=== PATIENT | male | born 1945 | race Caucasian/White ===

== ENCOUNTER 2023-06-05 06:37 | Day surgery (SDC) | payer MEDICARE, OTHER, SELFPAY ==
--- NOTE | 2023-05-31 14:16 | PTCARENOTE ---
Diagnosed with pneumonia in April 2023. Repeat chest x-ray on 05/30/23 continues to show pneumonia. Jazmín at Dr. Corcoran's office aware. Patient needs to be cleared by Primary Care Physician stating that he can proceed with schedule surgery.
[2023-06-05] VITALS (7 sets, daily range): BP systolic 122–178; BP diastolic 68–98; BMI 28.7
[2023-06-05] MEDS: LOVENOX 40 MG SC (13:19)
[2023-06-05] MEDS: TYLENOL 1000 MG PO (13:19)
[2023-06-05 13:27] LABS: Glucose - Point of Care 182 mg/dl (70-99)
[2023-06-05] MEDS: IC GREEN 2.5 MG IV (13:28)
[2023-06-05] MEDS: NORMOSOL-R 1000 IV (13:28)
[2023-06-05 13:46] LABS: INR 1.13; PT 14.7 Sec (11.4-14.6)
--- NOTE | 2023-06-05 15:16 | OR.RPT ---
Operative Report
Operative Report
Primary Surgeon: Jewell
Assisting: Nano GARNER
Pre-op Diagnosis: Acute calculous cholecystitis
Post-op Diagnosis: Same
Procedure Performed: Robot assisted laparoscopic cholecystectomy
Anesthesia Type: GETA
Specimen / Cultures: Gallbladder
Estimated Blood Loss: 10cc
Complications: None immediate
Operative Findings: Infundibulum encased in dense scar, ultimately taken with PDS endoloop.
Date of Surgery:� 06/05/23
Indications: This 77M developed acute calculous cholecystitis that was initially managed with percutaneous drain. Interval laparoscopic cholecystectomy was elected. Cholangiogram was performed outpatient in the interim demonstrating patent cystic
and common ducts.
Description of procedure: The patient was placed on the operating table in the supine position. General anesthesia was induced. A time-out was completed verifying correct patient, procedure, site, positioning, and special equipment prior to
beginning this procedure. An orogastric tube was placed. The abdomen was prepped and draped in the usual sterile fashion. The drain was prepped into the field. A stab incision was made in left upper quadrant and the Veress needle was inserted.
Proper position was confirmed by aspiration and saline meniscus test. The abdomen was insufflated with carbon dioxide to a pressure of 12mmHg. The patient tolerated insufflation well. Intra-abdominal mesh was not visible on inspection. All trocars
were placed superior to the level of the ileal conduit.
A 8mm trocar was then inserted above the umbilicus. The laparoscope was inserted and the abdomen inspected. No injuries from initial trocar placement or Veress needle insertion were noted. Additional 8mm trocars were then inserted in the following
locations: two in the right lower quadrant and to the left of the umbilicus and just above. The abdomen was inspected and no abnormalities were found. The table was placed in the reverse Trendelenburg position with the right side up. Filmy omental
and colonic adhesions were taken down. The dome of the gallbladder was grasped with an atraumatic grasper and retracted over the dome of the liver. The infundibulum was then grasped with an atraumatic grasper and retracted toward the right lower
quadrant. The infundibulum was encased in dense scar tissue. Dissection proceeded in an effort to fully expose Calot�s triangle. There was dense scar tissue encasing this area of the anatomy. A top down approach was used to take down the posterior
wall of the gallbladder from the liver bed until the gallbladder could be retracted away from the liver to reveal a single tubular structure connecting it to the liver. The common duct was identified with ICG and protected.
The cystic duct was then controlled with a PDS endoloop. The cystic artery was identified medially, controlled with bipolar and divided. The gallbladder was then dissected from its peritoneal attachments by electrocautery. Hemostasis was assured and
the gallbladder was removed using an endoscopic retrieval bag placed through the umbilical port. The gallbladder was passed off the table as a specimen. The gallbladder fossa was closely inspected and hemostasis was again assured. There was no
evidence of bleeding from the gallbladder fossa or cystic artery or leakage of the bile from the cystic duct stump. The umbilical trocar site was closed at the fascial level with 2-0 PDS. Secondary trocars were removed under direct vision and noted
to be hemostatic. The abdomen was allowed to collapse. The skin was closed with subcuticular sutures of 4-0 monocryl and topical skin adhesive. The orogastric tube was removed.
The patient tolerated the procedure well and was taken to the postanesthesia care unit in stable condition.
[2023-06-05 15:40] LABS: Glucose - Point of Care 214 mg/dl (70-99)
[2023-06-05] MEDS: NOVOLOG vial 2 UNITS SC (15:44)
== END 2023-06-05 17:08 | disposition home or self-care (01) ==
LOC: SDS 06:37
PROVIDERS: ATTENDING PHYSICIAN Surgery
DX: K80.00 Calculus of gallbladder with acute cholecystitis without obstruction (principal); K66.0 Peritoneal adhesions (postprocedural) (postinfection)
CPT/HCPCS: 47562; 88304; 82962; 85610; 87070

== ENCOUNTER 2023-07-17 09:06 | Emergency (ER) | payer MEDICARE, OTHER, SELFPAY ==
[2023-07-17 09:16] VITALS: BP 141/87
--- NOTE | 2023-07-17 09:49 | ED.GENMED ---
Addendum entered and electronically signed by Vahe Davey PA-C 07/20/23 07:56:
Culture results show pseudomonas. Changed omnicef to cipro. Spoke with patient. Sent script in.
Addendum entered and electronically signed by Vahe Davey PA-C 07/19/23 07:18:
Urine culture demonstrates greater than 100,000 colony-forming units of gram-negative bacilli. Spoke with patient. Called in prescription for Omnicef. Sensitivities pending
Original Note:
History of Present Illness
General
Chief Complaint: Breathing Problem
Source: patient
Time Seen by Provider: 07/17/23 09:28
Travel History
Have you had any contact with someone who has COVID-19?: No
Do you have any symptoms of coronavirus? Fever > 100 degrees, chills, cough, shortness of breath, sore throat, loss of taste or smell, muscle aches, or headache?: No
History of Present Illness
History of Present Illness:
77-year-old gentleman presents to the emergency room for evaluation of a sensation that he cannot take a deep breath. He does not feel out of breath or dyspneic but rather has a sensation that his ability to take a deep breath is restricted. He
also has occasional discomfort in the epigastrium. Patient denies any fever or chills. He has a urostomy and has had frequent urinary tract infections. Symptoms began after he began taking amoxicillin which she takes on his own when he feels like
he might have a urinary tract infection. He has since stopped taking amoxicillin.
Past History
Past History
ED Past Medical History: Arrthythmia (Atrial fib), Cancer (Bladder CA), GERD, HTN, Hypercholesterolemia, IDDM and Other (Ulcers, Diverticulitis; cholecystitis, neuropathy, chronic dizziness)
ED Past Surgical History: Appendectomy, Urological (Bladder CA with removal and Ileol conduit) and Other (Ventral hernia)
Social History
Tobacco: Former smoker
Alcohol: Occasional
Drug: None
Personal:
Living: with family
Employment: Retired
Family History
Family History: Other (Noncontributory)
Phy Exam
Physical Exam
Physical Exam:
General: Awake, Alert, Oriented X3. No acute distress. Appears stated age.
Vitals: unremarkable
Head: Atraumatic
Eyes: Pupils equal, EOMI
Throat: Airway intact, no exudates
Neck: Trachea midline
Lungs: Clear and equal b/l
Heart: Regular rate, no murmurs
Abd: Soft, Nontender, No pulsatile mass. Urostomy noted
Neuro: Nonfocal
Skin: Warm, dry, no rash
Extremities: pulses equal b/l, no edema
Scores
Heart Failure Risk
Heart Failure Risk Score: Not Applicable
Course
Orders/Labs/Results
Orders:
Orders
07/17/23 09:23
Electrocardiogram (*1) Urgent
Reason for Study: Shortness of Breath
EKG- Treatment ONCE
07/17/23 09:48
CR Chest - 2 Views Urgent
Comment:
Reason For Exam: shortness of breath
07/17/23 09:49
Cardiac Monitoring- Treatment ONCE
07/17/23 11:10
Complete Blood Count/With Diff Urgent
Comprehensive Metabolic Panel Urgent
Prothrombin Time Urgent
Troponin I Urgent
07/17/23 11:52
Urinalysis Reflex To Culture Urgent
Date Specimen was Collected: 07/17/23
Time Specimen was Collected: 11:50
Urine Microscopic Reflex Cult Urgent
Urine Culture Urgent
GREGG Source: U
Specimen Description:
Date Specimen was Collected: 07/17/23
Time Specimen was Collected: 11:50
Abnormal Lab Results
07/17/23 07/17/23
11:10 11:52
WBC 4.2 L 10^3/uL
(4.8-10.8)
RBC 3.93 L 10^6/uL
(4.70-6.10)
Hgb 12.1 L g/dL
(13.0-18.0)
Hct 36.2 L %
(39.0-52.0)
RDW 15.4 H %
(11.5-14.5)
Plt Count 103 L 10^3/uL
(130-400)
MPV 12.3 H fL
(7.4-10.4)
Absolute Lymphs (auto) 1.0 L 10^3/uL
(1.2-3.4)
Immature Gran % 1.0 H %
(0-0.5)
PT 25.8 H Sec
(11.4-14.6)
Sodium 134 L mmol/L
(135-145)
Carbon Dioxide 21 L mmol/L
(22-30)
BUN 24 H mg/dl
(9-20)
Creatinine 1.4 H mg/dL
(0.7-1.3)
Glucose 234 H mg/dl
(70-99)
Urine Ketones Trace A
(Negative)
Ur Occult Blood Reflex 1+ A
(Negative)
Leukocyte Esterase Rfl 2+ A
(Negative)
Urine WBC (Reflex) 11-15 A /HPF
(0-5)
Urine Bacteria (Reflex) Few A
(Negative)
07/17/23 11:10
07/17/23 11:10
Vital Signs
Initial and Last Documented VS:
Initial Vital Signs
Temp Pulse Resp BP Pulse Ox
98.0 F 106 16 141/87 98
07/17/23 09:16 07/17/23 09:16 07/17/23 09:16 07/17/23 09:16 07/17/23 09:16
Last Documented Vital Signs
Temp Pulse Resp BP Pulse Ox
97.7 F 73 16 145/72 96
07/17/23 13:58 07/17/23 13:58 07/17/23 13:58 07/17/23 13:58 07/17/23 13:58
MDM/Problems Addressed
Differential Diagnosis Includes:
Heart failure, dehydration bronchitis
MDM/Problems Addressed:
Patient has labs here which are reassuring. There is no significant anemia. Chemistries show mild elevation of BUN and creatinine which is baseline for the patient. Troponin is normal. Urinalysis shows 11-50 WBCs per high-power field but given
he has a urostomy I am not convinced this reflects infection. Culture will be sent and treatment can be initiated if he does not fact grow something from his urine culture. No evidence for an unstable process requiring hospitalization. Patient
will be discharged home. Return for feeling worse.
Chronic conditions affecting care: Arrhythmia (Atrial fibrillation)
*Radiology
Radiology exam reviewed: radiology read reviewed
*Pulse Oximetry
Patient hypoxic: no
*EKG
Interpreted by ED Provider?: Yes
Interpretation: abnormal
Comparison EKG: no changes
Heart Rate: 94
Rate: normal
Rhythm: a-fib
[place]: normal axis
Interval: normal interval
QRS Pattern: normal QRS
Ischemia: non-specific ST changes
*Loan Closer Interpretation
Rate: normal
Rhythm: a-fib
*Critical Care Note
Total Time (30-74mins, 75-104mins- exclusive of procedures): Not Applicable
ED Attending Note
-
Portions of this chart may have been created with voice recognition software.� Occasional wrong word or��sound alike� substitutions may have occurred due to the inherent limitations of voice recognition software.
Discharge Plan
Departure
Patient Disposition: Home (Routine Discharge)
Date of Disposition: 07/17/23
Time of Disposition: 13:26
Patient with high blood pressure during this ER visit?: Yes
Condition: Good
Discharge Problem:
Acute dyspnea
Instructions: Shortness of Breath (Dyspnea) (DC), BLOOD PRESSURE
Prescriptions:
No Action
acetaminophen 650 mg Tablet Extended Release
650 mg PO Q8HPRN PRN (Reason: mild pain)
warfarin 5 mg tablet
10 mg PO FR
Hold Instructions: Resume on 03/24/23. Hold warfarin for now pending INR improvement to 3 or less or otherwise instructed by your primary care provider
insulin aspart U-100 [Novolog FlexPen U-100 Insulin] 100 unit/mL (3 mL) Insulin Pen
4 unit SC QPM
Levemir FlexPen 100 unit/mL (3 mL) Insulin Pen
22 unit SC HS
warfarin [Jantoven] 5 MG tablet
5 mg PO SUMOTUWETHSA
Hold Instructions: Resume on 03/24/23. Hold warfarin for now pending INR improvement to 3 or less or otherwise instructed by your primary care provider
insulin aspart U-100 [Novolog FlexPen U-100 Insulin] 300 UNITS/3 ML insulin pen
5 units SC BID@0800,1200
omeprazole 40 mg Capsule,Delayed Release(Dr/Ec)
40 mg PO DAILY
metoprolol succinate 50 mg tablet extended release 24 hr
25 mg PO DAILY
melatonin 5 mg Tablet
5 mg PO HS PRN (Reason: sleep)
oxycodone 5 mg tablet
5 mg PO Q4HPRN PRN (Reason: moderate to severe pain) Qty: 20 0RF
Referrals:
Raphael Lam MD [Family Provider] -
Activity Restrictions/Additional Instructions:
Please follow up with your primary care provider. Return if you feel you are getting worse.
Interventions
Interventions:
*Risk Screen - Suicide Last Done: 07/17/23 10:07
*General Assessment Last Done: 07/17/23 10:07
*Neglect/Abuse Screening Last Done: 07/17/23 13:00
*ED COVID-19 Vaccine History Last Done: 07/17/23 09:16
*Nursing Disposition Last Done: 07/17/23 13:58
ED- Cardiac Assessment Last Done: 07/17/23 12:45
ED- Pulmonary Assessment Last Done: 07/17/23 12:45
Discharge Date and Time
Discharge Date/Time: 07/17/23 14:06
[2023-07-17 10:05] VITALS: BMI 29.1
[2023-07-17 11:33] LABS: INR 2.37; PT 25.8 Sec (11.4-14.6)
[2023-07-17 11:34] LABS: % Eosinophils 2.4 % (0-6); % Lymphocytes 24.4 % (20.5-51.1); % Monocytes 4.3 % (1.7-9.3); % Neutrophils 66.9 % (42.2-75.2); Absolute Eosinophils 0.1 10^3/uL (0-0.7); Absolute Monocytes 0.2 10^3/uL (0.1-0.6); Absolute Neutrophils 2.8 10^3/uL (1.4-6.5); Hematocrit 36.2 % (39.0-52.0); Hemoglobin 12.1 g/dL (13.0-18.0); Mean Corp Hgb Conc. 33.4 g/dL (33.0-37.0); Mean Corpuscular Hgb 30.8 pg (27.0-31.0); Mean Corpuscular Volume 92.1 fL (80.0-94.0); Mean Platelet Volume 12.3 fL (7.4-10.4); Nucleated Red Blood Cells % 0 % (-); Platelet Count 103 10^3/uL (130-400); Red Blood Cell Count 3.93 10^6/uL (4.70-6.10); Red Cell Dist. Width 15.4 % (11.5-14.5); White Blood Cell Count 4.2 10^3/uL (4.8-10.8)
[2023-07-17 11:36] LABS: ALT (SGPT) 14 U/L (0-50); AST (SGOT) 23 U/L (17-59); Alkaline Phosphatase 95 U/L (38-126); Blood Urea Nitrogen 24 mg/dl (9-20); Calcium 8.9 mg/dl (8.4-10.2); Carbon Dioxide 21 mmol/L (22-30); Chloride 106 mmol/L (98-107); Estimated Creatinine Clearance 50 ml/min; Glucose 234 mg/dl (70-99); Potassium 4.5 mmol/L (3.5-5.1); Sodium 134 mmol/L (135-145); Total Bilirubin 1.1 mg/dl (0.2-1.3); Total Protein 6.8 g/dl (6.3-8.2); eGFR 51.77
[2023-07-17 11:47] LABS: Troponin I < 0.012 ng/ml
[2023-07-17 11:55] VITALS: BP 143/89
[2023-07-17 12:00] VITALS: BP 164/77
[2023-07-17 12:03] LABS: Urine Albumin Trace (Neg - Trace); Urine Bilirubin Negative (Negative); Urine Character Clear (Clear); Urine Color Yellow; Urine Glucose Negative (Negative); Urine Ketone Trace (Negative); Urine Leukocyte 2+ (Negative); Urine Nitrite Negative (Negative); Urine Occult Blood 1+ (Negative); Urine Specific Gravity 1.005 (<1.030); Urine Urobilinogen Negative (Neg - 1+)
[2023-07-17 12:10] LABS: Urine Red Blood Cell 0-2 /HPF (0-2); Urine Squamous Cell 0-2 /LPF (Few)
[2023-07-17 12:11] LABS: Urine Bacteria Few (Negative)
[2023-07-17 13:00] VITALS: BP 145/72
[2023-07-17 13:58] VITALS: BP 145/72
== END 2023-07-17 14:06 | disposition home or self-care (01) ==
LOC: EMR 09:06
PROVIDERS: EMERGENCY PHYSICIAN Emergency Medicine; FAMILY PHYSICIAN Internal Medicine
DX: R06.09 Other forms of dyspnea (principal); I10 Essential (primary) hypertension
CPT/HCPCS: 99285; 71046; 80053; 81003; 81015; 84484; 85025; 85610; 87077; 87086; 87186; 93005; 99284

== ENCOUNTER → 2023-08-23 11:10 | Outpatient (REF) | payer MEDICARE, OTHER, SELFPAY | LOC: RAD 11:10 | PROVIDERS: ATTENDING PHYSICIAN Internal Medicine Critical Care Medicine; FAMILY PHYSICIAN Internal Medicine | DX: J84.9 Interstitial pulmonary disease, unspecified (principal) | CPT/HCPCS: 71250 ==

== ENCOUNTER → 2023-09-14 06:34 | Day surgery (SDC) | payer MEDICARE, OTHER, SELFPAY ==
[2023-09-14 10:50] LABS: Glucose - Point of Care 122 mg/dl (70-99)
== END ==
LOC: GI 06:34
PROVIDERS: ATTENDING PHYSICIAN Internal Medicine Gastroenterology
DX: K31.7 Polyp of stomach and duodenum (principal); K31.89 Other diseases of stomach and duodenum; Q39.9 Congenital malformation of esophagus, unspecified; R13.10 Dysphagia, unspecified
CPT/HCPCS: 43239; 88305; 82962; 88342

== ENCOUNTER 2023-11-14 06:30 | Day surgery (SDC) | payer MEDICARE, OTHER, SELFPAY ==
[2023-11-14 12:41] VITALS: BMI 29.7
[2023-11-14 12:51] VITALS: BMI 29.7
[2023-11-14 12:51] LABS: Glucose - Point of Care 147 mg/dl (70-99)
[2023-11-14 12:53] VITALS: BP 147/92
[2023-11-14 15:12] VITALS: BP 125/61
[2023-11-14 15:15] VITALS: BP 135/84
[2023-11-14 15:18] LABS: Glucose - Point of Care 136 mg/dl (70-99)
[2023-11-14 15:37] VITALS: BP 144/61
== END 2023-11-14 16:12 | disposition home or self-care (01) ==
LOC: SDS 06:30
PROVIDERS: ATTENDING PHYSICIAN Internal Medicine Gastroenterology
DX: D49.0 Neoplasm of unspecified behavior of digestive system (principal); D12.2 Benign neoplasm of ascending colon; K64.0 First degree hemorrhoids
CPT/HCPCS: 45390; 88305; 82962

== ENCOUNTER → 2023-11-22 11:11 | Outpatient (REF) | payer MEDICARE, OTHER, SELFPAY | LOC: RCS 11:11 | PROVIDERS: ATTENDING PHYSICIAN Internal Medicine Cardiovascular Disease; FAMILY PHYSICIAN Internal Medicine | DX: I48.21 Permanent atrial fibrillation (principal); I10 Essential (primary) hypertension; N17.9 Acute kidney failure, unspecified; E11.9 Type 2 diabetes mellitus without complications; R06.02 Shortness of breath; Z79.01 Long term (current) use of anticoagulants | CPT/HCPCS: 93306 ==

== ENCOUNTER 2023-11-24 17:11 | Inpatient (IN) | payer MEDICARE, OTHER, SELFPAY ==
[2023-11-24] VITALS (13 sets, daily range): BP systolic 93–141; BP diastolic 46–70; BMI 28.6
[2023-11-24 13:08] LABS: ALT (SGPT) 23 U/L (0-50); AST (SGOT) 28 U/L (17-59); Albumin 3.6 g/dl (3.5-5.0); Alkaline Phosphatase 91 U/L (38-126); Blood Urea Nitrogen 37 mg/dl (9-20); Calcium 8.7 mg/dl (8.4-10.2); Carbon Dioxide 18 mmol/L (22-30); Chloride 109 mmol/L (98-107); Estimated Creatinine Clearance 42 ml/min; Glucose 245 mg/dl (70-99); Potassium 5.1 mmol/L (3.5-5.1); Sodium 137 mmol/L (135-145); Total Protein 5.9 g/dl (6.3-8.2)
--- NOTE | 2023-11-24 13:31 | ED.GENMED ---
History of Present Illness
<Vahe Davey PA-C - Last Filed: 11/24/23 15:29>
General
Chief Complaint: Rectal Bleeding
Source: patient
Time Seen by Provider: 11/24/23 13:04
History of Present Illness
History of Present Illness:
77 year old male on Coumadin for a-fib presents with fatigue, JORGE, and large black and red tinged BM this AM. He feels lightheaded upon standing. He had colonoscopy 2 weeks ago and had polyps removed. He had been doing well after the procedure,
but had some constipation. Was recommended to take miralax which he last took 2 days ago. He admits to 2-3 drinks a week. No NSAIDS. last INR was yesterday which was 2.0. He was also told he had a low platelet count recently and was referred to
hematology. No abdominal or chest pain.
Past History
<Vahe Davey PA-C - Last Filed: 11/24/23 15:29>
Past History
ED Past Medical History: Arrthythmia (Atrial fib), Cancer (Bladder CA), GERD, HTN, Hypercholesterolemia, IDDM and Other (Ulcers, Diverticulitis; cholecystitis, neuropathy, chronic dizziness)
ED Past Surgical History: Appendectomy, Urological (Bladder CA with removal and Ileol conduit) and Other (Ventral hernia)
Social History
Tobacco: Former smoker
Alcohol: Occasional
Drug: None
Personal:
Living: with family
Employment: Retired
Family History
Family History: Other (Noncontributory)
Phy Exam
<Vahe Davey PA-C - Last Filed: 11/24/23 15:29>
Physical Exam
Physical Exam:
General: Pale appearing male, nad
HEENT: nc/at
Heart, tachycardic and irregular
Lungs: CTA
ABd: Soft, nontender, urostomy noted in RLQ
Ext No cyanosis or edema
Skin: warm norash
Rectal: Dark colored stool, heme positive.
Course
<Vahe Davey PA-C - Last Filed: 11/24/23 15:29>
Orders/Labs/Results
Orders:
Orders
11/24/23 12:18
EKG [Electrocardiogram (*1)] Urgent
Reason for Study: Vertigo / Dizzy
EKG- Treatment ONCE
11/24/23 12:33
Type+Screen Urgent
Complete Blood Count/With Diff Urgent
Comprehensive Metabolic Panel Urgent
Prothrombin Time Urgent
11/24/23 13:22
Pantoprazole [Protonix IV] 80 mg IV NOW STA
11/24/23 13:30
Pantoprazole 80 mg/100 ml Nss [Protonix] 80 mg in 100 ml IV Q10H
11/24/23 14:35
Blood Bank Products [* Blood Bank Products] Urgent
Blood Bank Products: *Packed RBC Leuko(PRBC's)
Quantity: 1
Transfuse Today: Yes
Reason: Anemia
11/24/23 14:51
Phytonadione [Mephyton] 10 mg PO NOW STA
Abnormal Lab Results
11/24/23
12:33
WBC 1.8 L* 10^3/uL
(4.8-10.8)
RBC 2.47 L 10^6/uL
(4.70-6.10)
Hgb 7.8 L g/dL
(13.0-18.0)
Hct 23.5 L %
(39.0-52.0)
MCV 95.1 H fL
(80.0-94.0)
MCH 31.6 H pg
(27.0-31.0)
RDW 17.0 H %
(11.5-14.5)
Plt Count 61 L 10^3/uL
(130-400)
MPV 13.7 H fL
(7.4-10.4)
Absolute Neuts (auto) 0.9 L* 10^3/uL
(1.4-6.5)
Absolute Lymphs (auto) 0.7 L 10^3/uL
(1.2-3.4)
Immature Gran % 1.1 H %
(0-0.5)
PT 24.4 H Sec
(11.4-14.6)
Chloride 109 H mmol/L
(98-107)
Carbon Dioxide 18 L mmol/L
(22-30)
BUN 37 H mg/dl
(9-20)
Creatinine 1.6 H mg/dL
(0.7-1.3)
Glucose 245 H mg/dl
(70-99)
Total Protein 5.9 L g/dl
(6.3-8.2)
11/24/23 12:33
11/24/23 12:33
Vital Signs
Initial and Last Documented VS:
Initial Vital Signs
BP
133/62
11/24/23 12:07
Last Documented Vital Signs
Temp Pulse Resp BP Pulse Ox
97.8 F 101 34 93/46 100
11/24/23 12:08 11/24/23 13:15 11/24/23 13:15 11/24/23 13:01 11/24/23 13:15
Annielt;Francois Frederick DO - Last Filed: 11/24/23 15:33>
Orders/Labs/Results
Orders:
Orders
11/24/23 12:18
EKG [Electrocardiogram (*1)] Urgent
Reason for Study: Vertigo / Dizzy
EKG- Treatment ONCE
11/24/23 12:33
Type+Screen Urgent
Complete Blood Count/With Diff Urgent
Comprehensive Metabolic Panel Urgent
Prothrombin Time Urgent
11/24/23 13:22
Pantoprazole [Protonix IV] 80 mg IV NOW STA
11/24/23 13:30
Pantoprazole 80 mg/100 ml Nss [Protonix] 80 mg in 100 ml IV Q10H
11/24/23 14:35
Blood Bank Products [* Blood Bank Products] Urgent
Blood Bank Products: *Packed RBC Leuko(PRBC's)
Quantity: 1
Transfuse Today: Yes
Reason: Anemia
11/24/23 14:51
Phytonadione [Mephyton] 10 mg PO NOW STA
Abnormal Lab Results
11/24/23
12:33
WBC 1.8 L* 10^3/uL
(4.8-10.8)
RBC 2.47 L 10^6/uL
(4.70-6.10)
Hgb 7.8 L g/dL
(13.0-18.0)
Hct 23.5 L %
(39.0-52.0)
MCV 95.1 H fL
(80.0-94.0)
MCH 31.6 H pg
(27.0-31.0)
RDW 17.0 H %
(11.5-14.5)
Plt Count 61 L 10^3/uL
(130-400)
MPV 13.7 H fL
(7.4-10.4)
Absolute Neuts (auto) 0.9 L* 10^3/uL
(1.4-6.5)
Absolute Lymphs (auto) 0.7 L 10^3/uL
(1.2-3.4)
Immature Gran % 1.1 H %
(0-0.5)
PT 24.4 H Sec
(11.4-14.6)
Chloride 109 H mmol/L
(98-107)
Carbon Dioxide 18 L mmol/L
(22-30)
BUN 37 H mg/dl
(9-20)
Creatinine 1.6 H mg/dL
(0.7-1.3)
Glucose 245 H mg/dl
(70-99)
Total Protein 5.9 L g/dl
(6.3-8.2)
11/24/23 12:33
11/24/23 12:33
Vital Signs
Initial and Last Documented VS:
Initial Vital Signs
BP
133/62
11/24/23 12:07
Last Documented Vital Signs
Temp Pulse Resp BP Pulse Ox
97.8 F 101 34 93/46 100
11/24/23 12:08 11/24/23 13:15 11/24/23 13:15 11/24/23 13:01 11/24/23 13:15
<Vahe Davey PA-C - Last Filed: 11/24/23 15:29>
MDM/Problems Addressed
Differential Diagnosis Includes:
Dyspnea, lightheadedness. Consider anemia given rectal bleeding. Labs pending. INR pending. Protonix ordered.
<Vahe Davey PA-C - Last Filed: 11/24/23 15:29>
*Critical Care Note
Total Time (30-74mins, 75-104mins- exclusive of procedures): Not Applicable
<Vahe Davey PA-C - Last Filed: 11/24/23 15:29>
Update Note
Update Note:
Patient has pancytopenia with a white blood cell count of 1.8, hemoglobin 7.8 platelet count of 61,000. Absolute neutrophils are 0.9. Blood consent obtained for transfusion of red blood cells. Will order vitamin K and Protonix. Reached out to
hematology for recommendations for platelet transfusion.
ED Attending Note
<Vahe Davey PA-C - Last Filed: 11/24/23 15:29>
-
Portions of this chart may have been created with voice recognition software.� Occasional wrong word or��sound alike� substitutions may have occurred due to the inherent limitations of voice recognition software.
<Francois Frederick DO - Last Filed: 11/24/23 15:33>
ED Attending Note
Patient seen and examined by attending physician: Yes
I performed the substantive portion of visit, reviewed & personally made and approve the management plan that is documented in note by myself or LAURI.: Yes
ED Attending Note:
Patient presents with symptoms of GI bleeding. He does take Coumadin. Patient had a colonoscopy about 2 weeks ago. At that time he had a large polyp removed as well as some smaller polyps.
He is hemodynamically stable.
General: Awake, Alert, Oriented X3. No acute distress.
Vitals: unremarkable
Head: Atraumatic
Eyes: Pupils equal, EOMI
Throat: Airway intact, no exudates
Abd: Soft, Nontender, No pulsatile mass
Neuro: Nonfocal
Skin: Warm, dry, no rash
Extremities: pulses equal b/l, no edema
Labs show pancytopenia, platelet count in particular is low at 61. Hemoglobin is 7.8. Chemistries show elevation in BUN and creatinine.
Given patient is hemodynamically stable we will treat the Coumadin coagulopathy with vitamin K. Patient will receive a transfusion of blood. As platelet count is above 50 will hold off on platelets at this time. Hero will reach out to oncology
to see if they have a different recommendation. Patient will be admitted to the hospital service for close monitoring. Protonix started.
Discharge Plan
Departure
Patient Disposition: Admit
Date of Disposition: 11/24/23
Time of Disposition: 15:28
Admit to: Telemetry
Presentation/result/management discussed w/ accepting MD/DO: Hospitalist
Discharge Problem:
Acute GI bleeding, Anemia, Pancytopenia
Prescriptions:
No Action
acetaminophen 650 mg Tablet Extended Release
650 mg PO Q8HPRN PRN (Reason: mild pain)
warfarin 5 mg tablet
5 mg PO SUMOTUWE@1900
insulin aspart U-100 [Novolog FlexPen U-100 Insulin] 100 unit/mL (3 mL) Insulin Pen
7 unit SC QPM
warfarin [Jantoven] 5 MG tablet
7.5 mg PO THFRSA@1900
insulin aspart U-100 [Novolog FlexPen U-100 Insulin] 300 UNITS/3 ML insulin pen
5 units SC BID@0800,1200
omeprazole 40 mg Capsule,Delayed Release(Dr/Ec)
40 mg PO DAILY
melatonin 5 mg Tablet
5 mg PO HS
polyethylene glycol 3350 [Miralax] 17 gram Powder In Packet
17 g PO DAILYPRN PRN (Reason: constipation)
metoprolol succinate [Toprol XL] 25 mg Tablet Extended Release 24 Hr
25 mg PO DAILY
insulin degludec 100 unit/mL (3 mL) Insulin Pen
23 unit SC HS
Referrals:
Raphael Lam MD [Family Provider] -
Interventions
Interventions:
*Risk Screen - Suicide Last Done: 11/24/23 12:14
*General Assessment Last Done: 11/24/23 12:14
*Neglect/Abuse Screening Last Done: 11/24/23 12:14
ED- Fall Risk Assessment Last Done: 11/24/23 12:20
*ED COVID-19 Vaccine History Last Done: 11/24/23 12:14
TQ-Uodsku-Rzhipmypqf Assessment Last Done: 11/24/23 12:19
ED- Cardiac Assessment Last Done: 11/24/23 12:19
ED- Pulmonary Assessment Last Done: 11/24/23 12:19
Discharge Date and Time
Print Language: CROATIAN
[2023-11-24] MEDS: PROTONIX IV 80 MG IV (13:34)
[2023-11-24] MEDS: PROTONIX 100 IV (13:35)
[2023-11-24 13:36] LABS: Hematocrit 23.5 % (39.0-52.0); Hemoglobin 7.8 g/dL (13.0-18.0); Mean Corp Hgb Conc. 33.2 g/dL (33.0-37.0); Mean Corpuscular Hgb 31.6 pg (27.0-31.0); Mean Corpuscular Volume 95.1 fL (80.0-94.0); Red Blood Cell Count 2.47 10^6/uL (4.70-6.10); White Blood Cell Count 1.8 10^3/uL (4.8-10.8)
[2023-11-24 14:19] LABS: % Basophils 1.7 % (0-2); % Eosinophils 0.6 % (0-6); % Immature Granulocytes 1.1 % (0-0.5); % Monocytes 6.7 % (1.7-9.3); % Neutrophils 51.9 % (42.2-75.2); Absolute Lymphocytes 0.7 10^3/uL (1.2-3.4); Absolute Monocytes 0.1 10^3/uL (0.1-0.6); Absolute Neutrophils 0.9 10^3/uL (1.4-6.5); Mean Platelet Volume 13.7 fL (7.4-10.4); Nucleated Red Blood Cells % 3.4 % (-); Platelet Count 61 10^3/uL (130-400)
[2023-11-24 14:50] LABS: INR 2.21; PT 24.4 Sec (11.4-14.6)
[2023-11-24] MEDS: MEPHYTON 10 MG PO (15:12)
--- NOTE | 2023-11-24 15:53 | HPS.HSE ---
Family Physician
-
Family Physician: Raphael Lam
Chief Complaint
-
black stool
History of Present Illness
77 year old male who states yesterday he had 1 episode of black stool. he did take his coumadin at 8pm on 11/22/23 for permanent Afib,.TOday he states he has large black tarry bowel mvmt at home and felt short of breath. he denies fever , chills, abd
pain, nausea, vomiting, cp,palpitations, cough, sob,indigestion. He did take his am omeprazole today only. He is status post colonoscopy with polypectomy and argon plasma coag, clips placed in 11/14/23 and had internal hemorrhoids on exam. Last colo
2019 with benign polypectomy. He has PMH Bladder cancer 2010 s/p chemo radiation and bladder resection with permanent Ileal Conduit, prostatectomy , Permanent afib on coumadin, HTN, DM, copd/ild, dilated aortic root 4.2 cm.
Medical History
Past Medical History
Past Medical History: Reports Other
Additional Past Medical History:
Permanent Atrial Fibrillation
Hypertension
DM-II
Bladder Cancer s/p TURBT and Systemic Chemo 2010 and permaent Ileal Conduit
GERD
DJD / DDD
COPD
Past Surgical History: Reports Other
Additional Past Surgical History:
Cystectomy / Prostatectomy / Ileal Conduit
Appendectomy
Hernia Repair
Social History
Tobacco: Former Smoker (Quit smoking in 1996 prior day 27 years )
Alcohol: Occasional
Personal:
Living: With Family ( iqra)
Employment: Retired
Family History
Family History: Other (no family hx colon ca, dad FTT, cva, mother sepsis uti no siblings )
Allergies / Home Medications
Allergies reflects when Allergies were last updated in [employer].
Home Medications with original date entered in [employer]
Allergy/Medication List:
Allergies
Allergy/AdvReac Type Severity Reaction Status Date / Time
pollen extracts Allergy SEASONAL-NASAL Verified 11/24/23 12:06
SYMPTOMS
sulfamethoxazole Allergy lip Verified 11/24/23 12:06
[From Bactrim] swelling
tetracycline Allergy Swelling/'penis Verified 11/24/23 12:06
swells up'.
trimethoprim [From Bactrim] Allergy lip Verified 11/24/23 12:06
swelling
Home Medications
acetaminophen 650 mg tablet,extended release 650 mg PO Q8HPRN PRN mild pain 03/15/23
insulin aspart U-100 100 unit/mL (3 mL) subcutaneous pen (Novolog FlexPen U-100 Insulin aspart) 5 units SC BID@0800,1200 Diabetes 03/15/23
insulin aspart U-100 100 unit/mL (3 mL) subcutaneous pen (Novolog FlexPen U-100 Insulin aspart) 7 unit SC QPM Diabetes 03/15/23
warfarin 5 mg tablet 5 mg PO SUMOTUWE@1900 Blood Clot Prevention/Tx 03/15/23
warfarin 5 mg tablet (Jantoven) 7.5 mg PO THFRSA@1900 Blood clot prevention/tx 03/15/23
omeprazole 40 mg capsule,delayed release 40 mg PO DAILY 05/31/23
melatonin 5 mg tablet 5 mg PO HS sleep 06/05/23
insulin degludec 100 unit/mL (3 mL) subcutaneous pen 23 unit SC HS 11/24/23
metoprolol succinate 25 mg tablet,extended release 24 hr (Toprol XL) 25 mg PO DAILY 11/24/23
polyethylene glycol 3350 17 gram oral powder packet (Miralax) 17 g PO DAILYPRN PRN constipation 11/24/23
Review of Systems
-
History Source: Patient
A 12 point ROS was completed and negative except as noted: Yes
Constitutional: Denies Fever, Fatigue or Chills
EENT: Denies Sore Throat or Runny Nose
Respiratory: Denies Cough or Trouble Breathing
Cardiac: Denies Chest Pain, Diaphoresis, Palpitations or Syncope
Abdomen/GI: Reports Black Stools (x 2); Denies Abdominal Pain, Nausea, Vomiting, Diarrhea or Constipated
: Reports Other (permament ileal conduit right side abd)
Musculoskeletal: Denies Joint Pain or Edema
Skin: Denies Itching or Rash
Neurological: Denies Dizzy, Headache or Weakness
Endocrine: Reports No Symptoms
Hematologic/Lymphatic: Reports No Symptoms
Psych: Reports Calm
Physical Exam
Vital Signs
Vital Signs
Temp Pulse Resp BP Pulse Ox
97.8 F 101 34 93/46 100
11/24/23 12:08 11/24/23 13:15 11/24/23 13:15 11/24/23 13:01 11/24/23 13:15
Physical Exam
General: Comfortable and Conversant; No Pain, Fever or Chills
HEENT: NormoCephalic, Anicteric, PERRLA, [place] Conjunctivae and No Ptosis
Respiratory: Clear; No Wheezes, Rales or Rhonchi
Cardiac: S1/S2 and Irregular Rhythm (afib 101); No Murmur, Rub, Gallop or Peripheral Edema
Breast: Deferred by me
GI: Soft, Non Tender, Non Distended, Normal Bowel Sounds and Other (permament ileal conduit right side abd)
Rectal: Hem Positive (black stools)
Genito-urinary: Deferred by me
Musculoskeletal: No Clubbing, No Cyanosis and No Edema
Skin: Warm and Dry; No Rash
Neuro: AO x 3, No Motor Deficits, Nonfocal/grossly intact, Cranial Nerves Intact and No Sensory Deficits; No Slurred Speech, Facial Droop or Tremors
Psych: Calm
Laboratory Results
-
11/24/23 12:33
11/24/23 12:33
Laboratory Results
PT 24.4 Sec (11.4-14.6) H 11/24/23 12:33
INR 2.21 11/24/23 12:33
Total Bilirubin 1.0 mg/dl (0.2-1.3) 11/24/23 12:33
AST 28 U/L (17-59) 11/24/23 12:33
ALT 23 U/L (0-50) 11/24/23 12:33
Alkaline Phosphatase 91 U/L (38-126) 11/24/23 12:33
Data Reviewed
-
Lab Data: Labs Reviewed by me
Impression/Plan
-
Impression/Plan:
Admit to TELE
#GI bleed is s/p colonoscopy 11/13 with benign polypectomy and argon plasma coag, clips placed and on Coumadin
Heme black + in Er , 2 days black stool tarry x 2 episodes
-type and screen ,transfuse 1 unit prbc
-Iv ppi bid
- clear liquid diet
- HOLD Coumadin
- follow cbc, bmp
COLO 11/14/23:One 45 mm polyp in the ascending colon, removed with
mucosal resection. Resected and retrieved. Treated
with argon plasma coagulation (APC). Clips (MR
conditional) were placed.
- Three 4 to 9 mm polyps in the ascending colon,
removed with a cold snare. Resected and retrieved.
- Internal hemorrhoids.
- Mucosal resection was performed. Resection and
retrieval were complete.
, First degree hemorrhoids
#Hypotension 2/2 blood loss anemia /Benign HTN
- bp 93/64 improving slowly
monitor BP
-type and screen , transfuse 1 unit prbc
# Acute Pancytopenia Unclear etiology
wbc 1.4 hgb 7.8, plt 61
- transfuse 1 uit prbc
- follow cbc
- consult HEME
#Permanent AFIB on coumadin
- INR 2.23 will give VIt k given GI bleed pancytopenia
-HOLD Coumadin
- HOLD BB
EKG: AFIB 90 bpm no change from 07/2023
2D echo 11/22/23: EF 55-60 , nml LVS/LVSF
Diastolic function indeterminate.
Aortic sclerosis without stenosis.
Mildly dilated aortic root
Compared to previous report from 2019 the reported aortic root measurement is
mildly greater. Previously 3.9 cm
#Hx dilated aortic root 4.2 cm from 3.9 cm
#DM 2
A1c 7.12 mar 2023
accuchecks with SSI
-may have clear liquid
- cont 12 units half dose of deglucad isulin then SSI low
#COPD/ILD hx
former smoker 27 year 2ppd stopped 1996
-was on prior nebs
# CKD III 3b
-creat 1.6 baseline appears 1.3
follow bmp
#Bladder cancer 2010 s/p chemo radiation and bladder resection with permanent Ileal Conduit
# Prostatectomy
draining clear urine
Dvt proph
- scd's bilat
full code
--- NOTE | 2023-11-24 17:01 | CON.GI ---
Consultation
-
Date/Time Consultation Requested: 11/24/23 4:18pm
Date/Time Consultation Performed: 11/24/23 5:02pm
Requesting Provider: Tiffanie Melendrez
Performing Provider: Cody Vasquez
Reason for Consultation: Rectal bleeding
Medical History
Chief Complaint / HPI
Chief Complaint: Rectal bleeding
History of Present Illness:
Patient is a 77-year-old male who had colonoscopy for mucosal resection of a 45 mm ascending colon carpet like polyp on November 13. The pathology was tubulovillous with foci of high-grade dysplasia. The polypectomy site was treated with APC and
clipped x 5. He did not have any problems post polypectomy until this morning when he passed a large tarry stool that was black with tint of red. This occurred at 6 AM and he had another mostly liquid bowel movement at 10 AM with some dark
material at the bottom of the toilet bowl. He did feel dizzy and lightheaded during both of these bowel movements but did not pass out. He denies any abdominal pain. Hemoglobin is 7.8 down from 12.1 in July. A few days ago PCP ordered CBC and
noted WBC was low. He was referred to Hematology and has an upcoming appt. Drinks 2-3 scotch per week.
Past Medical History
Past Medical History: Arrhythmias (Afib), COPD, HTN, NIDDM and Other (Bladder CA)
Past Surgical History: Other (Ileal conduit)
Social History
Tobacco: Former Smoker
Alcohol: Occasional
Family History
Family History: Reviewed & Not Pertinent
Allergies / Home Medications
Allergy/AdvReac Type Severity Reaction Status Date / Time
pollen extracts Allergy SEASONAL-NASAL Verified 11/24/23 12:06
SYMPTOMS
sulfamethoxazole Allergy lip Verified 11/24/23 12:06
[From Bactrim] swelling
tetracycline Allergy Swelling/'penis Verified 11/24/23 12:06
swells up'.
trimethoprim [From Bactrim] Allergy lip Verified 11/24/23 12:06
swelling
�Medication �Instructions �Recorded
acetaminophen 650 mg 650 mg PO Q8HPRN PRN mild pain 03/15/23
tablet,extended release
insulin aspart U-100 100 unit/mL 5 units SC BID@0800,1200 Diabetes 03/15/23
(3 mL) subcutaneous pen (Novolog
FlexPen U-100 Insulin aspart)
insulin aspart U-100 100 unit/mL 7 unit SC QPM Diabetes 03/15/23
(3 mL) subcutaneous pen (Novolog
FlexPen U-100 Insulin aspart)
warfarin 5 mg tablet 5 mg PO SUMOTUWE@1900 Blood Clot 03/15/23
Prevention/Tx
warfarin 5 mg tablet (Jantoven) 7.5 mg PO THFRSA@1900 Blood clot 03/15/23
prevention/tx
omeprazole 40 mg capsule,delayed 40 mg PO DAILY 05/31/23
release
melatonin 5 mg tablet 5 mg PO HS sleep 06/05/23
insulin degludec 100 unit/mL (3 23 unit SC HS 11/24/23
mL) subcutaneous pen
metoprolol succinate 25 mg 25 mg PO DAILY 11/24/23
tablet,extended release 24 hr
(Toprol XL)
polyethylene glycol 3350 17 gram 17 g PO DAILYPRN PRN constipation 11/24/23
oral powder packet (Miralax)
Review of Systems
-
All other systems: A 12 pt ROS was Negative except as stated above in HPI
Vital Signs
Temp Pulse Resp BP Pulse Ox
98.1 F 88 19 111/56 100
11/24/23 16:45 11/24/23 16:45 11/24/23 16:45 11/24/23 16:45 11/24/23 16:45
Physical Exam
Exam
General: No Apparent Distress
HEENT: Normocephalic and Atraumatic
Respiratory: Non Labored Respirations
GI: Soft, Non Tender, Non Distended and Other (RLQ ileal conduit with yellow urine)
Skin: Warm and Dry
Results
WBC 1.8 10^3/uL (4.8-10.8) L* 11/24/23 12:33
Hgb 7.8 g/dL (13.0-18.0) L 11/24/23 12:33
Hct 23.5 % (39.0-52.0) L 11/24/23 12:33
MCV 95.1 fL (80.0-94.0) H 11/24/23 12:33
Plt Count 61 10^3/uL (130-400) L 11/24/23 12:33
Absolute Neuts (auto) 0.9 10^3/uL (1.4-6.5) L* 11/24/23 12:33
PT 24.4 Sec (11.4-14.6) H 11/24/23 12:33
INR 2.21 11/24/23 12:33
Sodium 137 mmol/L (135-145) 11/24/23 12:33
Potassium 5.1 mmol/L (3.5-5.1) 11/24/23 12:33
Chloride 109 mmol/L (98-107) H 11/24/23 12:33
Carbon Dioxide 18 mmol/L (22-30) L 11/24/23 12:33
BUN 37 mg/dl (9-20) H 11/24/23 12:33
Creatinine 1.6 mg/dL (0.7-1.3) H 11/24/23 12:33
Calcium 8.7 mg/dl (8.4-10.2) 11/24/23 12:33
Total Bilirubin 1.0 mg/dl (0.2-1.3) 11/24/23 12:33
AST 28 U/L (17-59) 11/24/23 12:33
ALT 23 U/L (0-50) 11/24/23 12:33
Alkaline Phosphatase 91 U/L (38-126) 11/24/23 12:33
Diagnostic Image Results:
Prior GI Procedures:
EGD:
Colonoscopy:
Assessment / Plan
-
Summary: 77yo male underwent colonoscopy for mucosal resection of large carpet-like 45mm ascending colon polyp (path tubulovillous with HGD) on November 13. Site was clipped x 5. Began passing black tarry stool with red tint 11/23 and felt
dizzy/lightheaded. Several days prior PCP noted low WBC and referred for Hematology eval. On coumadin for Afib last dose 11/22. Hgb 7.8 (down from 12.1 in July), WBC 1.8, ANC 900, Plt 61.
Impression:
Post polypectomy bleed
Mucosal resection for large ascending colon polyp 11/13
Afib on coumadin
Pancytopenia
Recommendations:
Transfuse PRBC
Hold coumadin. Vit K 10mg PO given in ER
Trend CBC and INR
If bleeding does not stop spontaneously, set up for colonoscopy, further clipping
OK for clears
Hematology has also been consulted for pancytopenia
Will follow
-
-
Thank you for consultation and allowing me to participate in the patient's care. Please call the retail commission sales associate GI physician during the after hours with any questions or concerns.
--- NOTE | 2023-11-24 18:03 | W.PN.UPDATE ---
Update Note
Progress Note Update
I saw and examined the patient.
The PIER MASTER ASSISTANT's note was reviewed and I agree with the note.
Patient is a 77M with PMH of Parox afib on warfarin, DM2, CKDIII, GERD. ho blader cancer s/p resection and urostomy formation, hiatal hernia, lumbar disc herniation came to ER for noticing new melanotic stool today. Patient have underwent colonic
polyp resection on November 13, showing high grade dysplasia. Patient came in to ER for further evaluation, Noted to have low hbg 7.8 down from baseline of 12. also have new neutropenia and worsening thrombocytopenia. Patient was evaluated by PCP and
was pending to see hematology in office. Patient denies any associated fever/abd pain/n/v.
HEENT: No pallor, cyanosis, or jaundice. Throat clear.
NECK: Supple. No JVD.
RESPIRATORY: Lungs clear to auscultation.
CVS: S1, S2 normal. tachycardic. No murmur.
ABDOMEN: Soft, non-tender. No distension. BS+/normal. Ursotomy bag, clear urine.
EXTREMITIES: No peripheral cyanosis or edema.
HOBBER: AOx3. No focal deficits.
GI bleed
s/p polypectomy with APC on November 13
-at risk of bleeding from polypectomy site although complains melena, old blood possibility
-got Vit K 10mg PO by ER physician and 1 u prbc
-GI evaluated patient in ER and recommended monitor on clear liquid diet
-repeat scoping based on clinical course
Pancytopenia
-ANC 0.9 new, plt 60K - lower than baseline > 100k, hbg down as well
-denies h/o of MDS/BM issues in past
-check b12/folate level
-Monitor count and hematology eval, will likely need OP BM biopsy if not improved
IDDM
-as on CL diet, give half dose insulin deguldec of 12U HS and ISS
Urostomy
h/o bladder cancer and resection
-clear urine in bag. patient questioning if has UTI but no clinical signs
-urostomy urine culture to be avoided as likely will have some bacterial growth which does not reflect active UTI
Full code
[2023-11-24 18:55] LABS: Glucose - Point of Care 200 mg/dl (70-99)
[2023-11-24] MEDS: NOVOLOG FLEXPEN-LOW RESISTANCE 2 UNITS SC (19:26)
--- NOTE | 2023-11-24 19:45 | SUR.OPER ---
Pt received from previous shift in bed w/PRBCs transfusing. AAOx3, pleasant. Full physical assessment documented (refer to worklist). Plan of care discussed. Urostomy draining clear yellow, SPD called for adapter to connect to [place] bag. PRBCs
completed with no s/s of reaction, VSS. Tolerated clear tray. Instructed to ring for assist when OOB, verbalizes understanding. Call rafael w/in reach, plan of care ongoing.
[2023-11-24 21:30] LABS: Glucose - Point of Care 270 mg/dl (70-99)
[2023-11-24] MEDS: LANTUS 0.12 UNITS SC (22:25)
[2023-11-24] MEDS: MELATONIN 5 MG PO (22:25)
[2023-11-25] VITALS (11 sets, daily range): BP systolic 103–149; BP diastolic 53–80; PULSE 82; O2SAT 100; BMI 27.9
[2023-11-25 07:34] LABS: Glucose - Point of Care 226 mg/dl (70-99)
--- NOTE | 2023-11-25 07:47 | W.PN.HOSP.TC ---
Today's Communication/Plan
-
see bold
Assessment / Plan
Assessment / Plan
Gen: NAD, AAOx3.
Eyes: EOMI, PERRLA, no scleral icterus.
Neck: supple.
CV: irreg/irreg, +S1/S2, no m/r/g.
Resp: CTAB, no rales, wheezes, or rhonchi.
Abd: +BS, soft, NT, ND
Skin: No rashes.
Neuro: CN 2-12 intact, non-focal.
Psych: Normal mood and affect.
Acute blood loss anemia due to acute GI bleed due to recent polypectomy
-s/p polypectomy with APC on 11/14/23
-got Vit K 10mg PO by ER physician and 1U pRBC
-GI evaluated patient in ER and recommended monitor on clear liquid diet
-repeat scoping based on clinical course
-cont PPI BID
-HB stable but patient remains symptomatic. Transfuse another 1U pRBCs.
Pancytopenia:
-denies h/o of MDS/BM issues in past
-check b12/folate level
-Heme eval
-Heme c/s
-will likely need BMBx
DM2:
-cont Lantus/premeal Novolog/SSI/accuchecks
h/o bladder cancer and resection with urostomy
-clear urine in bag. patient questioning if has UTI but no clinical signs
-urostomy urine culture to be avoided as likely will have some bacterial growth which does not reflect active UTI
FULL/encourage ambulation (no SCDs with plt < 50, no pharmacological DVT prophylaxis with acute blood loss anemia)
Anticipated Discharge: Within 24 hours
Subjective/Interval History
-
Date of Service: November 25, 2023
Pt reports JORGE with ambulation.
Objective Data
-
Labs:
Laboratory Results
07/20/24
07:10
WBC Pending
Hgb Pending
Hct Pending
Plt Count Pending
PT Pending
INR Pending
Sodium Pending
Potassium Pending
Chloride Pending
Carbon Dioxide Pending
BUN Pending
Creatinine Pending
Glucose Pending
Calcium Pending
Total Bilirubin Pending
AST Pending
ALT Pending
Alkaline Phosphatase Pending
Vital Signs:
Vital Signs
Temp Pulse Resp BP Pulse Ox
97.4 F 78 18 116/71 99
11/25/23 03:36 11/25/23 03:36 11/25/23 03:36 11/25/23 03:36 11/25/23 03:36
I&O
11/24/23 11/25/23 11/26/23
06:59 06:59 06:59
Intake Total 730 / 730
Output Total 750 / 750
Balance -
[2023-11-25 07:57] LABS: ALT (SGPT) 19 U/L (0-50); AST (SGOT) 22 U/L (17-59); Albumin 3.4 g/dl (3.5-5.0); Alkaline Phosphatase 83 U/L (38-126); Blood Urea Nitrogen 40 mg/dl (9-20); Calcium 9.1 mg/dl (8.4-10.2); Carbon Dioxide 21 mmol/L (22-30); Chloride 111 mmol/L (98-107); Estimated Creatinine Clearance 38 ml/min; Glucose 209 mg/dl (70-99); Potassium 4.6 mmol/L (3.5-5.1); Sodium 140 mmol/L (135-145); Total Bilirubin 1.3 mg/dl (0.2-1.3); Total Protein 5.7 g/dl (6.3-8.2); eGFR 38.29
[2023-11-25] MEDS: PROTONIX IV 40 MG IV ×2 (08:05→19:46)
[2023-11-25] MEDS: NSS (PRESERVATIVE FREE) 10 ML IV ×2 (08:06→19:46)
[2023-11-25 08:23] LABS: Hematocrit 23.3 % (39.0-52.0); Hemoglobin 7.9 g/dL (13.0-18.0); Mean Corp Hgb Conc. 33.9 g/dL (33.0-37.0); Mean Corpuscular Hgb 31.9 pg (27.0-31.0); Platelet Count 49 10^3/uL (130-400); Red Blood Cell Count 2.48 10^6/uL (4.70-6.10); White Blood Cell Count 1.4 10^3/uL (4.8-10.8)
[2023-11-25 08:29] LABS: Ferritin 78.4 ng/ml (17.9-464.0)
[2023-11-25 08:40] LABS: INR 1.66; PT 19.7 Sec (11.4-14.6)
[2023-11-25 09:01] LABS: Folate 12.9 ng/ml (2.76-20); Vitamin B12 791 pg/ml (239-931)
[2023-11-25 09:19] LABS: % Basophils 1.4 % (0-2); % Eosinophils 2.8 % (0-6); % Immature Granulocytes 1.4 % (0-0.5); % Lymphocytes 44.4 % (20.5-51.1); % Monocytes 6.3 % (1.7-9.3); % Neutrophils 43.7 % (42.2-75.2); Absolute Lymphocytes 0.6 10^3/uL (1.2-3.4); Absolute Monocytes 0.1 10^3/uL (0.1-0.6); Absolute Neutrophils 0.6 10^3/uL (1.4-6.5); Nucleated Red Blood Cells % 2.8 % (-)
--- NOTE | 2023-11-25 10:12 | CON.ONC ---
Impression
Impression
- melena s/p polpectomy
- afib on coumadin
- pancytopenia with neutropenia, lymphopenia, moderate to severe thrombocytopenia
- anemia
- hx of bladder cancer s.p chemoradiation
Plan
Plan
# Pancytopenia
- decline in WBC, platelets first noted slightly in april 2023 with mildly lower counts in July and now more significant cytopenias with ANC < 1000, plts < 100K. Anemia also worse compared to july with drop from 12.1 to 7.9 g/dl however unclear
how much of this is related to active bleed vs. primary bone marrow process.
- pt denies new medications or illnesses to explain cytopenias. B12, folate in normal range.
- check retic count, flow cytometry.
- trend is suggestive for primary bone marrow process. I am scheduled to see him in my office 12/14. Pt chronically on coumadin with reversal at this time with bleed. Therefore, I feel this is opportune time to get BMbx so he does not need to be
bridged on then off then on again. Obtained administrative permission. I will consult IR.
# GIB
- s.p polypectomy 11/13.
- GI consulted. will consider repeat colonoscopy for additional clipping if melena does not improve on its own/with coumadin reversal.
- coumadin reversed with vitamin K. INR 1.66 today.
- hgb stable at 7.9 g/dl. receiving 1 unit pRBCs now with ongoing episodes of melena.
- although plts have dropped to 49K today I feel with stable hgb no indication for plt transfusion at this time. transfuse if drop < 20K or significant bleeding symptoms develop.
Patient History
History of Present Illness
Elijah is a 77 yo M w/ PMHx bladder cancer 2010 s/p chemo radiation and bladder resection with permanent Ileal Conduit (tx'ed at [facility], not aware of chemo received), prostatectomy , Permanent afib on coumadin, HTN, DM, copd/ild who presented
to ED after two episodes of dark tarry stools. He recently underwent colonoscopy outpt on 11/13 at which time he had complicated 45 mm ascending colon polyp removed via mucosal resection followed by APC as well as 3 additional smaller polyps removed.
Hematology is being consulted for pancytopenia. CBC on admission showed WBC 1.8 w/ ANC 900, ALC 700, hgb 7.8 g/dl, plts 61K. all values are decreased compared to July at which time WBC was 4.2, hgb 12.1 and plts 103,000. These more mild cytopenias
in July were new/worse compared to april and during admission with cholecystitis in March he had normal CBC. B12, folate normal. Denies hc of liver disease. Denies new medications over past 6 months. he has outpt appt with hematology on 12/14
regarding these lab values. He is receiving 1 unit pRBCs now. He notes additional dark bowel movement this am however more formed.
Past-Medical/Surgical History
bladder cancer s.p chemoradiation
afib on coumadin
HTN
DM
Patient Medication
�Medication �Instructions �Recorded �Confirmed �Last Taken �Type
acetaminophen 650 mg 650 mg PO Q8HPRN PRN mild pain 03/15/23 11/24/23 11/20/23 History
tablet,extended release
insulin aspart U-100 100 unit/mL 5 units SC BID@0800,1200 Diabetes 03/15/23 11/24/23 11/13/23 18:00 History
(3 mL) subcutaneous pen (Novolog
FlexPen U-100 Insulin aspart)
insulin aspart U-100 100 unit/mL 7 unit SC QPM Diabetes 03/15/23 11/24/23 11/13/23 18:00 History
(3 mL) subcutaneous pen (Novolog
FlexPen U-100 Insulin aspart)
warfarin 5 mg tablet 5 mg PO SUMOTUWE@1900 Blood Clot 03/15/23 11/24/23 11/23/23 History
Prevention/Tx
warfarin 5 mg tablet (Jantoven) 7.5 mg PO THFRSA@1900 Blood clot 03/15/23 11/24/23 11/18/23 History
prevention/tx
omeprazole 40 mg capsule,delayed 40 mg PO DAILY Gastrointestinal 05/31/23 11/24/23 11/24/23 History
release Issue
melatonin 5 mg tablet 5 mg PO HS sleep 06/05/23 11/24/23 11/23/23 History
insulin degludec 100 unit/mL (3 23 unit SC HS Diabetes 11/24/23 11/24/23 11/23/23 History
mL) subcutaneous pen
metoprolol succinate 25 mg 25 mg PO DAILY Heart 11/24/23 11/24/23 11/24/23 History
tablet,extended release 24 hr Disease/Condition
(Toprol XL)
polyethylene glycol 3350 17 gram 17 g PO DAILYPRN PRN constipation 11/24/23 11/24/23 11/22/23 History
oral powder packet (Miralax)
Active Medications
Generic Name Dose Route Start Last Admin
Trade Name Freq PRN Reason Stop Dose Admin
Acetaminophen 650 mg 11/24/23 18:56
Acetaminophen 325 Mg Tablet PO 12/22/23 18:55
Q4HPRN PRN
mild pain
Dextrose 12.5 grams 11/24/23 17:01
Dextrose 50% (0.5 Grams/Ml) 50 Ml Syringe IV 12/22/23 17:00
[id number] PRN
hypoglycemia
Protocol
Glucagon 1 mg 11/24/23 17:01
Glucagon 1 Mg Vial IM 12/22/23 17:00
PRN PRN
hypoglycemia
Protocol
Insulin Glargine 15 units/ 0.15 mls @ 0 mls/hr 11/25/23 22:00
Device SC 12/22/23 21:59
HS LYSSA
As Directed
Insulin Aspart 3 units 11/25/23 11:30
Insulin Aspart (100 Units/Ml) 3 Ml Flexpen SC 08/17/24 11:29
AC LYSSA
Insulin Aspart 0 units 11/25/23 11:30
Insulin Aspart Moderate Resistance 300 Units/3 Ml Pen.Injctr SC 12/23/23 11:29
AC LYSSA
Protocol
Melatonin 5 mg 11/24/23 22:00 11/24/23 22:25
Melatonin 5 Mg Tablet PO 12/22/23 21:59 5 mg
HS LYSSA Administration
Pantoprazole Sodium 40 mg 11/25/23 08:00 11/25/23 08:05
Pantoprazole Sodium 40 Mg/10 Ml Vial IV 12/23/23 07:59 40 mg
BID LYSSA Administration
Sodium Chloride 0 flush 11/24/23 18:00
Sodium Chloride 0.9% (Flush) Syringe IV 12/22/23 17:59
PER PROTOCOL LYSSA
Sodium Chloride 10 ml 11/25/23 08:00 11/25/23 08:06
Sodium Chloride 0.9% (Preservative Free) 10 Ml Vial IV 12/23/23 07:59 10 ml
BID LYSSA Administration
Review of Systems
-
History Source: Patient
Constitutional: Reports Weight Loss (~ 15 lbs over 4 months) and Fatigue; Denies Fever
EENT: Denies Mouth Swelling
Respiratory: Denies Cough or Trouble Breathing
Cardiac: Denies Chest Pain
GI: Reports Black Stools; Denies Abdominal Pain, Hemetemesis or Bloated
Skin: Denies Rash
Neuro: Denies Lightheadedness
Hematologic/Lymphatic: Denies Swollen Glands, Bruising or Blood Clots
Physical Exam
-
General: Well Developed, Well Nourished and No Apparent Distress
HEENT: Negative Jaundice
Pulmonary: Clear
GI: Soft; Negative Distended
Musculoskeletal: No Edema
Neurology: Non Focal
Hematologic / Lymphatic: No Lymphadenopathy and No Petechiae
Labs
Lab Results
WBC 1.4 10^3/uL (4.8-10.8) L* 07/20/24 07:10
RBC 2.48 10^6/uL (4.70-6.10) L 11/25/23 07:10
Hgb 7.9 g/dL (13.0-18.0) L 11/25/23 07:10
Hct 23.3 % (39.0-52.0) L 11/25/23 07:10
MCV 94.0 fL (80.0-94.0) 11/25/23 07:10
MCH 31.9 pg (27.0-31.0) H 11/25/23 07:10
MCHC 33.9 g/dL (33.0-37.0) 11/25/23 07:10
RDW 18.0 % (11.5-14.5) H 11/25/23 07:10
Plt Count 49 10^3/uL (130-400) L 11/25/23 07:10
MPV 12.0 fL (7.4-10.4) H 11/25/23 07:10
Abs Immat Gran (auto) 0.0 10^3/uL (0-0.05) 11/25/23 07:10
Absolute Neuts (auto) 0.6 10^3/uL (1.4-6.5) L* 11/25/23 07:10
Absolute Lymphs (auto) 0.6 10^3/uL (1.2-3.4) L 11/25/23 07:10
Absolute Monos (auto) 0.1 10^3/uL (0.1-0.6) 11/25/23 07:10
Absolute Eos (auto) 0.0 10^3/uL (0-0.7) 11/25/23 07:10
Absolute Basos (auto) 0.0 10^3/uL (0-0.2) 11/25/23 07:10
Immature Gran % 1.4 % (0-0.5) H 11/25/23 07:10
Neutrophils % 43.7 % (42.2-75.2) 11/25/23 07:10
Lymphocytes % 44.4 % (20.5-51.1) 11/25/23 07:10
Monocytes % 6.3 % (1.7-9.3) 11/25/23 07:10
Eosinophils % 2.8 % (0-6) 11/25/23 07:10
Basophils % 1.4 % (0-2) 11/25/23 07:10
Creatinine 1.8 mg/dL (0.7-1.3) H 11/25/23 07:10
Vital Signs
Vital Signs
Temp Pulse Resp BP Pulse Ox
97.5 F 89 16 124/77 100
11/25/23 10:09 11/25/23 10:09 11/25/23 10:09 11/25/23 10:09 11/25/23 07:15
[2023-11-25 10:41] LABS: Glycohemoglobin (HgbA1c) 6.3 % (4.0-5.6)
--- NOTE | 2023-11-25 10:55 | CM ---
Initial assessment completed with patient who lives with his in a trailer with 1 step to enter. [employer] was independent and drove. History with [facility] and [place] [facility]. No psychiatric hospitalizations. [facility]acy is [facility] [place] and PCP is
Raphael Lam. Anticipate no needs at discharge.
[2023-11-25 10:59] LABS: Glucose - Point of Care 300 mg/dl (70-99)
[2023-11-25 11:12] LABS: Reticulocyte Count 2.4 % (0.4-2.8)
--- NOTE | 2023-11-25 11:32 | W.PN.GI.CBS2 ---
Today's Communication / Plan
-
Getting another unit PRBC for Hgb 7.9 (after getting 1 unit PRBC yesterday for Hgb 7.8)
Bleeding seems to be subsiding. Can hold off on repeat colonoscopy
INR down to 1.66. Cont to hold coumadin
Hematology to see pt for pancytopenia. Plt 49, WBC 1.4, ANC 600.
Keep on clears for now. Advance if he continues to remain stable
Assessment / Plan
-
Summary: 77yo male underwent colonoscopy for mucosal resection of large carpet-like 45mm ascending colon polyp (path tubulovillous with HGD) on November 13. Site was clipped x 5. Began passing black tarry stool with red tint 11/23 and felt
dizzy/lightheaded. Several days prior PCP noted low WBC and referred for Hematology eval. On coumadin for Afib last dose 11/22. Hgb 7.8 (down from 12.1 in July), WBC 1.8, ANC 900, Plt 61.
11/23 PRBC 1 unit
Impression:
Post polypectomy bleed
Mucosal resection for large ascending colon polyp 11/13
Afib on coumadin
Pancytopenia
Subjective
Subjective
Date of Service: November 25, 2023
No acute complaints. BM more formed, dark with some red on wiping.
Objective
Data Reviewed
Laboratory Data:
Laboratory Results
11/25/23 07:10
11/25/23 07:10
Laboratory Results
PT 19.7 Sec (11.4-14.6) H 11/25/23 07:10
INR 1.66 11/25/23 07:10
Total Bilirubin 1.3 mg/dl (0.2-1.3) 11/25/23 07:10
AST 22 U/L (17-59) 11/25/23 07:10
ALT 19 U/L (0-50) 11/25/23 07:10
Alkaline Phosphatase 83 U/L (38-126) 11/25/23 07:10
Vital Signs and I&O:
Vital Signs
Temp Pulse Resp BP Pulse Ox
97.3 F 90 18 113/58 100
11/25/23 10:29 11/25/23 10:29 11/25/23 10:29 11/25/23 10:29 11/25/23 07:51
I&O
11/24/23 11/25/23 11/26/23
06:59 06:59 06:59
Intake Total 730 / 730 0 / 0
Output Total 750 / 750
Balance - / 20 0 / 0
Physical Exam
Physical Exam
GI: Soft, Non Distended and Non Tender
[2023-11-25] MEDS: NOVOLOG FLEXPEN-MODERATE RESISTANCE 7 UNITS SC (11:35)
[2023-11-25] MEDS: NOVOLOG FLEXPEN 3 UNITS SC ×2 (11:35→17:25)
[2023-11-25 16:50] LABS: Glucose - Point of Care 149 mg/dl (70-99)
[2023-11-25] MEDS: NOVOLOG FLEXPEN-MODERATE RESISTANCE SC (17:25)
[2023-11-25 21:24] LABS: Glucose - Point of Care 188 mg/dl (70-99)
[2023-11-25] MEDS: MELATONIN 5 MG PO (21:59)
[2023-11-25] MEDS: LANTUS 0.15 UNITS SC (21:59)
[2023-11-26] VITALS (7 sets, daily range): BP systolic 129–171; BP diastolic 61–96; PULSE 91–103; O2SAT 100; BMI 27.6
[2023-11-26 07:11] LABS: ALT (SGPT) 17 U/L (0-50); AST (SGOT) 20 U/L (17-59); Albumin 3.3 g/dl (3.5-5.0); Alkaline Phosphatase 80 U/L (38-126); Blood Urea Nitrogen 34 mg/dl (9-20); Calcium 8.8 mg/dl (8.4-10.2); Carbon Dioxide 22 mmol/L (22-30); Chloride 111 mmol/L (98-107); Estimated Creatinine Clearance 42 ml/min; Glucose 158 mg/dl (70-99); Potassium 4.4 mmol/L (3.5-5.1); Sodium 139 mmol/L (135-145); Total Bilirubin 1.3 mg/dl (0.2-1.3); Total Protein 5.6 g/dl (6.3-8.2)
[2023-11-26 07:45] LABS: Glucose - Point of Care 204 mg/dl (70-99)
--- NOTE | 2023-11-26 07:52 | W.PN.HOSP.TC ---
Today's Communication/Plan
-
see bold
Assessment / Plan
Assessment / Plan
Gen: NAD, AAOx3.
Eyes: EOMI, PERRLA, no scleral icterus.
Neck: supple.
CV: remains irreg/irreg, +S1/S2, no m/r/g.
Resp: CTAB, no rales, wheezes, or rhonchi.
Abd: remains +BS, soft, NT, ND
Skin: No rashes.
Neuro: remains CN 2-12 intact, non-focal.
Psych: Normal mood and affect.
Acute blood loss anemia due to acute GI bleed due to recent polypectomy:
-s/p polypectomy with APC on 11/14/23
-got Vit K 10mg PO by ER physician and 1U pRBC
-GI evaluated patient in ER and recommended monitor on clear liquid diet
-will d/w GI the need for repeat scoping today
-cont PPI BID
-HB stable s/p 2U pRBCs.
Pancytopenia:
-denies h/o of MDS/BM issues in past
-B12/folate level normal
-appreciate heme, for inpt BMBx as pt's AC on hold (admin approved)
DM2:
-cont Lantus/premeal Novolog/SSI/accuchecks
h/o bladder cancer and resection with urostomy
-clear urine in bag. patient questioning if has UTI but no clinical signs
-urostomy urine culture to be avoided as likely will have some bacterial growth which does not reflect active UTI
FULL/encourage ambulation (no SCDs with plt < 50, no pharmacological DVT prophylaxis with acute blood loss anemia)
Anticipated Discharge: 24 - 48 hours
Subjective/Interval History
-
Date of Service: November 26, 2023
Dark stool with a streak of blood on toilet paper this AM. [place] lightheaded when he got up.
Objective Data
-
Labs:
Laboratory Results
11/26/23
05:58
WBC Pending
Hgb Pending
Hct Pending
Plt Count Pending
Sodium 139
Potassium 4.4
Chloride 111 H
Carbon Dioxide 22
BUN 34 H
Creatinine 1.6 H
Glucose 158 H
Calcium 8.8
Total Bilirubin 1.3
AST 20
ALT 17
Alkaline Phosphatase 80
Vital Signs:
Vital Signs
Temp Pulse Resp BP Pulse Ox
97.6 F 87 18 149/72 99
11/26/23 03:34 11/26/23 03:34 11/26/23 03:34 11/26/23 03:34 11/26/23 03:34
I&O
11/25/23 11/26/23 11/27/23
06:59 06:59 06:59
Intake Total 730 / 730 1690 / 1690
Output Total 750 / 750 1600 / 1600
Balance -20 / -20 90 / 90
[2023-11-26 08:31] LABS: % Basophils 1.4 % (0-2); % Eosinophils 4.3 % (0-6); % Immature Granulocytes 0.7 % (0-0.5); % Lymphocytes 56.8 % (20.5-51.1); % Monocytes 5.8 % (1.7-9.3); Absolute Eosinophils 0.1 10^3/uL (0-0.7); Absolute Lymphocytes 0.8 10^3/uL (1.2-3.4); Absolute Monocytes 0.1 10^3/uL (0.1-0.6); Absolute Neutrophils 0.4 10^3/uL (1.4-6.5); Hematocrit 24.1 % (39.0-52.0); Hemoglobin 8.3 g/dL (13.0-18.0); Mean Corp Hgb Conc. 34.4 g/dL (33.0-37.0); Mean Corpuscular Hgb 31.9 pg (27.0-31.0); Mean Corpuscular Volume 92.7 fL (80.0-94.0); Nucleated Red Blood Cells % 0 % (-); Platelet Count 44 10^3/uL (130-400); Red Cell Dist. Width 17.8 % (11.5-14.5); White Blood Cell Count 1.4 10^3/uL (4.8-10.8)
[2023-11-26] MEDS: NOVOLOG FLEXPEN 3 UNITS SC ×3 (08:50→17:15)
[2023-11-26] MEDS: NOVOLOG FLEXPEN-MODERATE RESISTANCE 3 UNITS SC ×2 (08:50→17:15)
[2023-11-26] MEDS: NSS (PRESERVATIVE FREE) 10 ML IV ×2 (08:51→21:04)
[2023-11-26] MEDS: PROTONIX IV 40 MG IV ×2 (08:51→21:04)
--- NOTE | 2023-11-26 11:16 | W.PN.ONC2 ---
Today's Communication / Plan
-
- continue to monitor CBC
- continue to hold AC with slowing improving bleeding symptoms and plan for BMBx inpt.
- neutropenic precautions.
Impression
Impression
- melena s/p polpectomy
- afib on coumadin
- pancytopenia with neutropenia, lymphopenia, moderate to severe thrombocytopenia
- anemia
- hx of bladder cancer s.p chemoradiation
Plan
Plan
# Pancytopenia
- decline in WBC, platelets first noted slightly in april 2023 with mildly lower counts in July and now more significant cytopenias with ANC < 1000, plts < 100K. Anemia also worse compared to july with drop from 12.1 to 7.9 g/dl however unclear
how much of this is related to active bleed vs. primary bone marrow process.
- pt denies new medications or illnesses to explain cytopenias. B12, folate in normal range. retic count inappropriately normal in the setting of active bleed favoring suppressed BM response.
- flow cytometry pending.
- trend is suggestive for primary bone marrow process. I am scheduled to see him in my office 12/14. Pt chronically on coumadin with reversal at this time with bleed. Therefore, I feel this is opportune time to get BMbx so he does not need to be
bridged on then off then on again. Obtained administrative permission.Consult placed to IR, hopefully this can be completed monday.
# GIB
- s.p polypectomy 11/13.
- GI consulted. will consider repeat colonoscopy for additional clipping if melena does not improve on its own/with coumadin reversal.
- coumadin reversed with vitamin K. INR 1.66 on 11/24.
- hgb stable at 8.3 g/dl today after 1 unit prbCs yesterday. 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
- although plts have dropped to 44K today I feel with stable hgb no indication for plt transfusion at this time. transfuse if drop < 20K or significant bleeding symptoms develop.
- if cleared by GI to resume coumadin then I feel this is ok if plts remain in this range or better. No need for bridging for afib ppx indication.
Subjective/Objective
Chief Complaint
pancytopenia
Subjective
pt noted light stool this am however followed by slightly darker, looser BM. Denies fevers, chills, abdominal pain.
Vital Signs:
Vital Signs
Temp Pulse Resp BP Pulse Ox
97.8 F 83 18 139/61 100
11/26/23 07:44 11/26/23 07:44 11/26/23 07:44 11/26/23 07:44 11/26/23 07:44
Lab Results:
Laboratory Data
WBC 1.4 10^3/uL (4.8-10.8) L* 11/26/23 05:58
Hgb 8.3 g/dL (13.0-18.0) L 11/26/23 05:58
Plt Count 44 10^3/uL (130-400) L 11/26/23 05:58
PT 19.7 Sec (11.4-14.6) H 11/25/23 07:10
INR 1.66 11/25/23 07:10
eGFR 44.10 11/26/23 05:58
Physical Exam
HEENT: No Jaundice
Pulmonary: Clear
GI: Soft; No Distended
Extremities: No Edema
Neuro: Non Focal
Review of Systems
Review of Systems
Constitutional: Reports Fatigue; Denies Fever
Respiratory: Denies Dyspnea
Gastrointestinal: Reports Other (mild improvement in dark stools )
Genitourinary: Denies Hematuria
Orders
Orders
Orders From Last 24 Hours
11/25/23 10:58
Leukemia/Lymphoma Phenotyping [S] Routine
Reticulocyte Count Routine
11/25/23 12:23
Consult Interventional Radiology [IRAD CONSULT] Routine
--- NOTE | 2023-11-26 11:40 | W.PN.GI.CBS2 ---
Today's Communication / Plan
-
Bleeding has stopped. No need for repeat colonoscopy
Low residue diet
Plans for BMBx while off coumadin noted
Will sign off at this point. Please call back if needed
Assessment / Plan
-
Summary: 77yo male underwent colonoscopy for mucosal resection of large carpet-like 45mm ascending colon polyp (path tubulovillous with HGD) on November 13. Site was clipped x 5. Began passing black tarry stool with red tint 11/23 and felt
dizzy/lightheaded. Several days prior PCP noted low WBC and referred for Hematology eval. On coumadin for Afib last dose 11/22. Hgb 7.8 (down from 12.1 in July), WBC 1.8, ANC 900, Plt 61.
11/23 PRBC 1 unit
Impression:
Post polypectomy bleed
Mucosal resection for large ascending colon polyp 11/13
Afib on coumadin
Pancytopenia
Subjective
Subjective
Date of Service: November 26, 2023
BM more formed, brown. Some blood with wiping
Objective
Data Reviewed
Laboratory Data:
Laboratory Results
11/26/23 05:58
11/26/23 05:58
Laboratory Results
PT 19.7 Sec (11.4-14.6) H 11/25/23 07:10
INR 1.66 11/25/23 07:10
Total Bilirubin 1.3 mg/dl (0.2-1.3) 11/26/23 05:58
AST 20 U/L (17-59) 11/26/23 05:58
ALT 17 U/L (0-50) 11/26/23 05:58
Alkaline Phosphatase 80 U/L (38-126) 11/26/23 05:58
Vital Signs and I&O:
Vital Signs
Temp Pulse Resp BP Pulse Ox
97.8 F 87 18 146/77 99
07/21/24 11:22 11/26/23 11:22 11/26/23 11:22 11/26/23 11:22 11/26/23 11:22
I&O
11/25/23 11/26/23 11/27/23
06:59 06:59 06:59
Intake Total 730 / 730 1690 / 1690
Output Total 750 / 750 1600 / 1600
Balance -20 / -20 90 / 90
Physical Exam
Physical Exam
GI: Soft and Non Distended
[2023-11-26 12:04] LABS: Glucose - Point of Care 164 mg/dl (70-99)
[2023-11-26] MEDS: NOVOLOG FLEXPEN-MODERATE RESISTANCE 1 UNITS SC (12:59)
[2023-11-26] MEDS: TOPROL XL 25 MG PO (16:51)
[2023-11-26 16:58] LABS: Glucose - Point of Care 224 mg/dl (70-99)
--- NOTE | 2023-11-26 18:13 | PTCARENOTE ---
pt had some tachycardia with activity, while walking to the bathroom, no SOB or CP, BP charted, had a formed stool with some blood when wiping, MD and GI made aware. Neutropinic precautions.
[2023-11-26 21:29] LABS: Glucose - Point of Care 202 mg/dl (70-99)
[2023-11-26] MEDS: LANTUS 0.15 UNITS SC (21:41)
[2023-11-26] MEDS: MELATONIN 5 MG PO (21:41)
[2023-11-27 03:28] VITALS: BP 104/70
[2023-11-27 06:00] VITALS: BMI 27.7
[2023-11-27 06:20] LABS: ALT (SGPT) 15 U/L (0-50); AST (SGOT) 19 U/L (17-59); Albumin 3.4 g/dl (3.5-5.0); Alkaline Phosphatase 76 U/L (38-126); Blood Urea Nitrogen 38 mg/dl (9-20); Calcium 8.9 mg/dl (8.4-10.2); Carbon Dioxide 23 mmol/L (22-30); Chloride 110 mmol/L (98-107); Estimated Creatinine Clearance 36 ml/min; Glucose 184 mg/dl (70-99); Potassium 4.3 mmol/L (3.5-5.1); Sodium 140 mmol/L (135-145); Total Bilirubin 1.1 mg/dl (0.2-1.3); Total Protein 5.8 g/dl (6.3-8.2); eGFR 35.88
[2023-11-27 06:32] LABS: Hematocrit 25.3 % (39.0-52.0); Hemoglobin 8.6 g/dL (13.0-18.0); Mean Corpuscular Hgb 32.5 pg (27.0-31.0); Mean Corpuscular Volume 95.5 fL (80.0-94.0); Red Blood Cell Count 2.65 10^6/uL (4.70-6.10); White Blood Cell Count 1.6 10^3/uL (4.8-10.8)
[2023-11-27 06:33] LABS: Mean Platelet Volume 12.6 fL (7.4-10.4); Platelet Count 48 10^3/uL (130-400); Red Cell Dist. Width 17.8 % (11.5-14.5)
[2023-11-27 07:15] VITALS: BP 131/71
[2023-11-27 07:28] LABS: Glucose - Point of Care 208 mg/dl (70-99)
[2023-11-27 07:30] VITALS: BP 124/87
[2023-11-27] MEDS: TOPROL XL 25 MG PO (08:02)
[2023-11-27] MEDS: NSS (PRESERVATIVE FREE) 10 ML IV (08:03)
[2023-11-27] MEDS: NOVOLOG FLEXPEN 3 UNITS SC ×3 (08:03→17:04)
[2023-11-27] MEDS: PROTONIX IV 40 MG IV (08:03)
[2023-11-27] MEDS: NOVOLOG FLEXPEN-MODERATE RESISTANCE 3 UNITS SC ×3 (08:04→17:04)
[2023-11-27 08:16] LABS: % Basophils 1.8 % (0-2); % Eosinophils 4.3 % (0-6); % Immature Granulocytes 0.6 % (0-0.5); % Lymphocytes 52.8 % (20.5-51.1); % Monocytes 9.2 % (1.7-9.3); % Neutrophils 31.3 % (42.2-75.2); Absolute Eosinophils 0.1 10^3/uL (0-0.7); Absolute Lymphocytes 0.9 10^3/uL (1.2-3.4); Absolute Monocytes 0.2 10^3/uL (0.1-0.6); Absolute Neutrophils 0.5 10^3/uL (1.4-6.5); Nucleated Red Blood Cells % 1.8 % (-)
--- NOTE | 2023-11-27 09:19 | W.PN.HOSP.TC ---
Today's Communication/Plan
-
d/c home post BM biopsy
Assessment / Plan
Assessment / Plan
Acute blood loss anemia due to acute GI bleed due to recent polypectomy:
-s/p polypectomy with APC on 11/14/23
-got Vit K 10mg PO by ER physician and 1U pRBC
-GI evaluated patient in ER and recommended monitor on clear liquid diet
-diet advanced to LR diet,
-no more bleed and no indication for c-scope this admission
Pancytopenia:
-denies h/o of MDS/BM issues in past
-B12/folate level normal
-getting BM biopsy inpatient today
-f/u with dr Cruz in office post discharge.
DM2:
-cont Lantus/premeal NovoLog/SSI/AccuCheck
h/o bladder cancer and resection with urostomy
-clear urine in bag. patient questioning if has UTI but no clinical signs
-urostomy urine culture to be avoided as likely will have some bacterial growth which does not reflect active UTI
Parox afib
-no need for bridging back and patient will be started back on warfarin at discharge
CKDIIIB
-cr baseline on 1.3 in apr 29.
-worsening CKD? no clear reason VERNA
-f/u BMP in 1 week
FULL/encourage ambulation (no SCDs with plt < 50, no pharmacological DVT prophylaxis with acute blood loss anemia)
Anticipated Discharge: Today
Subjective/Interval History
-
Date of Service: November 27, 2023
Denies having any bloody stool
Small pellet sized stool in the morning, does not feel constipated
Objective Data
-
Labs:
Laboratory Results
11/27/23
04:36
WBC 1.6 L*
Hgb 8.6 L
Hct 25.3 L
Plt Count 48 L
Sodium 140
Potassium 4.3
Chloride 110 H
Carbon Dioxide 23
BUN 38 H
Creatinine 1.9 H
Glucose 184 H
Calcium 8.9
Total Bilirubin 1.1
AST 19
ALT 15
Alkaline Phosphatase 76
Vital Signs:
Vital Signs
Temp Pulse Resp BP Pulse Ox
97.0 F 128 20 124/87 93
11/27/23 07:30 11/27/23 08:02 11/27/23 07:30 11/27/23 08:02 11/27/23 07:30
I&O
11/26/23 11/27/23 11/28/23
06:59 06:59 06:59
Intake Total 1690 / 1690 900 / 900
Output Total 1600 / 1600 1300 / 1300
Balance 90 / 90 -400 / -400
Review of Systems
-
Respiratory: Reports No Symptoms
Cardiac: Reports No Symptoms
Abdomen/GI: Denies Abdominal Pain or Nausea
Physical Exam
-
General: No Apparent Distress
HEENT: Normocephalic and Atraumatic
Respiratory: Clear to Auscultation
Cardiac: Regular Rhythm and S1/S2; Negative Murmur
GI: Soft, Nontender and Nondistended
Neuro: AO x 3
Psych: Calm
[2023-11-27 10:15] VITALS: BP 118/55; BP_SYST 63
--- NOTE | 2023-11-27 10:18 | PN.CDI ---
CDI
- -
CDI:
Physician Documentation Request
Admit Date: 11/24/23 17:11
Dear Doctor Hilario,
Patient admitted with acute GI bleed.
H&P, 'GI bleed is s/p colonoscopy 11/13 with benign polypectomy and argon plasma coag, clips placed and on Coumadin.... HOLD Coumadin.
11/26 PN, 'Acute blood loss anemia....'
Patient's home medication's include Warfarin.
Please clarify the likely relationship between these conditions:
Yes, GI bleed/ ABLA is associated with/ enhanced by Coumadin
No, GI bleed/ ABLA is not associated with/ enhanced by Coumadin but it is due to ___. (Please specify)
Unable to determine
Use of terms such as suspected, likely, concern for, or probable (associated with a specific diagnosis that is being evaluated, monitored, or treated as if it exists) are acceptable and can be coded in the inpatient setting, when documented at the
time of discharge.
Thank you,
Bren MATTSON,RN,CCDS
CDI Specialist
Available via tiger text
Please use your independent medical judgment in providing your response.
[2023-11-27 11:50] VITALS: BP 134/70
[2023-11-27 13:01] LABS: Number Of Markers 29 markers; Source Blood
[2023-11-27 13:04] LABS: Glucose - Point of Care 208 mg/dl (70-99)
[2023-11-27 15:10] VITALS: BP 129/59
--- NOTE | 2023-11-27 15:31 | CM ---
GI Bleed, Low residue diet, Bone marrow BX today. Discharge Plan of Care: Therapy recommendations for HH PT/OT. Will also schedule VN with [facility] which he had in past and is preference. Referral sent.
--- NOTE | 2023-11-27 16:47 | CM ---
Patient has been medically cleared for discharge to home with [facility] VN, PT/OT services. Patient has arranged for transport home.
[2023-11-27 16:55] LABS: Glucose - Point of Care 236 mg/dl (70-99)
--- NOTE | 2023-11-29 08:01 | W.DCSUMMARY ---
Discharge Summary
Discharge Data
Date of Admission: 11/24/23
Date of Discharge: 11/27/23
-
Pending Results: No
Hospital Course
Discharging Physician : Dr Sukhjinder Rich
Disposition : Home
Primary care physician : Dr Erik Lam
Principal Discharge diagnosis :
Acute blood loss anemia from post polypectomy bleed
Pancytopenia
Chronic Discharge diagnosis :
Type 2 diabetes mellitus
History of bladder cancer s/p resection with urostomy
Paroxysmal Atrial fibrillation
Chronic kidney disease stage IIIB
Hospital Course :
Patient is a 77-year-old male with above-mentioned past medical history came to ER for having new onset of black stool. Patient had some associated shortness of breath no other abdominal complaints. Patient had colonoscopy and polyp proctotomy
approximately 10 days before this ER visit. Patient on warfarin with new concern of GI bleed post polypectomy, patient was given vitamin K in ER to reverse INR. Patient also required to be given 1 unit of blood transfusion. GI involved in care
and recommended patient to be monitored in hospital. No further bleeding episode happened in the hospital and patient was able to be restarted back on low residue diet.
Incidentally patient was also noted to be having worsening pancytopenia. Patient primary care physician in process of having patient seen by hematology in office. Hematology was involved in care who recommended admission bone marrow biopsy as
patient was already off of warfarin. Flow cytometry was collected as well. Patient was discharged after bone marrow biopsy and result of flow cytometry/bone marrow biopsy is pending at discharge. Patient is planned to follow-up with hematology in
office in 1 week.
Patient was discharged home.
Important imaging findings :
None
Procedure findings :
None
Discharge Plan
-
Patient Disposition: Home with Home Care
Discharge Diagnosis/Procedures: Gi bleed, Pancytopenia
Condition: Fair
Diet: Low Residue
Activity: As tolerated
Driving Restrictions: As prior to admission
Bathing Restrictions: OK to Shower
Referrals:
rIam Cruz DO [Active] - in one to two weeks
Raphael Lam MD [Family Provider] - in one week
Prescriptions:
Continued
acetaminophen 650 mg Tablet Extended Release
650 mg PO Q8HPRN PRN (Reason: mild pain)
warfarin 5 mg tablet
5 mg PO SUMOTUWE@1900
insulin aspart U-100 [Novolog FlexPen U-100 Insulin] 100 unit/mL (3 mL) Insulin Pen
7 unit SC QPM
warfarin [Jantoven] 5 MG tablet
7.5 mg PO THFRSA@1900
insulin aspart U-100 [Novolog FlexPen U-100 Insulin] 300 UNITS/3 ML insulin pen
5 units SC BID@0800,1200
omeprazole 40 mg Capsule,Delayed Release(Dr/Ec)
40 mg PO DAILY
melatonin 5 mg Tablet
5 mg PO HS
polyethylene glycol 3350 [Miralax] 17 gram Powder In Packet
17 g PO DAILYPRN PRN (Reason: constipation)
metoprolol succinate [Toprol XL] 25 mg Tablet Extended Release 24 Hr
25 mg PO DAILY
insulin degludec 100 unit/mL (3 mL) Insulin Pen
23 unit SC HS
Discharge Orders:
Discharge Patient (As Directed); Ordered 11/27/23
Ordered By: Sukhjinder Rich
Discharge Date and Time
Discharge Date/Time: 11/27/23 18:40
Print Language: EGYPTIAN
== END 2023-11-27 18:40 | disposition home health service (06) | DRG 920 ==
LOC: 2 NORTH 17:11
PROVIDERS: Clinical Nurse Specialist Family Health; Emergency Medicine; Physician Assistant; ADMITTING PHYSICIAN Hospitalist; CONSULT PHYSICIAN Internal Medicine Hematology & Oncology; CONSULT PHYSICIAN Specialist; EMERGENCY PHYSICIAN Emergency Medicine; FAMILY PHYSICIAN Internal Medicine
PROC: 30233N1 Transfusion of Nonautologous Red Blood Cells into Peripheral Vein, Percutaneous Approach (ICD-10-PCS; 2023-11-24)
DX: K91.840 Postprocedural hemorrhage of a digestive system organ or structure following a digestive system procedure (principal); D61.818 Other pancytopenia; D62 Acute posthemorrhagic anemia; I48.21 Permanent atrial fibrillation; Y83.8 Other surgical procedures as the cause of abnormal reaction of the patient, or of later complication, without mention of misadventure at the time of the procedure; J44.9 Chronic obstructive pulmonary disease, unspecified; N18.32 Chronic kidney disease, stage 3b; Z85.51 Personal history of malignant neoplasm of bladder
CPT/HCPCS: 88305; 88311; 88312; 36430; 38222; 77012; 80053; 82607; 82728; 82746; 82962; 83036; 85025; 85045; 85610; 86850; 86900; 86901; 86920; 87070; 88313; 88341; 88342; 93005; 93306; 96374; 97116; 97162; 97166; 99285; P9016

== ENCOUNTER → 2023-12-04 10:37 | Outpatient (REF) | payer MEDICARE, OTHER, SELFPAY | LOC: RAD 10:37 | PROVIDERS: ATTENDING PHYSICIAN Internal Medicine Gastroenterology; FAMILY PHYSICIAN Internal Medicine | DX: K59.00 Constipation, unspecified (principal) | CPT/HCPCS: 74019 ==

== ENCOUNTER → 2023-12-05 14:15 | Outpatient (REF) | payer MEDICARE, OTHER, SELFPAY ==
[2023-12-05 16:10] LABS: Hematocrit 26.9 % (39.0-52.0); Hemoglobin 8.8 g/dL (13.0-18.0); Mean Corp Hgb Conc. 32.7 g/dL (33.0-37.0); Mean Corpuscular Hgb 31.5 pg (27.0-31.0); Mean Corpuscular Volume 96.4 fL (80.0-94.0); Platelet Count 62 10^3/uL (130-400); Red Blood Cell Count 2.79 10^6/uL (4.70-6.10); Red Cell Dist. Width 18.3 % (11.5-14.5); White Blood Cell Count 1.6 10^3/uL (4.8-10.8)
[2023-12-05 17:04] LABS: % Basophils 1.3 % (0-2); % Eosinophils 4.4 % (0-6); % Immature Granulocytes 1.3 % (0-0.5); % Monocytes 7.5 % (1.7-9.3); % Neutrophils 29.5 % (42.2-75.2); Absolute Eosinophils 0.1 10^3/uL (0-0.7); Absolute Lymphocytes 0.9 10^3/uL (1.2-3.4); Absolute Monocytes 0.1 10^3/uL (0.1-0.6); Absolute Neutrophils 0.5 10^3/uL (1.4-6.5); Nucleated Red Blood Cells % 3.1 % (-)
== END ==
LOC: REG 14:15
PROVIDERS: ATTENDING PHYSICIAN Nurse Practitioner Family; FAMILY PHYSICIAN Internal Medicine
DX: R79.9 Abnormal finding of blood chemistry, unspecified (principal); R53.83 Other fatigue; D64.9 Anemia, unspecified; R53.1 Weakness; R06.00 Dyspnea, unspecified
CPT/HCPCS: 36415; 85025; 86850; 86900; 86901

== ENCOUNTER → 2023-12-18 10:27 | Outpatient (REF) | payer MEDICARE, OTHER, SELFPAY ==
[2023-12-18 13:00] LABS: ALT (SGPT) 14 U/L (0-50); AST (SGOT) 22 U/L (17-59); Albumin 4.3 g/dl (3.5-5.0); Alkaline Phosphatase 94 U/L (38-126); Blood Urea Nitrogen 34 mg/dl (9-20); Carbon Dioxide 20 mmol/L (22-30); Chloride 105 mmol/L (98-107); Glucose 141 mg/dl (70-99); Iron 106 ug/dl (49-181); LDH 219 U/L (120-246); Potassium 4.5 mmol/L (3.5-5.1); Sodium 136 mmol/L (135-145); Total Bilirubin 1.2 mg/dl (0.2-1.3); Total Protein 6.7 g/dl (6.3-8.2); eGFR 47.65
[2023-12-18 13:10] LABS: Percent Saturation 30 % (20-50); Total Iron Binding Capacity 349 ug/dl (261-462)
[2023-12-18 14:37] LABS: % Basophils 1.6 % (0-2); % Eosinophils 3.1 % (0-6); % Immature Granulocytes 0.8 % (0-0.5); % Lymphocytes 56.7 % (20.5-51.1); % Monocytes 6.3 % (1.7-9.3); % Neutrophils 31.5 % (42.2-75.2); Absolute Lymphocytes 0.7 10^3/uL (1.2-3.4); Absolute Monocytes 0.1 10^3/uL (0.1-0.6); Absolute Neutrophils 0.4 10^3/uL (1.4-6.5); Hematocrit 24.9 % (39.0-52.0); Hemoglobin 8.2 g/dL (13.0-18.0); Mean Corp Hgb Conc. 32.9 g/dL (33.0-37.0); Mean Corpuscular Hgb 32.2 pg (27.0-31.0); Mean Corpuscular Volume 97.6 fL (80.0-94.0); Nucleated Red Blood Cells % 2.4 % (-); Platelet Count 42 10^3/uL (130-400); Red Blood Cell Count 2.55 10^6/uL (4.70-6.10); Red Cell Dist. Width 19.4 % (11.5-14.5); White Blood Cell Count 1.3 10^3/uL (4.8-10.8)
[2023-12-19 16:08] LABS: Erythropoietin (EPO) 153 mU/mL (4-27)
== END ==
LOC: REG 10:27
PROVIDERS: ATTENDING PHYSICIAN Internal Medicine Hematology & Oncology; FAMILY PHYSICIAN Internal Medicine
DX: R79.9 Abnormal finding of blood chemistry, unspecified (principal); R53.83 Other fatigue; D64.9 Anemia, unspecified; R53.1 Weakness; R06.00 Dyspnea, unspecified; C94.6 Myelodysplastic disease, not elsewhere classified
CPT/HCPCS: 36415; 80053; 82668; 82728; 83540; 83550; 83615; 84550; 85025

== ENCOUNTER 2024-01-03 15:23 | Inpatient (IN) | payer MEDICARE, OTHER, SELFPAY ==
[2024-01-03] VITALS (26 sets, daily range): BP systolic 104–144; BP diastolic 47–89
--- NOTE | 2024-01-03 10:47 | ED.GENMED ---
History of Present Illness
General
Chief Complaint: Weakness
Source: patient
Exam Limitations: none
Time Seen by Provider: 01/03/24 10:30
History of Present Illness
History of Present Illness:
78-year-old male presents with increased weakness. He was here a month ago for GI bleeding and pancytopenia. During his admission he had bone marrow biopsy. In the interim he has seen and followed up with oncology. Patient states he has
myelodysplastic syndrome. He has had 2 blood transfusions since then last 1 was 5 days ago. Since then he has had worsening weakness. He denies fevers. He also has a history of urostomy. He is on Coumadin. He denies any dark or bloody stools.
He denies abdominal pain or chest pain. He does feel lightheaded upon standing. No other complaints at this time. No known sick contacts
Past History
Past History
ED Past Medical History: Arrthythmia (Atrial fib), Cancer (Bladder CA), GERD, HTN, Hypercholesterolemia, IDDM and Other (Ulcers, Diverticulitis; cholecystitis, neuropathy, chronic dizziness)
ED Past Surgical History: Appendectomy, Urological (Bladder CA with removal and Ileol conduit) and Other (Ventral hernia)
Social History
Tobacco: Former smoker
Alcohol: Occasional
Drug: None
Personal:
Living: with family
Employment: Retired
Family History
Family History: Other (Noncontributory)
Phy Exam
Physical Exam
Physical Exam:
General: Chronically ill-appearing male no acute respiratory distress
HEENT: Normocephalic mucosa dry neck is supple heart: Regular rate and rhythm lungs: Clear no wheeze
Abdomen is soft with urostomy no guarding or tenderness no rebound normal bowel
Extremities: No cyanosis skin: Pale
Course
Orders/Labs/Results
Orders:
Orders
01/03/24 10:43
Type+Screen Urgent
01/03/24 10:45
Urinalysis Reflex To Culture Urgent
01/03/24 11:00
COVID-19 Antigen Urgent
Source: Nasal Swab
01/03/24 11:28
Comprehensive Metabolic Panel Urgent
01/03/24 11:47
Complete Blood Count/With Diff Urgent
Prothrombin Time Urgent
01/03/24 13:41
Blood Bank Products [* Blood Bank Products] Urgent
Blood Bank Products: *Packed RBC Leuko(PRBC's)
Quantity: 2
Transfuse Today: Yes
Reason: Anemia
01/03/24 13:42
Blood Bank Products [* Blood Bank Products] Urgent
Blood Bank Products: *Plt Single Donor Leuko
Quantity: 1
Transfuse Today: Yes
Reason: Thrombocytopenia
Abnormal Lab Results
01/03/24 01/03/24
11:28 11:47
WBC 1.0 L* 10^3/uL
(4.8-10.8)
RBC 1.89 L 10^6/uL
(4.70-6.10)
Hgb 5.8 L* g/dL
(13.0-18.0)
Hct 17.1 L* %
(39.0-52.0)
RDW 18.6 H %
(11.5-14.5)
Plt Count 8 L* 10^3/uL
(130-400)
Abs Immat Gran (auto) 0.1 H 10^3/uL
(0-0.05)
Absolute Neuts (auto) 0.2 L* 10^3/uL
(1.4-6.5)
Absolute Lymphs (auto) 0.7 L 10^3/uL
(1.2-3.4)
Immature Gran % 5.9 H %
(0-0.5)
Neutrophils % 18.6 L %
(42.2-75.2)
Lymphocytes % 68.6 H %
(20.5-51.1)
PT 36.6 H Sec
(11.4-14.6)
Chloride 108 H mmol/L
(98-107)
Carbon Dioxide 21 L mmol/L
(22-30)
BUN 50 H mg/dl
(9-20)
Creatinine 1.5 H mg/dL
(0.7-1.3)
Glucose 125 H mg/dl
(70-99)
Total Protein 5.9 L g/dl
(6.3-8.2)
01/03/24 11:47
01/03/24 11:28
Vital Signs
Initial and Last Documented VS:
Initial Vital Signs
Temp Pulse Resp BP Pulse Ox
97.9 F 92 16 117/77 100
01/03/24 10:40 01/03/24 10:40 01/03/24 10:40 01/03/24 10:40 01/03/24 10:40
Last Documented Vital Signs
Temp Pulse Resp BP Pulse Ox
97.9 F 81 28 116/61 98
01/03/24 10:40 01/03/24 13:00 01/03/24 13:00 01/03/24 13:00 01/03/24 13:00
MDM/Problems Addressed
Differential Diagnosis Includes:
Generalized weakness. Known history of myelodysplastic syndrome. Recent blood transfusion 5 days ago. He notes declining weakness since then. Question acute on chronic exacerbation of mild dysplastic syndrome versus anemia versus COVID versus UTI
Will check labs. COVID test ordered urinalysis ordered. INR pending.
*Critical Care Note
Total Time (30-74mins, 75-104mins- exclusive of procedures): Not Applicable
Update Note
Update Note:
Hemoglobin today 5.8 platelet count 8000. White blood cells 1. Patient is symptomatic from his anemia. He had recently had a transfusion. Will order 2 more units of packed red blood cells and a unit of platelets. Consent obtained. Admit to
hospital
ED Attending Note
-
Portions of this chart may have been created with voice recognition software.� Occasional wrong word or��sound alike� substitutions may have occurred due to the inherent limitations of voice recognition software.
Discharge Plan
Departure
Patient Disposition: Admit
Date of Disposition: 01/03/24
Time of Disposition: 13:50
Admit to: Telemetry
Presentation/result/management discussed w/ accepting MD/DO: Hospitalist
Discharge Problem:
Anemia
Prescriptions:
No Action
acetaminophen 650 mg Tablet Extended Release
650 mg PO Q8HPRN PRN (Reason: mild pain)
warfarin 5 mg tablet
5 mg PO SUMOTUWE@1900
insulin aspart U-100 [Novolog FlexPen U-100 Insulin] 100 unit/mL (3 mL) Insulin Pen
7 unit SC QPM
warfarin [Jantoven] 5 MG tablet
7.5 mg PO THFRSA@1900
insulin aspart U-100 [Novolog FlexPen U-100 Insulin] 300 UNITS/3 ML insulin pen
5 units SC BID@0800,1200
omeprazole 40 mg Capsule,Delayed Release(Dr/Ec)
40 mg PO DAILY
melatonin 5 mg Tablet
5 mg PO HS
polyethylene glycol 3350 [Miralax] 17 gram Powder In Packet
17 g PO DAILYPRN PRN (Reason: constipation)
metoprolol succinate [Toprol XL] 25 mg Tablet Extended Release 24 Hr
25 mg PO DAILY
insulin degludec 100 unit/mL (3 mL) Insulin Pen
23 unit SC HS
Referrals:
Raphael Lam MD [Family Provider] -
Interventions
Interventions:
*Risk Screen - Suicide Last Done: 01/03/24 10:41
*General Assessment Last Done: 01/03/24 10:41
*Neglect/Abuse Screening Last Done: 01/03/24 10:41
*ED COVID-19 Vaccine History Last Done: 01/03/24 10:41
ED- Cardiac Assessment Last Done: 01/03/24 10:41
ED- Neurological Assessment Last Done: 01/03/24 10:41
ED- Pulmonary Assessment Last Done: 01/03/24 10:41
Discharge Date and Time
Print Language: YEMENI
[2024-01-03 11:23] LABS: COVID-19 Antigen Negative (Negative)
[2024-01-03 12:05] LABS: INR 3.62; PT 36.6 Sec (11.4-14.6)
[2024-01-03 12:05] LABS: ALT (SGPT) 14 U/L (0-50); AST (SGOT) 25 U/L (17-59); Albumin 3.5 g/dl (3.5-5.0); Alkaline Phosphatase 71 U/L (38-126); Blood Urea Nitrogen 50 mg/dl (9-20); Calcium 9.1 mg/dl (8.4-10.2); Carbon Dioxide 21 mmol/L (22-30); Chloride 108 mmol/L (98-107); Glucose 125 mg/dl (70-99); Potassium 4.8 mmol/L (3.5-5.1); Sodium 141 mmol/L (135-145); Total Bilirubin 1.2 mg/dl (0.2-1.3); Total Protein 5.9 g/dl (6.3-8.2); eGFR 47.36
[2024-01-03 12:12] LABS: Hematocrit 17.1 % (39.0-52.0); Hemoglobin 5.8 g/dL (13.0-18.0); Mean Corp Hgb Conc. 33.9 g/dL (33.0-37.0); Mean Corpuscular Hgb 30.7 pg (27.0-31.0); Mean Corpuscular Volume 90.5 fL (80.0-94.0); Red Blood Cell Count 1.89 10^6/uL (4.70-6.10); Red Cell Dist. Width 18.6 % (11.5-14.5)
[2024-01-03 13:00] LABS: Platelet Count 8 10^3/uL (130-400)
[2024-01-03 13:03] LABS: % Immature Granulocytes 5.9 % (0-0.5); % Lymphocytes 68.6 % (20.5-51.1); % Monocytes 5.9 % (1.7-9.3); % Neutrophils 18.6 % (42.2-75.2); Absolute Immature Granulocytes 0.1 10^3/uL (0-0.05); Absolute Lymphocytes 0.7 10^3/uL (1.2-3.4); Absolute Monocytes 0.1 10^3/uL (0.1-0.6); Absolute Neutrophils 0.2 10^3/uL (1.4-6.5)
--- NOTE | 2024-01-03 15:09 | HPS.HSE ---
Family Physician
-
Family Physician: Raphael Lam
Chief Complaint
-
Weakness
History of Present Illness
78-year-old male with past medical history MDS, urostomy, atrial fibrillation, bladder cancer, hypertension, hyperlipidemia, diabetes, GERD, recent GI bleed after polypectomy now presents for weakness. Patient had bone marrow biopsy for MDS upon
that admission, acknowledges having my dysplastic syndrome. Has received 2 blood transfusions since discharge, last transfusion 5 days ago. Patient continued to have worsening weakness. Denies any dark or bloody stool compared to last admission.
Denies abdominal pain or chest pain although does have symptoms of lightheadedness upon standing. Otherwise no sick contacts, fever, chills, nausea, vomiting.
Medical History
Past Medical History
Past Medical History: Reports Other
Additional Past Medical History:
Permanent Atrial Fibrillation
Hypertension
DM-II
Bladder Cancer s/p TURBT and Systemic Chemo 2010 and permaent Ileal Conduit
GERD
DJD / DDD
COPD
Past Surgical History: Reports Other
Additional Past Surgical History:
Cystectomy / Prostatectomy / Ileal Conduit
Appendectomy
Hernia Repair
Social History
Tobacco: Former Smoker (Quit smoking in 1996 prior 2pack day 27 years )
Alcohol: Occasional
Personal:
Living: With Family ( iqra)
Employment: Retired
Family History
Family History: Other (no family hx colon ca, dad FTT, cva, mother sepsis uti no siblings )
Allergies / Home Medications
Allergies reflects when Allergies were last updated in [facility].
Home Medications with original date entered in [facility]
Allergy/Medication List:
Allergies
Allergy/AdvReac Type Severity Reaction Status Date / Time
pollen extracts Allergy SEASONAL-NASAL Verified 11/24/23 12:06
SYMPTOMS
sulfamethoxazole Allergy lip Verified 11/24/23 12:06
[From Bactrim] swelling
tetracycline Allergy Swelling/'penis Verified 11/24/23 12:06
swells up'.
trimethoprim [From Bactrim] Allergy lip Verified 11/24/23 12:06
swelling
Home Medications
acetaminophen 650 mg tablet,extended release 650 mg PO Q8HPRN PRN mild pain 03/15/23
insulin aspart U-100 100 unit/mL (3 mL) subcutaneous pen (Novolog FlexPen U-100 Insulin aspart) 6 units SC BID@0800,1200 Diabetes 03/15/23
insulin aspart U-100 100 unit/mL (3 mL) subcutaneous pen (Novolog FlexPen U-100 Insulin aspart) 8 unit SC QPM Diabetes 03/15/23
warfarin 5 mg tablet 5 mg PO SUMOTUWESA@1900 Blood Clot Prevention/Tx 03/15/23
warfarin 5 mg tablet (Jantoven) 10 mg PO THFR@1900 Blood clot prevention/tx 03/15/23
omeprazole 40 mg capsule,delayed release 40 mg PO BID Gastrointestinal Issue 05/31/23
melatonin 5 mg tablet 5 mg PO HS sleep 06/05/23
insulin degludec 100 unit/mL (3 mL) subcutaneous pen 28 unit SC HS Diabetes 11/24/23
metoprolol succinate 25 mg tablet,extended release 24 hr (Toprol XL) 25 mg PO DAILY Heart Disease/Condition 11/24/23
polyethylene glycol 3350 17 gram oral powder packet (Miralax) 17 g PO DAILYPRN PRN constipation 11/24/23
ondansetron 8 mg disintegrating tablet 8 mg PO Q8HPRN PRN nausea 01/03/24
Review of Systems
-
History Source: Patient
A 12 point ROS was completed and negative except as noted: Yes
Physical Exam
Vital Signs
Vital Signs
Temp Pulse Resp BP Pulse Ox
97.9 F 81 16 116/61 98
01/03/24 10:40 01/03/24 13:00 01/03/24 14:00 01/03/24 13:00 01/03/24 13:00
Physical Exam
General: Well Developed and Well Nourished
HEENT: NormoCephalic
Respiratory: Clear
Cardiac: S1/S2
GI: Soft
Musculoskeletal: No Clubbing
Skin: Warm and Dry
Neuro: Awake, Alert, Oriented and AO x 3
Hematologic/Lymphatic: No Lymphadenopathy
Psych: Calm
Laboratory Results
-
01/03/24 11:47
01/03/24 11:28
Laboratory Results
PT 36.6 Sec (11.4-14.6) H 01/03/24 11:47
INR 3.62 01/03/24 11:47
Total Bilirubin 1.2 mg/dl (0.2-1.3) 01/03/24 11:28
AST 25 U/L (17-59) 01/03/24 11:28
ALT 14 U/L (0-50) 01/03/24 11:28
Alkaline Phosphatase 71 U/L (38-126) 01/03/24 11:28
Data Reviewed
-
Lab Data: Labs Reviewed by me
Impression/Plan
-
IMPRESSION:
78-year-old male with recent history of GI bleed, MDS recently diagnosed now presents for weakness. Found to be pancytopenic.
PLAN:
# Symptomatic anemia
#Pancytopenia
#Myelodysplastic syndrome
-Transfused 2 unit PRBC, 1 unit platelet
� No evidence of active GI bleed at this time
� Hold on Coumadin as supratherapeutic INR
- cont PPI
� If any evidence of GI bleeding including drop in hemoglobin, black, tarry, bloody stool�can consider reversal with vitamin K and FFP
� Monitor coags
� Hematology consulted
� Trend CBC, maintain hgb goal >7 and Platelets >20k or 50k if bleeding
#CKD3b
� Stable
# Continue to monitor
#DM2
� Continue insulin dosing
-Sliding scale
#h/o bladder cancer and resection with urostomy
-clear urine in bag
#Parox afib
-hold on Coumadin as supratherapeutic INR - will need to change dosing
#DVT ppx
-supratherapeutic INR; no scds with platelets <50k
[2024-01-03 19:34] LABS: Urine Albumin Trace (Neg - Trace); Urine Bilirubin Negative (Negative); Urine Character Clear (Clear); Urine Color Yellow; Urine Glucose Negative (Negative); Urine Ketone Negative (Negative); Urine Leukocyte 2+ (Negative); Urine Nitrite Positive (Negative); Urine Occult Blood 2+ (Negative); Urine Urobilinogen Negative (Neg - 1+); Urine pH 6.5 (5.0-9.0)
[2024-01-03 19:48] LABS: Urine Bacteria Moderate (Negative)
[2024-01-03 19:49] LABS: Urine Red Blood Cell 16-20 /HPF (0-2)
[2024-01-03 20:30] LABS: Glucose - Point of Care 115 mg/dl (70-99)
[2024-01-03] MEDS: NOVOLOG FLEXPEN SC (20:38)
[2024-01-03] MEDS: MELATONIN 5 MG PO (22:34)
[2024-01-03 22:46] LABS: Glucose - Point of Care 110 mg/dl (70-99)
[2024-01-03] MEDS: LANTUS SC (22:46)
[2024-01-04] VITALS (12 sets, daily range): BP systolic 107–174; BP diastolic 51–78; PULSE 92–120; BMI 27.7
[2024-01-04 03:00] LABS: Hematocrit 17.2 % (39.0-52.0); Mean Corp Hgb Conc. 34.9 g/dL (33.0-37.0); Mean Corpuscular Hgb 31.4 pg (27.0-31.0); Mean Corpuscular Volume 90.1 fL (80.0-94.0); Mean Platelet Volume 11.5 fL (7.4-10.4); Platelet Count 25 10^3/uL (130-400); Red Blood Cell Count 1.91 10^6/uL (4.70-6.10); Red Cell Dist. Width 16.9 % (11.5-14.5); White Blood Cell Count 1.2 10^3/uL (4.8-10.8)
[2024-01-04 06:37] LABS: INR 3.05
[2024-01-04 06:38] LABS: Hematocrit 18.8 % (39.0-52.0); Hemoglobin 6.6 g/dL (13.0-18.0); Mean Corp Hgb Conc. 35.1 g/dL (33.0-37.0); Mean Corpuscular Hgb 31.6 pg (27.0-31.0); Mean Platelet Volume 13.4 fL (7.4-10.4); Platelet Count 24 10^3/uL (130-400); Red Blood Cell Count 2.09 10^6/uL (4.70-6.10); Red Cell Dist. Width 17.1 % (11.5-14.5)
[2024-01-04 07:38] LABS: ALT (SGPT) 12 U/L (0-50); AST (SGOT) 20 U/L (17-59); Alkaline Phosphatase 70 U/L (38-126); Blood Urea Nitrogen 52 mg/dl (9-20); Calcium 8.3 mg/dl (8.4-10.2); Carbon Dioxide 22 mmol/L (22-30); Chloride 110 mmol/L (98-107); Estimated Creatinine Clearance 43 ml/min; Glucose 135 mg/dl (70-99); Potassium 4.5 mmol/L (3.5-5.1); Sodium 142 mmol/L (135-145); Total Bilirubin 1.9 mg/dl (0.2-1.3); Total Protein 5.3 g/dl (6.3-8.2); eGFR 47.36
[2024-01-04 08:15] LABS: Glucose - Point of Care 167 mg/dl (70-99)
[2024-01-04] MEDS: TOPROL XL 25 MG PO (08:26)
[2024-01-04] MEDS: PROTONIX 40 MG PO (08:27)
[2024-01-04 08:30] LABS: % Eosinophils 3.1 % (0-6); % Lymphocytes 70.4 % (20.5-51.1); % Monocytes 6.1 % (1.7-9.3); % Neutrophils 18.4 % (42.2-75.2); Absolute Lymphocytes 0.7 10^3/uL (1.2-3.4); Absolute Monocytes 0.1 10^3/uL (0.1-0.6); Absolute Neutrophils 0.2 10^3/uL (1.4-6.5)
[2024-01-04] MEDS: NOVOLOG FLEXPEN 6 UNITS SC ×2 (10:22→13:15)
--- NOTE | 2024-01-04 11:22 | CON.ONC ---
Documented by User: ZAC Payan 01/04/24 12:52
Impression
Impression
Pancytopenia due to high risk MDS
recent GIB, monitor for bleeding
Plan
Plan
Neutropenic precautions. If febrile or develops sxs infection then would panculture and start empiric antibiotics
Transfuse packed RBC for hemoglobin less than 7 or as needed for symptomatic anemia
Transfuse SDP for platelets less than 10 if remains afebrile, if febrile and transfuse platelets less than 20.
Hold warfarin in the setting of severe thrombocytopenia. If any evidence of bleeding would reverse warfarin with FFP and vitamin K, otherwise can let drift down
check heme stool
Outpatient CBC QMon/Thurs for PRN transfusion suport
follow-up with Dr. Cruz for continued EPO and hypomethylating agent support upon discharge
Patient History
History of Present Illness
78-year-old male with high-grade MDS with increased blasts-2 presents to [place] emergency room with weakness. He has moderate to severe neutropenia, anemia, and thrombocytopenia from his underlying MDS. WBC 1, hemoglobin 5.8 g/dL, hematocrit
17.1, MCV 90.5, platelet count 8000, ANC 200. He is on warfarin for his atrial fibrillation. CKD remains at baseline with creatinine 1.5. Total bilirubin 1.2, AST 25, ALT 14, alkaline phosphatase 71. Urinalysis with pyuria, urine culture
pending. COVID-negative. He is being admitted, transfused with 2 unit packed RBCs and 1 unit of SDP.
He was evaluated by Dr. Cruz for pancytopenia. Bone marrow biopsy November 2023 showed mild dysplastic syndrome with multilineage dysplasia and increased blasts. Blast cells made up approximately 15% of cellularity, patchy mild increase in reticulin
present, decreased iron stores noted. Additional testing showed abnormal male karyotype as complex, TP53, SRS F2 variants. He is status post cycle 1 Vidaza 12/20-12/28.
Clinically, denies fever, chills, cough, chest pain, palpitations, nausea, vomiting, diarrhea, or abdominal pain. He had been constipated until today and reports a loose black stool.
Afebrile, no hypoxia or hypotension
Past-Medical/Surgical History
PMH bladder�cancer 2010 s/p chemo/XRT and bladder resection with ileal conduit, prostate�cancer, colonic�polyps, DJD, AF, HTN, DM2, GERD, COPD, CKD, GIB after polypectomy November 2023
PSH radical�cystectomy/prostatectomy appendectomy hernia�repair Cholecystectomy.
Social Former�Smoker.�Year�Quit�1990. Social�use�of�alcohol. , retired
Family: uncle colon cancer
Patient Medication
�Medication �Instructions �Recorded �Confirmed �Last Taken �Type
acetaminophen 650 mg 650 mg PO Q8HPRN PRN mild pain 03/15/23 01/03/24 11/20/23 History
tablet,extended release
insulin aspart U-100 100 unit/mL 6 units SC BID@0800,1200 Diabetes 03/15/23 01/03/24 01/03/24 History
(3 mL) subcutaneous pen (Novolog
FlexPen U-100 Insulin aspart)
insulin aspart U-100 100 unit/mL 8 unit SC QPM Diabetes 03/15/23 01/03/24 01/02/24 History
(3 mL) subcutaneous pen (Novolog
FlexPen U-100 Insulin aspart)
warfarin 5 mg tablet 5 mg PO SUMOTUWESA@1900 Blood Clot 03/15/23 01/03/24 01/02/24 History
Prevention/Tx
warfarin 5 mg tablet (Jantoven) 10 mg PO THFR@1900 Blood clot 03/15/23 01/03/24 11/18/23 History
prevention/tx
omeprazole 40 mg capsule,delayed 40 mg PO BID Gastrointestinal Issue 05/31/23 01/03/24 01/03/24 History
release
melatonin 5 mg tablet 5 mg PO HS sleep 06/05/23 01/03/24 01/02/24 History
insulin degludec 100 unit/mL (3 28 unit SC HS Diabetes 0701/03/24 01/02/24 History
mL) subcutaneous pen
metoprolol succinate 25 mg 25 mg PO DAILY Heart 11/24/23 01/03/24 01/03/24 History
tablet,extended release 24 hr Disease/Condition
(Toprol XL)
polyethylene glycol 3350 17 gram 17 g PO DAILYPRN PRN constipation 11/24/23 01/03/24 11/22/23 History
oral powder packet (Miralax)
ondansetron 8 mg disintegrating 8 mg PO Q8HPRN PRN nausea 01/03/24 01/03/24 Unknown History
tablet
Active Medications
Generic Name Dose Route Start Last Admin
Trade Name Freq PRN Reason Stop Dose Admin
Acetaminophen 650 mg 01/03/24 19:55
Acetaminophen 325 Mg Tablet PO 01/31/24 19:54
Q4HPRN PRN
mild pain
Insulin Glargine 28 units/ 0.28 mls @ 0 mls/hr 01/03/24 22:00 01/03/24 22:46
Device SC 01/31/24 21:59 Not Given
HS LYSSA
As Directed
Insulin Aspart 6 units 01/04/24 08:00 01/04/24 10:22
Insulin Aspart (100 Units/Ml) 3 Ml Flexpen SC 02/01/24 07:59 6 units
BID@0800,1200 LYSSA Administration
Insulin Aspart 8 units 01/03/24 19:18 01/03/24 20:38
Insulin Aspart (100 Units/Ml) 3 Ml Flexpen SC 01/31/24 19:17 Not Given
QPM LYSSA
Melatonin 5 mg 01/03/24 22:00 01/03/24 22:34
Melatonin 5 Mg Tablet PO 01/31/24 21:59 5 mg
HS LYSSA Administration
Metoprolol Succinate 25 mg 01/04/24 08:00 01/04/24 08:26
Metoprolol 25 Mg Extended Release Tablet PO 02/01/24 07:59 25 mg
DAILY LYSSA Administration
Ondansetron HCl 4 mg 01/03/24 19:18
Ondansetron 4 Mg Tablet PO 01/31/24 19:17
Q8HPRN PRN
nausea/vomiting
Pantoprazole Sodium 40 mg 01/04/24 08:00 01/04/24 08:27
Pantoprazole 40 Mg Delayed Release Tablet PO 02/01/24 07:59 40 mg
DAILY LYSSA Administration
Polyethylene Glycol 17 grams 01/03/24 19:18
Polyethylene Glycol Powder 17 Grams Packet PO 01/31/24 19:17
DAILYPRN PRN
constipation
Sodium Chloride 0 flush 01/03/24 20:00
Sodium Chloride 0.9% (Flush) Syringe IV 01/31/24 19:59
PER PROTOCOL LYSSA
Review of Systems
-
Review of systems notable for subjective, otherwise negative
Physical Exam
-
General: Cooperative, no acute distress
Eyes: sclerae anicteric
ENT: buccal mucosa moist
Neck: trachea midline
Lymph: No cervical, supraclavicular, axillary adenopathy
CV: normal S1, S2
Lungs: Good aeration bilaterally, no wheezing or rhonchi
Abdomen: Soft, nontender
Extrem: No edema,
Neuro: Alert, oriented, speech clear
Skin: Normal turgor, no rash on exposed areas
Labs
Lab Results
WBC 1.0 10^3/uL (4.8-10.8) L* 01/04/24 05:04
RBC 2.09 10^6/uL (4.70-6.10) L 01/04/24 05:04
Hgb 6.6 g/dL (13.0-18.0) L* 01/04/24 05:04
Hct 18.8 % (39.0-52.0) L* 01/04/24 05:04
MCV 90.0 fL (80.0-94.0) 01/04/24 05:04
MCH 31.6 pg (27.0-31.0) H 01/04/24 05:04
MCHC 35.1 g/dL (33.0-37.0) 01/04/24 05:04
RDW 17.1 % (11.5-14.5) H 01/04/24 05:04
Plt Count 24 10^3/uL (130-400) L* 01/04/24 05:04
MPV 13.4 fL (7.4-10.4) H 01/04/24 05:04
Abs Immat Gran (auto) 0.0 10^3/uL (0-0.05) 01/04/24 05:04
Absolute Neuts (auto) 0.2 10^3/uL (1.4-6.5) L* 01/04/24 05:04
Absolute Lymphs (auto) 0.7 10^3/uL (1.2-3.4) L 01/04/24 05:04
Absolute Monos (auto) 0.1 10^3/uL (0.1-0.6) 01/04/24 05:04
Absolute Eos (auto) 0.0 10^3/uL (0-0.7) 01/04/24 05:04
Absolute Basos (auto) 0.0 10^3/uL (0-0.2) 01/04/24 05:04
Immature Gran % 1.0 % (0-0.5) H 01/04/24 05:04
Neutrophils % 18.4 % (42.2-75.2) L 01/04/24 05:04
Lymphocytes % 70.4 % (20.5-51.1) H 01/04/24 05:04
Monocytes % 6.1 % (1.7-9.3) 01/04/24 05:04
Eosinophils % 3.1 % (0-6) 01/04/24 05:04
Basophils % 1.0 % (0-2) 01/04/24 05:04
Creatinine 1.5 mg/dL (0.7-1.3) H 01/04/24 05:04
Vital Signs
Vital Signs
Temp Pulse Resp BP Pulse Ox
98.4 F 85 20 114/78 100
01/04/24 07:00 01/04/24 08:26 01/04/24 07:00 01/04/24 08:26 01/04/24 08:50

Documented by User: Beka Jensen, 01/04/24 12:13
Impression
Impression
Pancytopenia due to high risk MDS poor prognosis 14% blasts
Recent GIB, monitor for bleeding
--- NOTE | 2024-01-04 13:05 | PTCARENOTE ---
pt aaox3. takes colace and miralax as needed. large bm this morning in the ED. pt received 2 units of blood and is due for another this afternoon. pt on neutropenic precautions. Urostomy bag on RLQ with drainage bag. pt is accucheck. first bowel
movement large and black in ED this morning. stool heme test checks ordered.
[2024-01-04 13:15] LABS: Glucose - Point of Care 188 mg/dl (70-99)
--- NOTE | 2024-01-04 14:07 | W.PN.HOSP.TC ---
Today's Communication/Plan
-
monitor cbc, any evidence of bleeding
transfuse for hgb goal >7
Assessment / Plan
Assessment / Plan
Physical Exam
General: Well Developed and Well Nourished
HEENT: NormoCephalic
Respiratory: Clear
Cardiac: S1/S2
GI: Soft
Musculoskeletal: No Clubbing
Skin: Warm and Dry
Neuro: Awake, Alert, Oriented and AO x 3
Hematologic/Lymphatic: No Lymphadenopathy
Psych: Calm
78-year-old male with recent history of GI bleed, MDS recently diagnosed now presents for weakness. Found to be pancytopenic.
PLAN:
# Symptomatic anemia
#Pancytopenia
#Myelodysplastic syndrome
-Transfused 2 unit PRBC, 1 unit platelet; transfuse 1u today
� No evidence of active GI bleed at this time, cont tomonitor
� Hold on Coumadin as supratherapeutic INR, and thrombocytopenic
- cont PPI
� If any evidence of GI bleeding including drop in hemoglobin, black, tarry, bloody stool�can consider reversal with vitamin K and FFP and GI consult
� Monitor coags
� Hematology consulted
� Trend CBC, maintain hgb goal >7 and Platelets >20k or 50k if bleeding
- Neutropenic precautions. If febrile or develops sxs infection then would panculture and start empiric antibiotics
-Transfuse SDP for platelets less than 10 if remains afebrile, if febrile and transfuse platelets less than 20.
-Outpatient CBC QMon/Thurs for PRN transfusion support
-follow-up with Dr. Cruz for continued EPO and hypomethylating agent support upon discharge
#CKD3b
� Stable
# Continue to monitor
#DM2
� Continue insulin dosing
-Sliding scale
#h/o bladder cancer and resection with urostomy
-clear urine in bag
#Parox afib
-hold on Coumadin as supratherapeutic INR - will need to change dosing
#DVT ppx
-supratherapeutic INR; no scds with platelets <50k
Anticipated Discharge: 24 - 48 hours
Subjective/Interval History
-
Date of Service: January 04, 2024
transfusion today
Objective Data
-
Labs:
Laboratory Results
01/04/24 01/04/24
02:42 05:04
WBC 1.2 L* 1.0 L*
Hgb 6.0 L* 6.6 L*
Hct 17.2 L* 18.8 L*
Plt Count 25 L* D 24 L*
PT 32.0 H
INR 3.05
APTT 64.0 H
Sodium 142
Potassium 4.5
Chloride 110 H
Carbon Dioxide 22
BUN 52 H
Creatinine 1.5 H
Glucose 135 H
Calcium 8.3 L
Total Bilirubin 1.9 H
AST 20
ALT 12
Alkaline Phosphatase 70
Vital Signs:
Vital Signs
Temp Pulse Resp BP Pulse Ox
97.9 F 109 16 127/62 91
01/04/24 14:02 01/04/24 14:02 01/04/24 14:02 01/04/24 14:02 01/04/24 12:50
I&O
01/03/24 01/04/24 01/05/24
06:59 06:59 06:59
Intake Total 830 / 830 0 / 0
Output Total 800 / 800
Balance 0 / 0
Review of Systems
-
History Source: Patient
All other systems: Not reviewed unless documented
Physical Exam
-
General: No Apparent Distress
HEENT: Normocephalic and Atraumatic
Respiratory: Clear to Auscultation
Cardiac: Regular Rhythm and S1/S2; Negative Murmur
GI: Soft, Nontender and Nondistended
Neuro: AO x 3
Psych: Calm
Data Reviewed
-
Total Time Spent with Patient (in minutes): 45
Labs: Labs Reviewed by me
--- NOTE | 2024-01-04 14:41 | PN.CDI ---
CDI
- -
CDI:
Physician Documentation Request
Admit Date: 01/03/24 15:23
Dear Doctor Angel,
Please review the following and provide your response in the progress notes.
Clinical Indicators:
Pt admitted with symptomatic anemia, pancytopenia, and myelodysplastic syndrome.
01/03 Oncology: 'Neutropenic precautions.'
Laboratory Tests
01/03/24 01/04/24 01/04/24
11:47 02:42 05:04
WBC 1.0 L* 1.2 L* 1.0 L*
Based on the above, could you clarify in the progress notes, the appropriate diagnosis, if significant, that supports the above abnormalities and additional evaluation, monitoring and/or treatment rendered:
Pt is Immunocompromised
Pt is not Immunocompromised
Other
Use of terms such as suspected, likely, concern for, or probable (associated with a specific diagnosis that is being evaluated, monitored, or treated as if it exists) are acceptable and can be coded in the inpatient setting, when documented at the
time of discharge.
Thank you,
Carmen Yip RN, BSN
CDI Specialist
Available via [employer]
Please use your independent medical judgment in providing your response.
--- NOTE | 2024-01-04 15:54 | PTCARENOTE ---
third unit of blood hung in patient room this afternoon. See TAR for proper documentation. pt takes pills whole with water and states that he uses catheter bag to keep track of urinary output HS. bag intact at this time.
[2024-01-04] MEDS: NOVOLOG FLEXPEN 8 UNITS SC (17:12)
[2024-01-04 17:14] LABS: Glucose - Point of Care 155 mg/dl (70-99)
--- NOTE | 2024-01-04 17:23 | CM ---
CM reviewed patient's chart. Spoke with patient and at bedside. CM introduced self and role. He is [place].
PCP: Dr. Erik Lam
Pharmacy: [facility] in [place], [place]
Living situation: Patient lives with his , Mirza. He live in a single-level home. No steps to enter the home.
Finances: Patient denies any social insecurities. He is able to afford her housing, clothing, medications, food, utilities and transportation. He is a retired bus and line haul truck driver.
DME/Ambulation: Patient usually ambulates independently, but currently, is needing assistance, due to balance issues (per patient). He owns a walker and utilizes a cane.
Transportation: Patient's will provide transportation once he is discharged. Patient does not drive.
Agreeable to home health care?: Yes, current with [facility].
ANTICIPATED DISCHARGE DISPOSITION:
Return to home with and [facility] services when medically cleared and pending PT/OT's evaluations and recommendations.
CM will continue to follow case and available for further assistance.
[2024-01-04] MEDS: ZOFRAN 4 MG PO (20:15)
[2024-01-04 21:17] LABS: Hematocrit 20.7 % (39.0-52.0); Hemoglobin 7.3 g/dL (13.0-18.0); Mean Corp Hgb Conc. 35.3 g/dL (33.0-37.0); Mean Corpuscular Hgb 31.2 pg (27.0-31.0); Mean Corpuscular Volume 88.5 fL (80.0-94.0); Mean Platelet Volume 13.5 fL (7.4-10.4); Platelet Count 21 10^3/uL (130-400); Red Blood Cell Count 2.34 10^6/uL (4.70-6.10); Red Cell Dist. Width 16.5 % (11.5-14.5); White Blood Cell Count 1.2 10^3/uL (4.8-10.8)
[2024-01-04 21:27] LABS: Glucose - Point of Care 118 mg/dl (70-99)
[2024-01-04] MEDS: LANTUS 0.28 UNITS SC (22:11)
[2024-01-04] MEDS: MELATONIN 5 MG PO (22:11)
[2024-01-05 07:15] VITALS: BP 118/66
[2024-01-05 08:02] LABS: Glucose - Point of Care 147 mg/dl (70-99)
--- NOTE | 2024-01-05 08:10 | W.PN.ONC2 ---
Today's Communication / Plan
-
cbc with diff daily
transfuse prn
Ucx with GNB -management per primary service
Impression
Impression
Pancytopenia due to high risk MDS poor prognosis 14% blasts
Recent GIB, monitor for bleeding
urine culture with GNB
Plan
Plan
Neutropenic precautions. If febrile or develops sxs infection then would panculture and start empiric antibiotics
Transfuse packed RBC for hemoglobin less than 7 or as needed for symptomatic anemia
Transfuse SDP for platelets less than 10 if remains afebrile, if febrile and transfuse platelets less than 20.
Hold warfarin in the setting of severe thrombocytopenia. If any evidence of bleeding would reverse warfarin with FFP and vitamin K, otherwise can let drift down
f/u heme stool
urine culture with GNB -abx per primary service
Outpatient CBC QMon/Thurs for PRN transfusion suport
follow-up with Dr. Cruz for continued EPO and hypomethylating agent support upon discharge
Subjective/Objective
Chief Complaint
afebrile, no hypoxia or hypotension
Subjective
no new complaints
Vital Signs:
Vital Signs
Temp Pulse Resp BP Pulse Ox
97.9 F 82 14 117/66 97
01/04/24 23:38 01/04/24 23:38 01/04/24 23:38 01/04/24 23:38 01/05/24 00:39
Lab Results:
Laboratory Data
WBC 1.2 10^3/uL (4.8-10.8) L* 01/04/24 20:04
Hgb 7.3 g/dL (13.0-18.0) L 01/04/24 20:04
Plt Count 21 10^3/uL (130-400) L* 01/04/24 20:04
PT 32.0 Sec (11.4-14.6) H 01/04/24 05:04
INR 3.05 01/04/24 05:04
APTT 64.0 Sec (23.4-35.0) H 01/04/24 05:04
eGFR 47.36 01/04/24 05:04
Physical Exam
General: Cooperative, no acute distress
Eyes: sclerae anicteric
ENT: buccal mucosa moist
Neck: trachea midline
Lymph: No cervical, supraclavicular, axillary adenopathy
CV: normal S1, S2
Lungs: Good aeration bilaterally, no wheezing or rhonchi
Abdomen: Soft, nontender
Extrem: No edema,
Neuro: Alert, oriented, speech clear
Skin: Normal turgor, no rash on exposed areas
Review of Systems
Review of Systems
ROS notable for subjective, otherwise negative
Orders
Orders
Orders From Last 24 Hours
01/04/24 11:38
Precautions As Directed
01/04/24 12:51
Precautions As Directed
01/04/24 12:52
Stool for occult blood [Hemetest Stools] As Directed
[2024-01-05 08:18] LABS: ALT (SGPT) 14 U/L (0-50); AST (SGOT) 21 U/L (17-59); Albumin 3.4 g/dl (3.5-5.0); Alkaline Phosphatase 77 U/L (38-126); Blood Urea Nitrogen 51 mg/dl (9-20); Calcium 8.8 mg/dl (8.4-10.2); Carbon Dioxide 20 mmol/L (22-30); Chloride 110 mmol/L (98-107); Estimated Creatinine Clearance 42 ml/min; Glucose 133 mg/dl (70-99); Potassium 4.8 mmol/L (3.5-5.1); Sodium 142 mmol/L (135-145); Total Bilirubin 1.4 mg/dl (0.2-1.3); Total Protein 5.8 g/dl (6.3-8.2); eGFR 43.83
[2024-01-05 08:38] LABS: % Lymphocytes 71.7 % (20.5-51.1); % Monocytes 6.1 % (1.7-9.3); % Neutrophils 19.2 % (42.2-75.2); Absolute Lymphocytes 0.7 10^3/uL (1.2-3.4); Absolute Monocytes 0.1 10^3/uL (0.1-0.6); Absolute Neutrophils 0.2 10^3/uL (1.4-6.5); Hematocrit 23.7 % (39.0-52.0); Hemoglobin 8.2 g/dL (13.0-18.0); Mean Corp Hgb Conc. 34.6 g/dL (33.0-37.0); Mean Corpuscular Hgb 31.2 pg (27.0-31.0); Mean Corpuscular Volume 90.1 fL (80.0-94.0); Mean Platelet Volume 11.5 fL (7.4-10.4); Platelet Count 19 10^3/uL (130-400); Red Blood Cell Count 2.63 10^6/uL (4.70-6.10); Red Cell Dist. Width 16.6 % (11.5-14.5)
[2024-01-05] MEDS: NOVOLOG FLEXPEN 6 UNITS SC ×2 (08:42→13:34)
[2024-01-05] MEDS: TOPROL XL 25 MG PO (08:43)
[2024-01-05] MEDS: PROTONIX 40 MG PO (08:43)
--- NOTE | 2024-01-05 10:19 | VNURNOTE ---
Chart reviewed. Patient is current with [facility] nursing, PT, OT. [facility] aware. Resumption referral in [facility]. Will continue to monitor hospital course.
--- NOTE | 2024-01-05 10:40 | PTCARENOTE ---
WBC 1.0 (1.2). PLT 19 (21)to Dr. Naren V via TT
10:39
--- NOTE | 2024-01-05 11:17 | CON.GI ---
Addendum entered and electronically signed by Jae Julian MD 01/05/24 14:37:
I saw and examined the patient.
The PA's note was reviewed and I agree with the note.
Comment:
78 year old male with a newly-diagnosed MDS and other medical hx as noted below p/w symptomatic anemia, Hgb 5.8 on admission with severe thrombocytopenia (8k). He is followed by Hematology outpatient and has completed 1 cycle of chemotherapy
(Vidaza) 12/29/23 per Hem/Onc. GI consulted for evaluation of melenic stool. He states he had not had a BM in about 6 days until yesterday when he had a large, 'black' bowel movement.
Impression / Rec:
1. Melena - likely isolated GI bleed from severe thrombocytopenia and recent AC use (coumadin stopped 2 days ago). He had endo eval recently (EGD 09/2023 and colonoscopy with EMR on 11/2023). No clinical suspicion for active bleeding currently.
Would defer endo eval given severe thrombocytopenia, low likelihood of identifying bleeding lesion, and also pt's preference (does not want endo eval). Recommend following heme rec's, supportive mx. GI will s/o, pls call with questions or if signs
of active GI hemorrhage occurs.
Original Note:
Consultation
-
Date/Time Consultation Requested: 01/05/24 1013
Date/Time Consultation Performed: 01/05/24 1100
Requesting Provider: Tino Ortiz
Performing Provider: Dr Julian / Shonda Peter PA-C
Reason for Consultation: Melena
Medical History
Chief Complaint / HPI
Chief Complaint: Black stool
History of Present Illness:
This is a 78 year old male with a past medical history of newly-diagnosed MDS with resulting severe neutropenia, anemia and thrombocytopenia; bladder CA (2010, s/p resection with ileal conduit, chemo and radiation), atrial fibrillation (on
Warfarin), HTN, COPD, CKD, GERD, colon polyps and history of recent GI bleed post-polypectomy 11/2023. He presented to the hospital with complaints of weakness on 01/03/24. Hgb in the ER was 5.8, patient received 2 units PRBCs. Platelet count was 8
and patient also received 1 unit of platelets. He is followed closely by Hematology outpatient and has completed 1 cycle of chemotherapy (Vidaza) 12/29/23 per Hem/Onc. In November, patient was admitted after he developed rectal bleeding 10 days after
colonoscopy with Dr. Julian on 11/14/23 to remove a 45mm ascending colon polyp via mucosal resection with APC and placement of 5 hemostatic clips. The bleeding subsided during that admission and stopped on its own and he did not require repeat
colonoscopy. He states that he had no further bleeding after discharge - no melena or BRBPR. He has been more constipated recently and has been taking OTC Miralax, Colace and Dulcolax to relieve the constipation. He states he had not had a BM in
about 6 days until yesterday when he had a large, 'black' bowel movement. GI is asked to consult. He denies any abdominal pain, nausea, vomiting, diarrhea, fever or chills. Labs reviewed with notable pancytopenia. Hematology is following closely.
Warfarin is currently held, last dose was 2 days ago.
Past Medical History
Past Medical History: Arrhythmias (Afib), COPD, HTN, NIDDM and Other (Bladder CA)
Past Surgical History: Other (Ileal conduit)
Social History
Tobacco: Former Smoker
Alcohol: Occasional
Family History
Family History: Reviewed & Not Pertinent
Allergies / Home Medications
Allergy/AdvReac Type Severity Reaction Status Date / Time
pollen extracts Allergy SEASONAL-NASAL Verified 11/24/23 12:06
SYMPTOMS
sulfamethoxazole Allergy lip Verified 11/24/23 12:06
[From Bactrim] swelling
tetracycline Allergy Swelling/'penis Verified 11/24/23 12:06
swells up'.
trimethoprim [From Bactrim] Allergy lip Verified 11/24/23 12:06
swelling
�Medication �Instructions �Recorded
acetaminophen 650 mg 650 mg PO Q8HPRN PRN mild pain 03/15/23
tablet,extended release
insulin aspart U-100 100 unit/mL 6 units SC BID@0800,1200 Diabetes 03/15/23
(3 mL) subcutaneous pen (Novolog
FlexPen U-100 Insulin aspart)
insulin aspart U-100 100 unit/mL 8 unit SC QPM Diabetes 03/15/23
(3 mL) subcutaneous pen (Novolog
FlexPen U-100 Insulin aspart)
warfarin 5 mg tablet 5 mg PO SUMOTUWESA@1900 Blood Clot 03/15/23
Prevention/Tx
warfarin 5 mg tablet (Jantoven) 10 mg PO THFR@1900 Blood clot 03/15/23
prevention/tx
omeprazole 40 mg capsule,delayed 40 mg PO BID Gastrointestinal Issue 05/31/23
release
melatonin 5 mg tablet 5 mg PO HS sleep 06/05/23
insulin degludec 100 unit/mL (3 28 unit SC HS Diabetes 11/24/23
mL) subcutaneous pen
metoprolol succinate 25 mg 25 mg PO DAILY Heart 11/24/23
tablet,extended release 24 hr Disease/Condition
(Toprol XL)
polyethylene glycol 3350 17 gram 17 g PO DAILYPRN PRN constipation 11/24/23
oral powder packet (Miralax)
ondansetron 8 mg disintegrating 8 mg PO Q8HPRN PRN nausea 01/03/24
tablet
Review of Systems
-
History Source: Patient
All other systems: A 12 pt ROS was Negative except as stated above in HPI
Vital Signs
Temp Pulse Resp BP Pulse Ox
97.9 F 96 16 118/66 99
01/05/24 07:15 01/05/24 07:15 01/05/24 07:15 01/05/24 08:43 01/05/24 07:15
Physical Exam
Exam
General: Well Developed, Well Nourished and No Apparent Distress
Respiratory: Clear
Cardiac: Regular Rhythm
GI: Soft, Non Tender, Non Distended, Normal Bowel Sounds and Other (RLQ ileal conduit urostomy present with small amount of lt yellow urine)
Rectal: Brown and Hem Positive
Skin: Warm
Neuro: AO x 3
Psych: Calm
Results
WBC 1.0 10^3/uL (4.8-10.8) L* 01/05/24 07:13
Hgb 8.2 g/dL (13.0-18.0) L 01/05/24 07:13
Hct 23.7 % (39.0-52.0) L 01/05/24 07:13
MCV 90.1 fL (80.0-94.0) 01/05/24 07:13
Plt Count 19 10^3/uL (130-400) L* 01/05/24 07:13
Absolute Neuts (auto) 0.2 10^3/uL (1.4-6.5) L* 01/05/24 07:13
PT 32.0 Sec (11.4-14.6) H 01/04/24 05:04
INR 3.05 01/04/24 05:04
APTT 64.0 Sec (23.4-35.0) H 01/04/24 05:04
Sodium 142 mmol/L (135-145) 01/05/24 07:13
Potassium 4.8 mmol/L (3.5-5.1) 01/05/24 07:13
Chloride 110 mmol/L (98-107) H 01/05/24 07:13
Carbon Dioxide 20 mmol/L (22-30) L 01/05/24 07:13
BUN 51 mg/dl (9-20) H 01/05/24 07:13
Creatinine 1.6 mg/dL (0.7-1.3) H 01/05/24 07:13
Calcium 8.8 mg/dl (8.4-10.2) 01/05/24 07:13
Total Bilirubin 1.4 mg/dl (0.2-1.3) H 01/05/24 07:13
AST 21 U/L (17-59) 01/05/24 07:13
ALT 14 U/L (0-50) 01/05/24 07:13
Alkaline Phosphatase 77 U/L (38-126) 01/05/24 07:13
Diagnostic Image Results:
Prior GI Procedures:
EGD:
09/14/23 - Dr. Chin
Tortuous esophagus.
- Normal mucosa was found in the entire esophagus.
Biopsied.
- Gastritis. Biopsied.
- A few gastric polyps.
- Normal examined duodenum.
Path: neg H pylori, neg eosinophilic esophagitis.
Colonoscopy:
11/14/23 - Dr. Julian
Hemorrhoids found on perianal exam.
- The examined portion of the ileum was normal.
- One 45 mm polyp in the ascending colon, removed with
mucosal resection. Resected and retrieved. Treated
with argon plasma coagulation (APC). Clips (MR
conditional) were placed.
- Three 4 to 9 mm polyps in the ascending colon,
removed with a cold snare. Resected and retrieved.
- Internal hemorrhoids.
- Mucosal resection was performed. Resection and
retrieval were complete.
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
the other AC smaller polyps are tubular adenomas
Assessment / Plan
-
78 year old male with a history of newly-diagnosed MDS with resulting severe neutropenia, anemia and thrombocytopenia; bladder CA (2010, s/p resection with ileal conduit, chemo and radiation), atrial fibrillation (on Warfarin), HTN, COPD, CKD, GERD,
colon polyps and history of recent GI bleed post-polypectomy 11/2023. He presented to the hospital with complaints of weakness on 01/03/24. Hgb in the ER was 5.8, patient received 2 units PRBCs. Platelet count was 8 and patient also received 1 unit of
platelets. He is followed closely by Hematology outpatient and has completed 1 cycle of chemotherapy (Vidaza) 12/29/23 per Hem/Onc. In November, patient was admitted after he developed rectal bleeding 10 days after colonoscopy with Dr. Julian on 11/14/23 to
remove a 45mm ascending colon polyp via mucosal resection with APC and placement of 5 hemostatic clips. The bleeding subsided during that admission and stopped on its own and he did not require repeat colonoscopy. He states that he had no further
bleeding after discharge - no melena or BRBPR. He has been more constipated recently and has been taking OTC Miralax, Colace and Dulcolax to relieve the constipation. He states he had not had a BM in about 6 days until yesterday when he had a large,
'black' bowel movement. He denies any abdominal pain, nausea, vomiting, diarrhea, fever or chills. Labs reviewed with notable pancytopenia. Hematology is following closely. Warfarin is currently held, last dose was 2 days ago.
IMPRESSION / PLAN:
Heme-positive stools, in the setting of chronic anticoagulation and MDS with significant thrombocytopenia (pancytopenia)
- Hgb stable at 8.3 (s/p PRBCs x2)
- platelet count 19 (s/p 1 unit of platelets)
- Warfarin currently held
- trend hemoglobin, transfuse per Hematology if drops <7
- monitor carefully for any recurrent GI bleeding
- patient does not wish to have any endoscopic procedures, would hold off at this time - to discuss further with Dr. Julian
-
-
Thank you for consultation and allowing me to participate in the patient's care. Please call the investigation division sergeant GI physician during the after hours with any questions or concerns.
[2024-01-05 12:05] LABS: Glucose - Point of Care 157 mg/dl (70-99)
--- NOTE | 2024-01-05 13:03 | W.PN.HOSP.TC ---
Today's Communication/Plan
-
monitor cbc
gi consulted
Assessment / Plan
Assessment / Plan
Physical Exam
General: Well Developed and Well Nourished
HEENT: NormoCephalic
Respiratory: Clear
Cardiac: S1/S2
GI: Soft
Musculoskeletal: No Clubbing
Skin: Warm and Dry
Neuro: Awake, Alert, Oriented and AO x 3
Hematologic/Lymphatic: No Lymphadenopathy
Psych: Calm
78-year-old male with recent history of GI bleed, MDS recently diagnosed now presents for weakness. Found to be pancytopenic.
PLAN:
# Symptomatic anemia
#Pancytopenia
#Myelodysplastic syndrome
-Transfused 3 unit PRBC today, 1 unit platelet;
� No evidence of active GI bleed at this time, cont to monitor
� Hold on Coumadin as supratherapeutic INR, and thrombocytopenic
- cont PPI
� �can consider reversal with vitamin K and FFP if continued blood loss
-GI consulted for black stool
� Monitor coags
� Hematology consulted
� Trend CBC, maintain hgb goal >7 and Platelets >10k or 20k if fever ; >50k if bleeding
- Neutropenic precautions. If febrile or develops sxs infection then would panculture and start empiric antibiotics
-Transfuse SDP for platelets less than 10 if remains afebrile, if febrile and transfuse platelets less than 20.
-Outpatient CBC QMon/Thurs for PRN transfusion support
-follow-up with Dr. Cruz for continued EPO and hypomethylating agent support upon discharge
#CKD3b
� Stable
# Continue to monitor
#DM2
� Continue insulin dosing
-Sliding scale
#h/o bladder cancer and resection with urostomy
-clear urine in bag
#Parox afib
-hold on Coumadin as supratherapeutic INR - will need to change dosing
#DVT ppx
-supratherapeutic INR; no scds with platelets <50k
Anticipated Discharge: 24 - 48 hours
Subjective/Interval History
-
Date of Service: January 05, 2024
had black bm yesterday
Objective Data
-
Labs:
Laboratory Results
01/05/24
07:13
WBC 1.0 L*
Hgb 8.2 L
Hct 23.7 L
Plt Count 19 L*
Sodium 142
Potassium 4.8
Chloride 110 H
Carbon Dioxide 20 L
BUN 51 H
Creatinine 1.6 H
Glucose 133 H
Calcium 8.8
Total Bilirubin 1.4 H
AST 21
ALT 14
Alkaline Phosphatase 77
Vital Signs:
Vital Signs
Temp Pulse Resp BP Pulse Ox
97.9 F 96 16 118/66 99
01/05/24 07:15 01/05/24 07:15 01/05/24 07:15 01/05/24 08:43 01/05/24 07:15
I&O
01/04/24 01/05/24 01/06/24
06:59 06:59 06:59
Intake Total 830 / 830 1730 / 1730
Output Total 800 / 800 1130 / 1130 600 / 600
Balance 600 / 600 -600 / -600
Review of Systems
-
History Source: Patient
All other systems: Not reviewed unless documented
Physical Exam
-
General: No Apparent Distress
HEENT: Normocephalic and Atraumatic
Respiratory: Clear to Auscultation
Cardiac: Regular Rhythm and S1/S2; Negative Murmur
GI: Soft, Nontender and Nondistended
Neuro: AO x 3
Psych: Calm
Data Reviewed
-
Diagnostic Radiology: Image personally visualized and interpreted and Report Reviewed by me
Labs: Labs Reviewed by me
[2024-01-05 15:15] VITALS: BP 124/88
--- NOTE | 2024-01-05 15:34 | PN.CDI ---
CDI
- -
CDI:
Physician Documentation Request
Admit Date: 01/03/24 15:23
Dear Doctor Angel,
Please review the following and provide your response in the progress notes.
Clinical Indicators:
Pt admitted with symptomatic anemia, pancytopenia, and myelodysplastic syndrome.
01/04 GI note: 'Melena - likely isolated GI bleed from severe thrombocytopenia and recent AC use (coumadin stopped 2 days ago).'
Please clarify the relationship between these conditions:
Anemia is related to/associated with/exacerbated by Coumadin.
Anemia is not related to/associated with/exacerbated by Coumadin. (Please specify)
Other
Use of terms such as suspected, likely, concern for, or probable (associated with a specific diagnosis that is being evaluated, monitored, or treated as if it exists) are acceptable and can be coded in the inpatient setting, when documented at the
time of discharge.
Thank you,
Carmen Yip RN, BSN
CDI Specialist
[place] [facility]
Please use your independent medical judgment in providing your response.
--- NOTE | 2024-01-05 15:44 | CM ---
Patent seen at bedside.
IMM explained & signed. Placed in chart.
Patient current with [facility] - referral in [facility].
Patient inquiring about a wheelchair.
tt Dr. Ortiz for PT/OT evals.
PLAN: Home with [facility] when medically stable.
[2024-01-05 17:13] LABS: Glucose - Point of Care 71 mg/dl (70-99)
[2024-01-05] MEDS: NOVOLOG FLEXPEN 8 UNITS SC (17:24)
[2024-01-05] MEDS: ZOFRAN 4 MG PO (18:30)
[2024-01-05 21:15] LABS: Glucose - Point of Care 102 mg/dl (70-99)
[2024-01-05] MEDS: LANTUS 0.28 UNITS SC (21:25)
[2024-01-05] MEDS: MELATONIN 5 MG PO (21:26)
[2024-01-05 22:51] VITALS: BP 120/73
[2024-01-06] VITALS (7 sets, daily range): BP systolic 106–144; BP diastolic 47–70; PULSE 89–123; O2SAT 100
[2024-01-06 07:11] LABS: Glucose - Point of Care 102 mg/dl (70-99)
[2024-01-06] MEDS: PROTONIX 40 MG PO (09:05)
[2024-01-06] MEDS: TOPROL XL 25 MG PO (09:05)
[2024-01-06] MEDS: NOVOLOG FLEXPEN 6 UNITS SC ×2 (09:05→13:04)
[2024-01-06 09:39] LABS: INR 2.52
[2024-01-06 09:40] LABS: APTT 49.9 Sec (23.4-35.0)
[2024-01-06 09:53] LABS: ALT (SGPT) 14 U/L (0-50); AST (SGOT) 22 U/L (17-59); Albumin 3.2 g/dl (3.5-5.0); Alkaline Phosphatase 72 U/L (38-126); Blood Urea Nitrogen 48 mg/dl (9-20); Calcium 8.9 mg/dl (8.4-10.2); Carbon Dioxide 22 mmol/L (22-30); Chloride 109 mmol/L (98-107); Estimated Creatinine Clearance 39 ml/min; Glucose 129 mg/dl (70-99); Potassium 4.6 mmol/L (3.5-5.1); Sodium 141 mmol/L (135-145); Total Bilirubin 1.4 mg/dl (0.2-1.3); Total Protein 5.5 g/dl (6.3-8.2); eGFR 40.75
[2024-01-06 10:00] LABS: Hemoglobin 6.8 g/dL (13.0-18.0); Mean Corpuscular Hgb 31.2 pg (27.0-31.0); Mean Corpuscular Volume 91.7 fL (80.0-94.0); Mean Platelet Volume 9.4 fL (7.4-10.4); Platelet Count 15 10^3/uL (130-400); Red Blood Cell Count 2.18 10^6/uL (4.70-6.10); Red Cell Dist. Width 16.4 % (11.5-14.5); White Blood Cell Count 0.9 10^3/uL (4.8-10.8)
--- NOTE | 2024-01-06 10:28 | W.PN.HOSP.TC ---
Today's Communication/Plan
-
continued heme eval
transfuse 1u prbc today
monitor CbC
warfarin as per heme
Assessment / Plan
Assessment / Plan
Physical Exam
General: Well Developed and Well Nourished
HEENT: NormoCephalic
Respiratory: Clear
Cardiac: S1/S2
GI: Soft
Musculoskeletal: No Clubbing
Skin: Warm and Dry
Neuro: Awake, Alert, Oriented and AO x 3
Hematologic/Lymphatic: No Lymphadenopathy
Psych: Calm
78-year-old male with recent history of GI bleed, MDS recently diagnosed now presents for weakness. Found to be pancytopenic.
PLAN:
# Symptomatic anemia
#Pancytopenia
#Myelodysplastic syndrome
-Transfused 4 unit PRBC total including today; 1 unit platelet; tranfused 1u prbc today
� No evidence of active GI bleed at this time, cont to monitor
� Held Coumadin as supratherapeutic INR, and thrombocytopenic; await heme recs for restaring coumadin
- cont PPI
� �can consider reversal with vitamin K and FFP if continued blood loss
-GI consulted for black stool: NTD; also refuses endoscopy
� Monitor coags
� Hematology consulted
� Trend CBC, maintain hgb goal >7 and Platelets >10k or 20k if fever ; >50k if bleeding
- Neutropenic precautions. If febrile or develops sxs infection then would panculture and start empiric antibiotics
-Transfuse SDP for platelets less than 10 if remains afebrile, if febrile and transfuse platelets less than 20.
-Outpatient CBC QMon/Thurs for PRN transfusion support
-follow-up with Dr. Cruz for continued EPO and hypomethylating agent support upon discharge
#CKD3b
� Stable
# Continue to monitor
#DM2
� Continue insulin dosing
-Sliding scale
#h/o bladder cancer and resection with urostomy
-clear urine in bag
#Asymptomatic bacteruria
-no fever, nor symptoms- will hold on abx unless desired by heme
#Parox afib
-Coumadin on hold as supratherapeutic INR - await heme clearance for restarting
#DVT ppx
- INR in range; no scds with platelets <50k
Anticipated Discharge: Within 24 hours
Subjective/Interval History
-
Date of Service: January 06, 2024
Worked with PT today, hemoglobin dropped again
Objective Data
-
Labs:
Laboratory Results
01/06/24
08:42
WBC 0.9 L*
Hgb 6.8 L*
Hct 20.0 L*
Plt Count 15 L* D
PT 27.0 H
INR 2.52
APTT 49.9 H
Sodium 141
Potassium 4.6
Chloride 109 H
Carbon Dioxide 22
BUN 48 H
Creatinine 1.7 H
Glucose 129 H
Calcium 8.9
Total Bilirubin 1.4 H
AST 22
ALT 14
Alkaline Phosphatase 72
Vital Signs:
Vital Signs
Temp Pulse Resp BP Pulse Ox
97.7 F 89 18 108/70 100
01/06/24 07:20 01/06/24 09:05 01/06/24 07:20 01/06/24 09:05 01/06/24 07:20
I&O
01/05/24 01/06/24 01/07/24
06:59 06:59 06:59
Intake Total 1730 / 1730 1560 / 1560
Output Total 1130 / 1130 2225 / 2225
Balance 600 / 600 -665 / -665
Review of Systems
-
History Source: Patient
All other systems: Not reviewed unless documented
Physical Exam
-
General: No Apparent Distress
HEENT: Normocephalic and Atraumatic
Respiratory: Clear to Auscultation
Cardiac: Regular Rhythm and S1/S2; Negative Murmur
GI: Soft, Nontender and Nondistended
Neuro: AO x 3
Psych: Calm
Data Reviewed
-
Diagnostic Radiology: Image personally visualized and interpreted and Report Reviewed by me
Labs: Labs Reviewed by me
--- NOTE | 2024-01-06 11:07 | VATNOTE ---
Attempts to restart IV unsuccessful, another VAT nurse to attempt
[2024-01-06 11:10] LABS: Glucose - Point of Care 143 mg/dl (70-99)
[2024-01-06] MEDS: NOVOLOG FLEXPEN SC (11:11)
[2024-01-06 11:25] LABS: % Eosinophils 1.1 % (0-6); % Immature Granulocytes 2.1 % (0-0.5); % Lymphocytes 70.2 % (20.5-51.1); % Monocytes 5.3 % (1.7-9.3); % Neutrophils 21.3 % (42.2-75.2); Absolute Lymphocytes 0.7 10^3/uL (1.2-3.4); Absolute Monocytes 0.1 10^3/uL (0.1-0.6); Absolute Neutrophils 0.2 10^3/uL (1.4-6.5); Nucleated Red Blood Cells % 3.2 % (-)
--- NOTE | 2024-01-06 15:47 | W.PN.ONC2 ---
Today's Communication / Plan
-
Vidaza jewell usually occurs around 15-16 days. He is now day 17.
Would not resume warfarin until plt >40K. His pre-treatment baseline plt ct was 42K.
Next time he could be transfused as outpt would likely be Tuesday 01/09.
He had been requiring PRBC's daily, today's was 2 days since last.
May be best to 01/07 or 01/08 to minimize time until next transfusion until counts start to rebound.
Impression
Impression
Pancytopenia due to high risk MDS poor prognosis 14% blasts, s/p cycle 1 Vidaza 12/20-12/28
Recent GIB, monitor for bleeding
urine culture with GNB
Plan
Plan
Neutropenic precautions. If febrile or develops sxs infection then would panculture and start empiric antibiotics
Transfuse packed RBC for hemoglobin less than 7 or as needed for symptomatic anemia
Transfuse SDP for platelets less than 10 if remains afebrile, if febrile and transfuse platelets less than 20.
Hold warfarin in the setting of severe thrombocytopenia. If any evidence of bleeding would reverse warfarin with FFP and vitamin K, otherwise can let drift down
f/u heme stool
urine culture with GNB -abx per primary service
Outpatient CBC QMon/Thurs for PRN transfusion suport
follow-up with Dr. Cruz for continued EPO and hypomethylating agent support upon discharge
Subjective/Objective
Chief Complaint
High-grade MDS, pancytopenia
Subjective
High-grade MDS currently day 17 of cycle 1 Vidaza. Plt 15K, not bleeding, not febrile. Would like to go home but concerned about possibility of symptomatic anemia recurring before transfusion can be arranged.
Vital Signs:
Vital Signs
Temp Pulse Resp BP Pulse Ox
98.5 F 79 20 110/48 100
01/06/24 15:02 01/06/24 15:02 01/06/24 15:02 01/06/24 15:02 01/06/24 15:02
Lab Results:
Laboratory Data
WBC 0.9 10^3/uL (4.8-10.8) L* 01/06/24 08:42
Hgb 6.8 g/dL (13.0-18.0) L* 01/06/24 08:42
Plt Count 15 10^3/uL (130-400) L* D 01/06/24 08:42
PT 27.0 Sec (11.4-14.6) H 01/06/24 08:42
INR 2.52 01/06/24 08:42
APTT 49.9 Sec (23.4-35.0) H 01/06/24 08:42
eGFR 40.75 01/06/24 08:42
Physical Exam
HEENT: Moist Mucous Membranes; No Jaundice
Cardiology: Normal Sinus Rhythm, S1 and S2
Pulmonary: Clear; No Wheezes
GI: Soft and Normal Bowel Sounds
Extremities: No C/C/E
Neuro: Non Focal
Review of Systems
Review of Systems
Constitutional: Denies Fever or Fatigue
Head: Denies Sore Throat or Hearing Loss
Respiratory: Reports Dyspnea; Denies Cough
Cardiovascular: Denies Chest Pain or Palpitations
Gastrointestinal: Denies Nausea/Vomiting or Diarrhea
Genitourinary: Denies Hematuria
Skin: Denies Rash or Pruritis
Neurological: Denies Headache or Numbness
Psychiatric: Denies Depression or Insomnia
[2024-01-06 16:47] LABS: Glucose - Point of Care 97 mg/dl (70-99)
[2024-01-06] MEDS: NOVOLOG FLEXPEN 8 UNITS SC (17:11)
[2024-01-06 18:07] LABS: Hematocrit 21.9 % (39.0-52.0); Hemoglobin 7.7 g/dL (13.0-18.0); Mean Corp Hgb Conc. 35.2 g/dL (33.0-37.0); Mean Corpuscular Hgb 30.8 pg (27.0-31.0); Mean Corpuscular Volume 87.6 fL (80.0-94.0); Platelet Count 14 10^3/uL (130-400); Red Cell Dist. Width 16.9 % (11.5-14.5)
[2024-01-06 21:20] LABS: Glucose - Point of Care 118 mg/dl (70-99)
[2024-01-06] MEDS: MELATONIN 5 MG PO (21:50)
[2024-01-06] MEDS: LANTUS 0.28 UNITS SC (21:50)
[2024-01-07 06:47] LABS: Hematocrit 21.1 % (39.0-52.0); Hemoglobin 7.4 g/dL (13.0-18.0); Mean Corp Hgb Conc. 35.1 g/dL (33.0-37.0); Mean Corpuscular Hgb 30.5 pg (27.0-31.0); Mean Corpuscular Volume 86.8 fL (80.0-94.0); Platelet Count 12 10^3/uL (130-400); Red Blood Cell Count 2.43 10^6/uL (4.70-6.10); Red Cell Dist. Width 16.9 % (11.5-14.5); White Blood Cell Count 0.9 10^3/uL (4.8-10.8)
[2024-01-07 06:59] LABS: ALT (SGPT) 15 U/L (0-50); AST (SGOT) 21 U/L (17-59); Albumin 3.2 g/dl (3.5-5.0); Alkaline Phosphatase 74 U/L (38-126); Blood Urea Nitrogen 45 mg/dl (9-20); Calcium 8.8 mg/dl (8.4-10.2); Carbon Dioxide 23 mmol/L (22-30); Chloride 110 mmol/L (98-107); Estimated Creatinine Clearance 39 ml/min; Glucose 142 mg/dl (70-99); Potassium 4.6 mmol/L (3.5-5.1); Sodium 141 mmol/L (135-145); Total Bilirubin 1.2 mg/dl (0.2-1.3); Total Protein 5.5 g/dl (6.3-8.2); eGFR 40.75
[2024-01-07 07:10] VITALS: BP 132/74
[2024-01-07 07:34] LABS: Glucose - Point of Care 138 mg/dl (70-99)
[2024-01-07 07:47] LABS: % Eosinophils 2.3 % (0-6); % Lymphocytes 73.6 % (20.5-51.1); % Monocytes 9.2 % (1.7-9.3); % Neutrophils 14.9 % (42.2-75.2); Absolute Lymphocytes 0.6 10^3/uL (1.2-3.4); Absolute Monocytes 0.1 10^3/uL (0.1-0.6); Absolute Neutrophils 0.1 10^3/uL (1.4-6.5); Nucleated Red Blood Cells % 2.3 % (-)
[2024-01-07] MEDS: NOVOLOG FLEXPEN 6 UNITS SC ×2 (08:36→11:48)
[2024-01-07] MEDS: TOPROL XL 25 MG PO (08:37)
[2024-01-07] MEDS: PROTONIX 40 MG PO (08:37)
--- NOTE | 2024-01-07 10:55 | W.PN.HOSP.TC ---
Today's Communication/Plan
-
monitor cbc, inr - transfuse as necessary
Assessment / Plan
Assessment / Plan
Physical Exam
General: Well Developed and Well Nourished
HEENT: NormoCephalic
Respiratory: Clear
Cardiac: S1/S2
GI: Soft
Musculoskeletal: No Clubbing
Skin: Warm and Dry
Neuro: Awake, Alert, Oriented and AO x 3
Hematologic/Lymphatic: No Lymphadenopathy
Psych: Calm
78-year-old male with recent history of GI bleed, MDS recently diagnosed now presents for weakness. Found to be pancytopenic.
PLAN:
# Symptomatic anemia
#Pancytopenia
#Myelodysplastic syndrome
-Transfused 4 unit PRBC total including today; 1 unit platelet;
� No evidence of active GI bleed at this time, cont to monitor
� Held Coumadin as supratherapeutic INR, and thrombocytopenic; await heme recs for restarting coumadin - will hold until plt >40K
- cont PPI
� �can consider reversal with vitamin K and FFP if blood loss
-GI consulted for black stool: NTD; also refuses endoscopy - no further events
� Monitor coags
� Hematology consulted
� Trend CBC, maintain hgb goal >7 and Platelets >10k or 20k if fever ; >50k if bleeding
- Neutropenic precautions. If febrile or develops sxs infection then would panculture and start empiric antibiotics
-Transfuse SDP for platelets less than 10 if remains afebrile, if febrile and transfuse platelets less than 20.
-Outpatient CBC QMon/Thurs for PRN transfusion support
-follow-up with Dr. Cruz for continued EPO and hypomethylating agent support upon discharge
-Next time he could be transfused as outpt would likely be Tuesday 01/09
#CKD3b
� Stable
# Continue to monitor
#DM2
� Continue insulin dosing
-Sliding scale
#h/o bladder cancer and resection with urostomy
-clear urine in bag
#Asymptomatic bacteruria
-no fever, nor symptoms- will hold on abx unless desired by heme
#Parox afib
-Coumadin on hold as supratherapeutic INR - await heme clearance for restarting
#DVT ppx
- no coumadin with platelts <40k; no scds with platelets <50k
Anticipated Discharge: 24 - 48 hours
Subjective/Interval History
-
Date of Service: January 07, 2024
No acute events overnight
Objective Data
-
Labs:
Laboratory Results
01/07/24
05:54
WBC 0.9 L*
Hgb 7.4 L
Hct 21.1 L
Plt Count 12 L*
Sodium 141
Potassium 4.6
Chloride 110 H
Carbon Dioxide 23
BUN 45 H
Creatinine 1.7 H
Glucose 142 H
Calcium 8.8
Total Bilirubin 1.2
AST 21
ALT 15
Alkaline Phosphatase 74
Vital Signs:
Vital Signs
Temp Pulse Resp BP Pulse Ox
97.7 F 77 16 132/74 100
01/07/24 07:10 01/07/24 07:10 01/07/24 07:10 01/07/24 07:10 01/07/24 07:10
I&O
01/06/24 01/07/24 01/08/24
06:59 06:59 06:59
Intake Total 1560 / 1560 1690 / 1690
Output Total 2225 / 2225 1620 / 1620
Balance -665 / -665 70 / 70
Review of Systems
-
History Source: Patient
All other systems: Not reviewed unless documented
Physical Exam
-
General: No Apparent Distress
HEENT: Normocephalic and Atraumatic
Respiratory: Clear to Auscultation
Cardiac: Regular Rhythm and S1/S2; Negative Murmur
GI: Soft, Nontender and Nondistended
Neuro: AO x 3
Psych: Calm
Data Reviewed
-
Diagnostic Radiology: Image personally visualized and interpreted and Report Reviewed by me
Labs: Labs Reviewed by me
[2024-01-07 11:37] LABS: Glucose - Point of Care 159 mg/dl (70-99)
[2024-01-07 15:20] VITALS: BP 146/68
[2024-01-07 17:15] LABS: Glucose - Point of Care 139 mg/dl (70-99)
[2024-01-07] MEDS: NOVOLOG FLEXPEN 8 UNITS SC (18:14)
[2024-01-07 21:32] LABS: Glucose - Point of Care 154 mg/dl (70-99)
[2024-01-07] MEDS: MELATONIN 5 MG PO (21:35)
[2024-01-07] MEDS: LANTUS 0.28 UNITS SC (21:35)
[2024-01-07 23:40] VITALS: BP 126/61
[2024-01-08 07:15] VITALS: BP 107/71
[2024-01-08 07:22] LABS: Glucose - Point of Care 116 mg/dl (70-99)
[2024-01-08 07:59] LABS: INR 1.56; PT 18.5 Sec (11.4-14.6)
[2024-01-08 08:00] LABS: APTT 37.2 Sec (23.4-35.0)
[2024-01-08] MEDS: TOPROL XL 25 MG PO (08:14)
[2024-01-08] MEDS: PROTONIX 40 MG PO (08:14)
[2024-01-08] MEDS: NOVOLOG FLEXPEN 6 UNITS SC ×2 (08:14→12:04)
[2024-01-08 08:25] LABS: ALT (SGPT) 16 U/L (0-50); AST (SGOT) 26 U/L (17-59); Albumin 3.6 g/dl (3.5-5.0); Alkaline Phosphatase 71 U/L (38-126); Blood Urea Nitrogen 41 mg/dl (9-20); Calcium 8.9 mg/dl (8.4-10.2); Carbon Dioxide 22 mmol/L (22-30); Chloride 109 mmol/L (98-107); Estimated Creatinine Clearance 42 ml/min; Glucose 110 mg/dl (70-99); Potassium 4.9 mmol/L (3.5-5.1); Sodium 140 mmol/L (135-145); Total Bilirubin 1.4 mg/dl (0.2-1.3); eGFR 43.83
[2024-01-08 09:08] LABS: % Basophils 1.1 % (0-2); % Eosinophils 1.1 % (0-6); % Immature Granulocytes 1.1 % (0-0.5); % Monocytes 6.9 % (1.7-9.3); % Neutrophils 12.8 % (42.2-75.2); Absolute Lymphocytes 0.7 10^3/uL (1.2-3.4); Absolute Monocytes 0.1 10^3/uL (0.1-0.6); Absolute Neutrophils 0.1 10^3/uL (1.4-6.5); Hematocrit 23.6 % (39.0-52.0); Mean Corp Hgb Conc. 33.9 g/dL (33.0-37.0); Mean Corpuscular Hgb 30.7 pg (27.0-31.0); Mean Corpuscular Volume 90.4 fL (80.0-94.0); Nucleated Red Blood Cells % 4.6 % (-); Platelet Count 12 10^3/uL (130-400); Red Blood Cell Count 2.61 10^6/uL (4.70-6.10); Red Cell Dist. Width 16.2 % (11.5-14.5); White Blood Cell Count 0.9 10^3/uL (4.8-10.8)
--- NOTE | 2024-01-08 09:38 | W.PN.HOSP.TC ---
Today's Communication/Plan
-
Follow with hematology recommendations
Assessment / Plan
Assessment / Plan
Physical Exam
General: Well Developed and Well Nourished
HEENT: NormoCephalic
Respiratory: Clear
Cardiac: S1/S2
GI: Soft
Musculoskeletal: No Clubbing
Skin: Warm and Dry
Neuro: Awake, Alert, Oriented and AO x 3
Hematologic/Lymphatic: No Lymphadenopathy
Psych: Calm
78-year-old male with recent history of GI bleed, MDS recently diagnosed now presents for weakness. Found to be pancytopenic.
PLAN:
# Symptomatic anemia
#Pancytopenia
#Myelodysplastic syndrome. Per oncology: Pancytopenia due to high risk MDS poor prognosis 14% blasts, s/p cycle 1 Vidaza 12/20-12/28
-Transfused 4 unit PRBC total ; 1 unit platelet;
� No evidence of active GI bleed at this time, cont to monitor
� Held Coumadin as supratherapeutic INR, and thrombocytopenic; await heme recs for restarting Coumadin - will hold until plt >40K
- cont PPI
� �can consider reversal with vitamin K and FFP if blood loss
-GI consulted for black stool: NTD; also refuses endoscopy - no further events
� Monitor coags
� Trend CBC, maintain hgb goal >7 and Platelets >10k or 20k if fever ; >50k if bleeding
- Neutropenic precautions. If febrile or develops sxs infection then would panculture and start empiric antibiotics
-Transfuse SDP for platelets less than 10 if remains afebrile, if febrile and transfuse platelets less than 20.
-Outpatient CBC QMon/Thurs for PRN transfusion support
-follow-up with Dr. Cruz for continued EPO and hypomethylating agent support upon discharge
-Next time he could be transfused as outpt would likely be Tuesday 01/09
#CKD3b
� Stable
# Continue to monitor
#DM2
� Continue insulin dosing
-Sliding scale
#h/o bladder cancer and resection with urostomy
-clear urine in bag
#Asymptomatic bacteruria
-no fever, nor symptoms- will hold on abx unless desired by heme
#Parox afib
-Coumadin on hold as supratherapeutic INR - await heme clearance for restarting
#DVT ppx
- no Coumadin with platelts <40k; no scds with platelets <50k
Total time spent to see the patient, examine the patient on the floor, review data and lab results, discuss the treatment plan with the patient, nursing staff around 55 minutes
Anticipated Discharge: > 48 hours
Subjective/Interval History
-
Date of Service: January 08, 2024
No chest pain
No sob
No fevers
Objective Data
-
Labs:
Laboratory Results
01/08/24
06:37
WBC 0.9 L*
Hgb 8.0 L
Hct 23.6 L
Plt Count 12 L*
PT 18.5 H
INR 1.56
APTT 37.2 H
Sodium 140
Potassium 4.9
Chloride 109 H
Carbon Dioxide 22
BUN 41 H
Creatinine 1.6 H
Glucose 110 H
Calcium 8.9
Total Bilirubin 1.4 H
AST 26
ALT 16
Alkaline Phosphatase 71
Vital Signs:
Vital Signs
Temp Pulse Resp BP Pulse Ox
97.6 F 79 16 107/71 100
01/08/24 07:15 01/08/24 07:15 01/08/24 07:15 01/08/24 07:15 01/08/24 07:15
I&O
01/07/24 01/08/24 01/09/24
06:59 06:59 06:59
Intake Total 1690 / 1690 1560 / 1560
Output Total 1620 / 1620 1625 / 1625
Balance 70 / 70 -65 / -65
[2024-01-08 11:55] LABS: Glucose - Point of Care 124 mg/dl (70-99)
[2024-01-08] MEDS: ZOFRAN 4 MG PO (12:32)
[2024-01-08 15:15] VITALS: BP 119/58
--- NOTE | 2024-01-08 15:41 | W.PN.ONC2 ---
Today's Communication / Plan
-
Hgb improving and Plt stable without bleeding.
Case d/w Dr. Briceno, pt needs rehab before going home.
If going to SNF for rehab, suggest consideration of prophylactic Levaquin 500 mg daily until ANC >500.
Impression
Impression
Pancytopenia due to high risk MDS poor prognosis 14% blasts, s/p cycle 1 Vidaza 12/20-12/28
Recent GIB, monitor for bleeding
urine culture with GNB
Plan
Plan
Neutropenic precautions. If febrile or develops sxs infection then would panculture and start empiric antibiotics
Transfuse packed RBC for hemoglobin less than 7 or as needed for symptomatic anemia
Transfuse SDP for platelets less than 10 if remains afebrile, if febrile and transfuse platelets less than 20.
Hold warfarin in the setting of severe thrombocytopenia. If any evidence of bleeding would reverse warfarin with FFP and vitamin K, otherwise can let drift down
Outpatient CBC QMon/Thurs for PRN transfusion suport
follow-up with Dr. Cruz for continued EPO and hypomethylating agent support upon discharge
Subjective/Objective
Chief Complaint
MDS s/p Vidaza
Subjective
Denies bleeding, fever. Would really like to be d/c'd.
Vital Signs:
Vital Signs
Temp Pulse Resp BP Pulse Ox
99.2 F 87 16 119/58 100
01/08/24 15:15 01/08/24 15:15 01/08/24 15:15 01/08/24 15:15 01/08/24 15:15
Lab Results:
Laboratory Data
WBC 0.9 10^3/uL (4.8-10.8) L* 01/08/24 06:37
Hgb 8.0 g/dL (13.0-18.0) L 01/08/24 06:37
Plt Count 12 10^3/uL (130-400) L* 01/08/24 06:37
PT 18.5 Sec (11.4-14.6) H 01/08/24 06:37
INR 1.56 01/08/24 06:37
APTT 37.2 Sec (23.4-35.0) H 01/08/24 06:37
eGFR 43.83 01/08/24 06:37
Physical Exam
Awake, alert, non-toxic appearing
[2024-01-08] MEDS: NOVOLOG FLEXPEN 8 UNITS SC (18:06)
[2024-01-08 21:11] LABS: Glucose - Point of Care 222 mg/dl (70-99)
[2024-01-08] MEDS: LANTUS 0.28 UNITS SC (21:17)
[2024-01-08] MEDS: MELATONIN 5 MG PO (21:18)
[2024-01-08 23:15] VITALS: BP 119/74
[2024-01-09 00:16] VITALS: BMI 27.7
[2024-01-09 07:15] VITALS: BP 121/65
[2024-01-09 07:32] LABS: Glucose - Point of Care 70 mg/dl (70-99)
--- NOTE | 2024-01-09 08:40 | W.PN.ONC2 ---
Today's Communication / Plan
-
Optimize performance status
If pt is discharged today, would give 1 SDP prior to d/c
If going to SNF for rehab, suggest consideration of prophylactic Levaquin 500 mg daily until ANC >500.
Impression
Impression
Pancytopenia due to high risk MDS poor prognosis 14% blasts, s/p cycle 1 Vidaza 12/20-12/28
Recent GIB, monitor for bleeding
urine culture with GNB
Plan
Plan
Neutropenic precautions. If febrile or develops sxs infection then would panculture and start empiric antibiotics
Transfuse packed RBC for hemoglobin less than 7 or as needed for symptomatic anemia
Transfuse SDP for platelets less than 10 if remains afebrile, if febrile and transfuse platelets less than 20.
Hold warfarin in the setting of severe thrombocytopenia. If any evidence of bleeding would reverse warfarin with FFP and vitamin K, otherwise can let drift down
Outpatient CBC QMon/Thurs for PRN transfusion suport
follow-up with Dr. Cruz for continued EPO and hypomethylating agent support upon discharge
Subjective/Objective
Chief Complaint
afebrile, no hypoxia or hypotension
remains expectantly pancytopenic
Subjective
no new complaints
at bedside
Vital Signs:
Vital Signs
Temp Pulse Resp BP Pulse Ox
98.2 F 94 18 121/65 100
01/09/24 07:15 01/09/24 07:15 01/09/24 07:15 01/09/24 07:15 01/09/24 07:15
Lab Results:
Laboratory Data
WBC 0.9 10^3/uL (4.8-10.8) L* 01/08/24 06:37
Hgb 8.0 g/dL (13.0-18.0) L 01/08/24 06:37
Plt Count 12 10^3/uL (130-400) L* 01/08/24 06:37
PT 18.5 Sec (11.4-14.6) H 01/08/24 06:37
INR 1.56 01/08/24 06:37
APTT 37.2 Sec (23.4-35.0) H 01/08/24 06:37
eGFR 43.83 01/08/24 06:37
Physical Exam
General: Cooperative, no acute distress
Eyes: sclerae anicteric
ENT: buccal mucosa moist
Neck: trachea midline
Lymph: No cervical, supraclavicular, axillary adenopathy
CV: normal S1, S2
Lungs: Good aeration bilaterally, no wheezing or rhonchi
Abdomen: Soft, nontender, ileal conduit/urostomy
Extrem: No edema,
Neuro: Alert, oriented, speech clear
Skin: Normal turgor, no rash on exposed areas
Review of Systems
Review of Systems
ROS notable for subjective, otherwise negative
--- NOTE | 2024-01-09 08:53 | W.PN.HOSP.TC ---
Addendum entered and electronically signed by Donn Briceno MD 01/09/24 15:41:
Addendum
d/w Dr Frederick, no transfusion given today, ok to dc and do OP follow up
Also d/w the dc instructions
Total discharge time spent to see the patient, examine the patient on the floor, review data and lab results, discuss the discharge plan with the patient, , oncologist, nursing staff around 69 minutes
Addendum entered and electronically signed by Donn Briceno MD 01/09/24 14:54:
Addendum
Patient requires wheelchair within his home to complete his daily activities. Patient requires transport chair within his home to complete his daily activity. Patient is unable to self propel. Patient has caregiver to propel him.
End
Addendum entered and electronically signed by Donn Briceno MD 01/09/24 11:44:
Anemia is related to/associated with/exacerbated by Coumadin.
Original Note:
Today's Communication/Plan
-
dc
pt refuses SNF
Assessment / Plan
Assessment / Plan
Physical Exam
General: Well Developed and Well Nourished
HEENT: NormoCephalic
Respiratory: Clear
Cardiac: S1/S2
GI: Soft
Musculoskeletal: No Clubbing
Skin: Warm and Dry
Neuro: Awake, Alert, Oriented and AO x 3
Hematologic/Lymphatic: No Lymphadenopathy
Psych: Calm
78-year-old male with recent history of GI bleed, MDS recently diagnosed now presents for weakness. Found to be pancytopenic.
PLAN:
# Symptomatic anemia
#Pancytopenia
#Myelodysplastic syndrome. Per oncology: Pancytopenia due to high risk MDS poor prognosis 14% blasts, s/p cycle 1 Vidaza 12/20-12/28
-Transfused 4 unit PRBC total ; 1 unit platelet;
� No evidence of active GI bleed at this time, cont to monitor
� Held Coumadin as supratherapeutic INR, and thrombocytopenic; await heme recs for restarting Coumadin - will hold until plt >40K
- cont PPI
� �can consider reversal with vitamin K and FFP if blood loss
-GI consulted for black stool: NTD; also refuses endoscopy - no further events
� Monitor coags
� Trend CBC, maintain hgb goal >7 and Platelets >10k or 20k if fever ; >50k if bleeding
- Neutropenic precautions. If febrile or develops sxs infection then would panculture and start empiric antibiotics
-Transfuse SDP for platelets less than 10 if remains afebrile, if febrile and transfuse platelets less than 20.
-Outpatient CBC QMon/Thurs for PRN transfusion support
-follow-up with Dr. Cruz for continued EPO and hypomethylating agent support upon discharge. I d/w oncology, ok to dc
-Next time he could be transfused as outpt would likely be Tuesday 01/09
#CKD3b
� Stable
# Continue to monitor
#DM2
� Continue insulin dosing
-Sliding scale
#h/o bladder cancer and resection with urostomy
-clear urine in bag
#Asymptomatic bacteruria
-no fever, nor symptoms- will hold on abx unless desired by heme
#Parox afib
-Coumadin on hold as supratherapeutic INR - await heme clearance for restarting
#DVT ppx
- no Coumadin with platelts <40k; no scds with platelets <50k
Total discharge time spent to see the patient, examine the patient on the floor, review data and lab results, discuss the discharge plan with the patient, nursing staff around 65 minutes
Anticipated Discharge: Today
Subjective/Interval History
-
Date of Service: January 09, 2024
No complaints
No fevers or chills, no bleeding
Objective Data
-
Labs:
Laboratory Results
01/09/24
07:13
WBC Pending
Hgb Pending
Hct Pending
Plt Count Pending
Sodium Pending
Potassium Pending
Chloride Pending
Carbon Dioxide Pending
BUN Pending
Creatinine Pending
Glucose Pending
Calcium Pending
Total Bilirubin Pending
AST Pending
ALT Pending
Alkaline Phosphatase Pending
Vital Signs:
Vital Signs
Temp Pulse Resp BP Pulse Ox
98.2 F 94 18 121/65 100
01/09/24 07:15 01/09/24 07:15 01/09/24 07:15 01/09/24 07:15 01/09/24 07:15
I&O
01/08/24 01/09/24 01/10/24
06:59 06:59 06:59
Intake Total 1560 / 1560 1080 / 1080
Output Total 1625 / 1625 1999 / 1999
Balance -65 / -65 -920 / -920
[2024-01-09 08:57] LABS: Hematocrit 23.1 % (39.0-52.0); Hemoglobin 7.7 g/dL (13.0-18.0); Mean Corp Hgb Conc. 33.3 g/dL (33.0-37.0); Mean Corpuscular Hgb 29.8 pg (27.0-31.0); Mean Corpuscular Volume 89.5 fL (80.0-94.0); Platelet Count 12 10^3/uL (130-400); Red Blood Cell Count 2.58 10^6/uL (4.70-6.10); Red Cell Dist. Width 16.1 % (11.5-14.5); White Blood Cell Count 0.9 10^3/uL (4.8-10.8)
[2024-01-09 09:14] LABS: ALT (SGPT) 17 U/L (0-50); AST (SGOT) 21 U/L (17-59); Albumin 3.5 g/dl (3.5-5.0); Alkaline Phosphatase 81 U/L (38-126); Blood Urea Nitrogen 36 mg/dl (9-20); Calcium 8.9 mg/dl (8.4-10.2); Carbon Dioxide 23 mmol/L (22-30); Chloride 108 mmol/L (98-107); Estimated Creatinine Clearance 39 ml/min; Glucose 69 mg/dl (70-99); Potassium 4.5 mmol/L (3.5-5.1); Sodium 141 mmol/L (135-145); Total Bilirubin 1.6 mg/dl (0.2-1.3); Total Protein 5.9 g/dl (6.3-8.2); eGFR 40.75
[2024-01-09] MEDS: PROTONIX 40 MG PO (09:14)
[2024-01-09] MEDS: TOPROL XL 25 MG PO (09:15)
[2024-01-09] MEDS: NOVOLOG FLEXPEN SC (09:22)
[2024-01-09 10:14] LABS: % Basophils 1.1 % (0-2); % Eosinophils 2.2 % (0-6); % Immature Granulocytes 1.1 % (0-0.5); % Lymphocytes 74.4 % (20.5-51.1); % Monocytes 11.1 % (1.7-9.3); % Neutrophils 10.1 % (42.2-75.2); Absolute Lymphocytes 0.7 10^3/uL (1.2-3.4); Absolute Monocytes 0.1 10^3/uL (0.1-0.6); Absolute Neutrophils 0.1 10^3/uL (1.4-6.5); Nucleated Red Blood Cells % 3.3 % (-)
[2024-01-09 12:16] LABS: Glucose - Point of Care 158 mg/dl (70-99)
[2024-01-09] MEDS: DULCOLAX 10 MG PO (12:22)
--- NOTE | 2024-01-09 12:55 | CM ---
IMM explained & signed by patient. Placed in chart.
Seen patient at bedside with .
Discussed SNF as recommended by PT. Patient declines.
Wants to go home with [facility].
Notified liaison [facility] of discharge today.
PT to see patient today.
Patient to transport home. Declined w/c van.
PLAN: Discharge to home with [facility].
to transport home.
[2024-01-09] MEDS: NOVOLOG FLEXPEN 6 UNITS SC (13:25)
--- NOTE | 2024-01-09 14:40 | W.DCSUMMARY ---
Discharge Summary
Discharge Data
Date of Admission: 01/03/24
Date of Discharge: 01/09/24
-
Pending Results: No
Hospital Course
78 years old male presented with weakness and failure to thrive. He reported ambulatory dysfunction. Patient had history of myelodysplastic syndrome. He was receiving transfusion in the outpatient office. Primary oncologist is Dr. Cruz.
Patient was diagnosed with symptomatic anemia and positive cytopenia secondary to myelodysplastic syndrome. Hemoglobin was 5.8. Platelet count was 8. He received blood transfusion and platelet transfusion. His Coumadin was held due to severe
thrombocytopenia with history of gastrointestinal bleeding. Patient denied recent black/red stools. INR on admission was 3.6. Hemoglobin stabilized around 7.7 upon discharge with platelet around 12. No active bleeding. Patient was evaluated by
physical therapy and recommended short-term rehab but patient declined. Patient showed improvement with physical therapy and was able to ambulate with mild assistance. Patient was discharged home with home care services. He did not have fever or
chills. He remained hemodynamically stable and was discharged in a stable condition.
Discharge Plan
-
Patient Disposition: Home with Home Care
Discharge Diagnosis/Procedures: Pancytopenia due to high risk MDS
Diet: As tolerated
Referrals:
Iram Cruz, DO [Active] - in less than 1 week
Raphael Lam MD [Family Provider] -
Prescriptions:
Continued
acetaminophen 650 mg Tablet Extended Release
650 mg PO Q8HPRN PRN (Reason: mild pain)
insulin aspart U-100 [Novolog FlexPen U-100 Insulin] 100 unit/mL (3 mL) Insulin Pen
8 unit SC QPM
insulin aspart U-100 [Novolog FlexPen U-100 Insulin] 300 UNITS/3 ML insulin pen
6 units SC BID@0800,1200
omeprazole 40 mg Capsule,Delayed Release(Dr/Ec)
40 mg PO BID
melatonin 5 mg Tablet
5 mg PO HS
polyethylene glycol 3350 [Miralax] 17 gram Powder In Packet
17 g PO DAILYPRN PRN (Reason: constipation)
metoprolol succinate [Toprol XL] 25 mg Tablet Extended Release 24 Hr
25 mg PO DAILY
insulin degludec 100 unit/mL (3 mL) Insulin Pen
28 unit SC HS
ondansetron 8 mg Tablet,Disintegrating
8 mg PO Q8HPRN PRN (Reason: nausea)
Discontinued
warfarin 5 mg tablet
5 mg PO SUMOTUWESA@1900
warfarin [Jantoven] 5 MG tablet
10 mg PO THFR@1900
Discharge Orders:
Discharge Patient (As Directed); Ordered 01/09/24
Ordered By: Donn Briceno
Discharge Date and Time
Print Language: LITHUANIAN
--- NOTE | 2024-01-09 15:16 | VNURNOTE ---
Home health liaison spoke with Mirza on the phone about [facility] services, visit scheduling/frequency, homebound status. Mirza states her recently had [facility] services and understands home visits will be 1-2 times a week to assess and teach
medical management. aware a visiting nurse will contact them for start of care within 1-2 days after discharge from . [facility] Referral completed in care port. also made aware paperwork was faxed to [facility] for a transport
wheelchair for medical appointments.
[2024-01-09 15:21] VITALS: BP 126/62
--- NOTE | 2024-01-09 15:25 | PTCARENOTE ---
D/C paperwork reviewed with pt and . Iv pulled
== END 2024-01-09 16:09 | disposition home health service (06) | DRG 813 ==
LOC: 2 NORTH 15:23
PROVIDERS: Nurse Practitioner Gerontology; Physician Assistant; ADMITTING PHYSICIAN Internal Medicine; ATTENDING PHYSICIAN Internal Medicine; CONSULT PHYSICIAN Internal Medicine Gastroenterology; EMERGENCY PHYSICIAN Emergency Medicine; FAMILY PHYSICIAN Internal Medicine; OTHER PHYSICIAN Internal Medicine Hematology & Oncology
PROC: 30233R1 Transfusion of Nonautologous Platelets into Peripheral Vein, Percutaneous Approach (ICD-10-PCS; 2024-01-03)
PROC: 30233N1 Transfusion of Nonautologous Red Blood Cells into Peripheral Vein, Percutaneous Approach (ICD-10-PCS; 2024-01-03)
DX: D68.32 Hemorrhagic disorder due to extrinsic circulating anticoagulants (principal); D61.818 Other pancytopenia; I48.21 Permanent atrial fibrillation; K92.1 Melena; D46.9 Myelodysplastic syndrome, unspecified; R53.1 Weakness; N18.32 Chronic kidney disease, stage 3b; E11.22 Type 2 diabetes mellitus with diabetic chronic kidney disease; E78.00 Pure hypercholesterolemia, unspecified; I12.9 Hypertensive chronic kidney disease with stage 1 through stage 4 chronic kidney disease, or unspecified chronic kidney disease; K21.9 Gastro-esophageal reflux disease without esophagitis; E11.40 Type 2 diabetes mellitus with diabetic neuropathy, unspecified; D69.59 Other secondary thrombocytopenia; R82.71 Bacteriuria; J44.9 Chronic obstructive pulmonary disease, unspecified; R62.7 Adult failure to thrive; R26.2 Difficulty in walking, not elsewhere classified; M19.90 Unspecified osteoarthritis, unspecified site; Z79.01 Long term (current) use of anticoagulants; Z87.891 Personal history of nicotine dependence; Z85.51 Personal history of malignant neoplasm of bladder; Z87.19 Personal history of other diseases of the digestive system; Z79.4 Long term (current) use of insulin; Z92.3 Personal history of irradiation; Z92.21 Personal history of antineoplastic chemotherapy; Z80.0 Family history of malignant neoplasm of digestive organs; Z82.3 Family history of stroke; Z88.1 Allergy status to other antibiotic agents; Z88.2 Allergy status to sulfonamides; Z11.52 Encounter for screening for COVID-19
CPT/HCPCS: 36430; 80053; 81003; 81015; 82962; 85025; 85027; 85610; 85730; 86850; 86900; 86901; 86920; 87070; 87077; 87086; 87811; 97116; 97163; 97166; 97535; 99285; P9016; P9073

== ENCOUNTER → 2024-01-11 13:21 | Outpatient (REF) | payer MEDICARE, OTHER, SELFPAY ==
[2024-01-11 16:38] LABS: % Eosinophils 1.2 % (0-6); % Immature Granulocytes 1.2 % (0-0.5); % Lymphocytes 64.2 % (20.5-51.1); % Monocytes 11.1 % (1.7-9.3); % Neutrophils 22.3 % (42.2-75.2); Absolute Lymphocytes 0.5 10^3/uL (1.2-3.4); Absolute Monocytes 0.1 10^3/uL (0.1-0.6); Absolute Neutrophils 0.2 10^3/uL (1.4-6.5); Hematocrit 21.4 % (39.0-52.0); Hemoglobin 7.4 g/dL (13.0-18.0); Mean Corp Hgb Conc. 34.6 g/dL (33.0-37.0); Mean Corpuscular Hgb 30.1 pg (27.0-31.0); Nucleated Red Blood Cells % 3.7 % (-); Platelet Count 23 10^3/uL (130-400); Red Blood Cell Count 2.46 10^6/uL (4.70-6.10); Red Cell Dist. Width 16.7 % (11.5-14.5); White Blood Cell Count 0.8 10^3/uL (4.8-10.8)
== END ==
LOC: REG 13:21
PROVIDERS: ATTENDING PHYSICIAN Internal Medicine Hematology & Oncology; FAMILY PHYSICIAN Internal Medicine
DX: R79.9 Abnormal finding of blood chemistry, unspecified (principal); R53.83 Other fatigue; D64.9 Anemia, unspecified; R53.1 Weakness; R06.00 Dyspnea, unspecified; C94.6 Myelodysplastic disease, not elsewhere classified
CPT/HCPCS: 36415; 85025; 86850; 86900; 86901; 87040

== ENCOUNTER 2024-01-23 15:52 | Inpatient (IN) | payer MEDICARE, OTHER, SELFPAY ==
[2024-01-23] VITALS (11 sets, daily range): BP systolic 95–143; BP diastolic 54–103; BMI 26.6; BMI 25.5
[2024-01-23 13:44] LABS: Hematocrit 24.6 % (39.0-52.0); Hemoglobin 8.2 g/dL (13.0-18.0); Mean Corp Hgb Conc. 33.3 g/dL (33.0-37.0); Mean Corpuscular Hgb 30.1 pg (27.0-31.0); Mean Corpuscular Volume 90.4 fL (80.0-94.0); Red Blood Cell Count 2.72 10^6/uL (4.70-6.10); White Blood Cell Count 0.5 10^3/uL (4.8-10.8)
[2024-01-23 13:47] LABS: INR 1.52; PT 18.1 Sec (11.4-14.6)
--- NOTE | 2024-01-23 13:48 | ED.GENMED ---
History of Present Illness
General
Chief Complaint: Weakness
Source: patient and spouse
Time Seen by Provider: 01/23/24 13:50
History of Present Illness
History of Present Illness:
78-year-old male presents to the emergency room for evaluation of extreme weakness and fatigue, poor appetite, chills. 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 He is receiving
treatment for this with his last dose of chemo 2 or 3 days ago. Patient has had previous hospitalizations due to significant anemia with a hemoglobin of 5. has been monitoring the patient's temperature and it has been as high as 100.3.
Past History
Past History
ED Past Medical History: Arrthythmia (Atrial fib), Cancer (Bladder CA), GERD, HTN, Hypercholesterolemia, IDDM and Other (Ulcers, Diverticulitis; cholecystitis, neuropathy, chronic dizziness)
ED Past Surgical History: Appendectomy, Urological (Bladder CA with removal and Ileol conduit) and Other (Ventral hernia)
Social History
Tobacco: Former smoker
Alcohol: Occasional
Drug: None
Personal:
Living: with family
Employment: Retired
Family History
Family History: Other (Noncontributory)
Phy Exam
Physical Exam
Physical Exam:
General: Awake, Alert, Oriented X3. Patient appears chronically ill, cachectic
Vitals: Rectal temp of 103, tachycardic
Head: Atraumatic
Eyes: Pupils equal, EOMI
Throat: Airway intact, no exudates mucosa very dry
Neck: Trachea midline
Lungs: Clear and equal b/l
Heart: Tachycardic, regular rate, no murmurs
Abd: Soft, Nontender, No pulsatile mass. Urostomy noted
Neuro: Nonfocal
Skin: Warm, dry, no rash
Extremities: pulses equal b/l, no edema
Sepsis
Sepsis Screening
Sepsis Assessment: Sepsis
Sepsis Screen
Sepsis Screen: Sepsis
Date: 01/23/24
Time: 20:58
Course
Orders/Labs/Results
Orders:
Orders
01/23/24 12:47
Electrocardiogram (*1) Urgent
Reason for Study: Other
Other Reason for Exam: Possible Sepsis
Cardiac Monitoring- Treatment ONCE
EKG- Treatment ONCE
IV Insert/Care/Rem.- Treatment PRN
O2 Therapy [RESP] Urgent
Titrate/Wean O2 to maintain O2 sat greater than (%): 93
Special Instructions: TO MAINTAIN CONTINUOUS O2 SATS > OR = 93%
Pulse Ox/cont/shift [RESP] Urgent
Quantity: 1
Special Instructions: CONTINUOUS
01/23/24 13:24
Complete Blood Count/With Diff Urgent
Comprehensive Metabolic Panel Urgent
Lactic Acid Urgent
Prothrombin Time Urgent
Blood Culture Urgent
GREGG Source: Blood/Venous
Specimen Description:
01/23/24 13:43
0.9% Sodium Chloride 1000 ml [Nss] 1,000 ml IV BOLUS
Acetaminophen [Tylenol] 650 mg PO NOW STA
01/23/24 13:47
CR Chest - 2 Views Urgent
Comment:
Reason For Exam: fever, weakness
01/23/24 13:53
Cefepime HCl [Maxipime] 2,000 mg IV NOW STA
01/23/24 14:26
Sterile Water [Sterile Water For Injection] 20 ml .ROUTE .STK-MED
01/23/24 Dinner
1800 calorie (15 carb) Diabetic
At Your Request: Full Participation
01/23/24 15:14
Vancomycin [Vancocin] 2,000 mg 0.9% Sodium Chloride 500 ml [Nss] 500 ml IV NOW
01/23/24 15:20
Consult Hematology [HEMATOLOGY CONSULT] Routine
Consulting Provider: Shonda Frederick
Was physician already notified: Yes
Reason for consult: Severe pancytopenia MDS, leukemia on chemo sepsis unclear
Consult Infectious Disease [INFECTIOUS DISEASE CONSULT] Urgent
Consulting Provider: Debra Walters
Was physician already notified: Yes
Reason for consult: Severe pancytopenia MDS, leukemia on chemo sepsis unclear
01/23/24 15:33
Urinalysis Urgent
01/23/24 15:34
Admit/Transfer Patient As Directed
Co-Sign Provider:
Level of Care: Inpatient admission
Assign to:: IMU- Intermediate Care
Physician / Group: jalen red
Diagnosis: sepsis unclear neutropenic fever, chemo mds/leukemia, hypotensnio
Reason for Hospitalization: sepsis unclear neutropenic fever, chemo mds/leukemia, hypotensnio
Expected length of stay greater than two midnights?: Yes
ELOS- Estimated Length of Stay in days: 5
I certify the patient meets the requirements for IP care: Yes
COVID-19 Antigen Urgent
Source: Nasal Swab
Blood Culture Urgent
GREGG Source: Blood/Venous
Specimen Description:
Influenza A+B Rapid Molecular Urgent
GREGG Source: Nasal Swab
Specimen Description:
Urine Culture Stat
GREGG Source: Urine
Specimen Description:
Obtained by: Urostomy / Ileal Conduit
Date Specimen was Collected: 01/23/24
Time Specimen was Collected: 15:33
01/23/24 15:36
Code Status As Directed
Resuscitation Status: Do not resuscitate
Reached after discussion with pt or family/Healthcare POA: Yes
Based on pt advanced directive or healthcare POA form: Yes
Decision communicated with: per
DNR Bracelet Application ONCE
01/23/24 15:38
PRN Pain Medication Management As Directed
May give lesser potent ordered pain med per pt: Yes
preference::
Protocol:: Medication orders for pain may be administered in a
manner that supports deferring to patient preference
when the pt is:
- Requesting an ordered lesser potent pain medication.
Least to most potent pain medications are defined
as: acetaminophen < NSAID < tramadol < opioids
(morphine, oxycodone, hydromorphone).
- Requesting a lesser dose of the same medication IF
ORDERED.
- Requesting a less intrusive route of administration
if both routes are prescribed by the provider (PO <
IV).
01/23/24 15:39
0.9% Sodium Chloride 1000 ml [Nss] 1,000 ml IV BOLUS
Precautions As Directed
Type of Precautions: Neutropenic
01/23/24 15:40
Dextrose 50%-Water [Dextrose 50% Syringe] 12.5 grams IV [id number] PRN
Glucagon [GlucaGen] 1 mg IM PRN PRN
Bedside Glucose Monitoring As Directed
Frequency: AC&HS
Additional Instructions:: Change to q6h if pt on TPN, tube feeding or not eating
01/23/24 15:45
Blood Culture Routine
GREGG Source: Blood/Venous
Specimen Description:
01/23/24 16:30
Insulin Aspart Corrective Low [Novolog Flexpen-Low Resistance] See Protocol SC AC
01/23/24 16:51
0.9% Sodium Chloride 1000 ml [Nss] 1,000 ml IV 60 mls/hr
Acetaminophen [Tylenol] 650 mg PO Q4HPRN PRN
Ondansetron Injectable [Zofran] 4 mg IV Q6HPRN PRN
VANCOMYCIN Pharmacy to Dose [VANCOCIN Pharmacy to Dose] 1 each Pharmacy To Prepare [Call Pharmacy To Prepare] 0 ml IV PER PROTOCOL
01/23/24 16:51
Activity As Directed
Activity Level: With Assistance
Intake/ Output As Directed
Frequency: Per unit guidelines
Pneumatic Compression Sleeves As Directed
Type: Knee high
Vital Signs As Directed
Frequency: Per unit guidelines
Weight As Directed
Frequency: Daily
Ot Eval And Treat Routine
Pt Eval And Treat Routine
Activity Level: As Tolerated
DX Deep Vein Thrombosis Video Routine
01/23/24 18:00
Docusate Sodium [Colace] 100 mg PO QPM
01/23/24 20:00
Pantoprazole [Protonix] 40 mg PO BID
01/23/24 22:00
Melatonin 5 mg PO HS
01/24/24 02:00
Cefepime HCl [Maxipime] 2,000 mg IV Q12H
01/24/24 06:00
Complete Blood Count/With Diff IN AM
Comprehensive Metabolic Panel IN AM
Glycohemoglobin (HgbA1c) IN AM
Magnesium IN AM
01/25/24 06:00
Complete Blood Count/With Diff IN AM
Comprehensive Metabolic Panel IN AM
01/26/24 06:00
Complete Blood Count/With Diff IN AM
Comprehensive Metabolic Panel IN AM
01/27/24 06:00
Complete Blood Count/With Diff IN AM
Comprehensive Metabolic Panel IN AM
01/28/24 06:00
Complete Blood Count/With Diff IN AM
Comprehensive Metabolic Panel IN AM
Abnormal Lab Results
01/23/24
13:24
WBC 0.5 L* 10^3/uL
(4.8-10.8)
RBC 2.72 L 10^6/uL
(4.70-6.10)
Hgb 8.2 L g/dL
(13.0-18.0)
Hct 24.6 L %
(39.0-52.0)
RDW 17.0 H %
(11.5-14.5)
Plt Count 23 L* 10^3/uL
(130-400)
MPV 11.3 H fL
(7.4-10.4)
Absolute Neuts (auto) 0.1 L* 10^3/uL
(1.4-6.5)
Absolute Lymphs (auto) 0.3 L 10^3/uL
(1.2-3.4)
Absolute Monos (auto) 0.0 L 10^3/uL
(0.1-0.6)
Neutrophils % 21.3 L %
(42.2-75.2)
Lymphocytes % 70.2 H %
(20.5-51.1)
Basophils % 2.1 H %
(0-2)
PT 18.1 H Sec
(11.4-14.6)
Carbon Dioxide 17 L mmol/L
(22-30)
BUN 53 H mg/dl
(9-20)
Creatinine 2.0 H mg/dL
(0.7-1.3)
Glucose 334 H mg/dl
(70-99)
Lactic Acid 2.8 H mmol/L
(0.7-2.0)
Total Bilirubin 1.7 H mg/dl
(0.2-1.3)
AST 72 H U/L
(17-59)
ALT 52 H U/L
(0-50)
Alkaline Phosphatase 142 H U/L
(38-126)
Total Protein 6.2 L g/dl
(6.3-8.2)
01/23/24 13:24
01/23/24 13:24
Vital Signs
Initial and Last Documented VS:
Initial Vital Signs
Temp Pulse Resp BP Pulse Ox
98.8 F 132 24 131/103 93
01/23/24 12:48 01/23/24 12:48 01/23/24 12:48 01/23/24 12:48 01/23/24 12:48
Last Documented Vital Signs
Temp Pulse Resp BP Pulse Ox
98.3 F 123 29 132/61 99
01/23/24 19:23 01/23/24 20:01 01/23/24 18:42 01/23/24 20:01 01/23/24 16:30
MDM/Problems Addressed
Differential Diagnosis Includes:
Electrolyte abnormality, dehydration, renal failure, infectious process like UTI, pneumonia
MDM/Problems Addressed:
Patient presents with generalized weakness, fatigue and some tremors. Patient was afebrile at home but here rectal temp is quite high at 103. Antibiotics started for neutropenic fever. No obvious source on workup. We had difficulty obtaining a
significant enough urine sample to send for urinalysis and culture and so urine was sent for culture only.
*Radiology
Radiology exam reviewed: preliminary read by ED provider (No acute WI reviewed the chest x-ray)
*Pulse Oximetry
Patient hypoxic: no
*EKG
Interpreted by ED Provider?: Yes
Interpretation: abnormal
Heart Rate: 131
Rate: tachycardiac
Rhythm: a-fib
Flushing: normal axis
Interval: normal interval
QRS Pattern: normal QRS
Ischemia: no ischemia
*Stacking Machine Operator Interpretation
Rate: tachycardiac
Interpretation: abnormal
Rhythm: a-fib
*Critical Care Note
Total Time (30-74mins, 75-104mins- exclusive of procedures): 35 min
comment:
Critical care statement: A total of 40 minutes of critical care time was provided for this patient. This includes management of unstable vital signs, evaluation of the patient at bedside, reviewing the patient's pertinent medical records, discussion
with consultants, review of old EKGs and review of pertinent medical records. This time with separate from time utilized to perform the aforementioned documented procedures
ED Attending Note
-
Portions of this chart may have been created with voice recognition software.� Occasional wrong word or��sound alike� substitutions may have occurred due to the inherent limitations of voice recognition software.
Discharge Plan
Departure
Patient Disposition: Admit
Date of Disposition: 01/23/24
Time of Disposition: 14:26
Admit to: IMU
Presentation/result/management discussed w/ accepting MD/DO: Hospitalist
Condition: Serious
Discharge Problem:
Neutropenic fever
Interventions
Interventions:
*Risk Screen - Suicide Last Done: 01/23/24 12:48
*General Assessment Last Done: 01/23/24 12:48
*Neglect/Abuse Screening Last Done: 01/23/24 12:48
*ED COVID-19 Vaccine History Last Done: 01/23/24 12:48
*Nursing Disposition Last Done: 01/23/24 16:50
ED- Cardiac Assessment Last Done: 01/23/24 13:56
ED- Neurological Assessment Last Done: 01/23/24 13:56
ED- Pulmonary Assessment Last Done: 01/23/24 13:56
Discharge Date and Time
Discharge Date/Time: 01/23/24 16:51
[2024-01-23 13:50] LABS: Lactic Acid 2.8 mmol/L (0.7-2.0)
[2024-01-23] MEDS: NSS 1000 IV ×3 (13:55→17:40)
[2024-01-23 14:08] LABS: % Basophils 2.1 % (0-2); % Lymphocytes 70.2 % (20.5-51.1); % Monocytes 6.4 % (1.7-9.3); % Neutrophils 21.3 % (42.2-75.2); Absolute Lymphocytes 0.3 10^3/uL (1.2-3.4); Absolute Neutrophils 0.1 10^3/uL (1.4-6.5); Nucleated Red Blood Cells % 0 % (-)
[2024-01-23 14:10] LABS: ALT (SGPT) 52 U/L (0-50); AST (SGOT) 72 U/L (17-59); Albumin 3.6 g/dl (3.5-5.0); Alkaline Phosphatase 142 U/L (38-126); Blood Urea Nitrogen 53 mg/dl (9-20); Calcium 9.2 mg/dl (8.4-10.2); Carbon Dioxide 17 mmol/L (22-30); Chloride 101 mmol/L (98-107); Estimated Creatinine Clearance 33 ml/min; Glucose 334 mg/dl (70-99); Potassium 5.1 mmol/L (3.5-5.1); Sodium 135 mmol/L (135-145); Total Bilirubin 1.7 mg/dl (0.2-1.3); Total Protein 6.2 g/dl (6.3-8.2); eGFR 33.53
[2024-01-23 14:12] LABS: Mean Platelet Volume 11.3 fL (7.4-10.4)
[2024-01-23 14:14] LABS: Platelet Count 23 10^3/uL (130-400)
[2024-01-23] MEDS: TYLENOL 650 MG PO (14:24)
[2024-01-23] MEDS: MAXIPIME 2000 MG IV (14:27)
--- NOTE | 2024-01-23 14:56 | HPS.HSE ---
Family Physician
-
Family Physician: Raphael Lam
Chief Complaint
-
Weakness, fatigue, chills, decreased appetite, fever on chemo
History of Present Illness
78-year-old male complaining of extreme weakness, fatigue, chills, decreased appetite, fever 103F. He reports he was recently diagnosed with myelodysplastic syndrome that progressed to leukemia reports he had chemotherapy with Vidaza on 01/17 -
01/19/2024. He was unable to complete the last 5 days due to profound weakness and current symptoms. He had same reaction to this medication in December where he received 1 cycle . He denies headache, sore throat, chest pain, palpitations,
shortness breath, cough, abdominal pain, nausea, vomiting, diarrhea, urinary symptoms from ileal conduit other than slight darker urine. He has past medical history of MDS with severe pancytopenia, CKD 3A/3B, bladder CA, s/p TURBT and Systemic
Chemo 2010 and permanent Ileal Conduit DM2, HTN, insomnia, paroxysmal A-fib, , gastric ulcer, diverticulitis Hx, neuropathy, chronic dizziness, Former smoker.
Medical History
Past Medical History
Past Medical History: Reports Other
Additional Past Medical History:
Permanent Atrial Fibrillation
Hypertension
DM-II
Bladder Cancer s/p TURBT and Systemic Chemo 2010 and permaent Ileal Conduit
GERD
DJD / DDD
COPD
Past Surgical History: Reports Other
Additional Past Surgical History:
Cystectomy / Prostatectomy / Ileal Conduit
Appendectomy
Hernia Repair
Social History
Tobacco: Former Smoker (Quit smoking in 1996 prior day 27 years )
Alcohol: Occasional
Personal:
Living: With Family ( iqra)
Employment: Retired
Family History
Family History: Other (no family hx colon ca, dad FTT, cva, mother sepsis uti no siblings )
Allergies / Home Medications
Allergies reflects when Allergies were last updated in [facility].
Home Medications with original date entered in [facility]
Allergy/Medication List:
Allergies
Allergy/AdvReac Type Severity Reaction Status Date / Time
pollen extracts Allergy SEASONAL-NASAL Verified 11/24/23 12:06
SYMPTOMS
sulfamethoxazole Allergy lip Verified 11/24/23 12:06
[From Bactrim] swelling
tetracycline Allergy Swelling/'penis Verified 11/24/23 12:06
swells up'.
trimethoprim [From Bactrim] Allergy lip Verified 11/24/23 12:06
swelling
Home Medications
acetaminophen 650 mg tablet,extended release 650 mg PO Q8HPRN PRN mild pain 03/15/23
insulin aspart U-100 100 unit/mL (3 mL) subcutaneous pen (Novolog FlexPen U-100 Insulin aspart) 6 units SC BID@0800,1200 Diabetes 03/15/23
insulin aspart U-100 100 unit/mL (3 mL) subcutaneous pen (Novolog FlexPen U-100 Insulin aspart) 8 unit SC QPM Diabetes 03/15/23
omeprazole 40 mg capsule,delayed release 40 mg PO BID Gastrointestinal Issue 05/31/23
melatonin 5 mg tablet 5 mg PO HS sleep 06/05/23
insulin degludec 100 unit/mL (3 mL) subcutaneous pen 28 unit SC HS Diabetes 11/24/23
metoprolol succinate 25 mg tablet,extended release 24 hr (Toprol XL) 25 mg PO DAILY Heart Disease/Condition 11/24/23
ondansetron 8 mg disintegrating tablet 8 mg PO Q8HPRN PRN chemo treatment 01/03/24
docusate sodium 100 mg capsule (Colace) 100 mg PO QPM 01/23/24
docusate sodium 100 mg capsule (Colace) 200 mg PO DAILY 01/23/24
Review of Systems
-
History Source: Patient and Family ()
A 12 point ROS was completed and negative except as noted: Yes
Constitutional: Reports Fever, Fatigue and Chills
EENT: Denies Sore Throat or Runny Nose
Respiratory: Denies Cough or Trouble Breathing
Cardiac: Denies Chest Pain, Diaphoresis, Palpitations or Syncope
Abdomen/GI: Reports Nausea and Vomiting; Denies Abdominal Pain, Diarrhea, Constipated, Bloody Stools, Black Stools or Anorexia
: Reports Other (Ileal conduit putting out slightly darker tinged urine)
Musculoskeletal: Denies Joint Pain or Edema
Skin: Denies Itching or Rash
Neurological: Reports Weakness (Generalized); Denies Dizzy or Headache
Endocrine: Reports No Symptoms
Hematologic/Lymphatic: Reports No Symptoms
Psych: Reports Calm
Physical Exam
Vital Signs
Vital Signs
Temp Pulse Resp BP Pulse Ox
103.2 F H 133 27 104/70 93
01/23/24 13:55 01/23/24 14:30 01/23/24 14:30 01/23/24 14:24 01/23/24 12:48
Physical Exam
General: Conversant and Fever; No Chills
HEENT: NormoCephalic, Anicteric, Moist mucous membranes, PERRLA, No Ptosis and Neck Nontender
Respiratory: Clear; No Wheezes, Rales or Rhonchi
Cardiac: S1/S2 and Regular Rhythm; No Murmur, Rub, Gallop, Peripheral Edema or JVD
Breast: Deferred by me
GI: Soft, Non Tender, Non Distended, Normal Bowel Sounds and No Hepatosplenomegaly
Genito-urinary: Other (Chronic ileal conduit present)
Musculoskeletal: No Clubbing, No Cyanosis and No Edema
Skin: Warm and Dry; No Rash
Neuro: No Motor Deficits, Cranial Nerves Intact, No Sensory Deficits and Other (Lethargic but oriented x 3 to person, place, time, , and history); No Slurred Speech, Facial Droop or Tremors
Psych: Calm
Laboratory Results
-
01/23/24 13:24
01/23/24 13:24
Laboratory Results
PT 18.1 Sec (11.4-14.6) H 01/23/24 13:24
INR 1.52 01/23/24 13:24
Lactic Acid 2.8 mmol/L (0.7-2.0) H 01/23/24 13:24
Total Bilirubin 1.7 mg/dl (0.2-1.3) H 01/23/24 13:24
AST 72 U/L (17-59) H 01/23/24 13:24
ALT 52 U/L (0-50) H 01/23/24 13:24
Alkaline Phosphatase 142 U/L (38-126) H 01/23/24 13:24
Impression/Plan
-
Impression/plan:
Admit to IMU
#Sepsis with history of severe pancytopenia on current chemotherapy
WBC 0.5 absolute neutrophil 0.1
Temp 103.2 F, , lactic acid 2.8
-Blood cultures x 2, [employer] DIRECTOR OF [employer] SALES, COVID pending, CXR
Tylenol as needed
-Neutropenic precautions
-Consult ID
-IV cefepime, IV vancomycin
-Follow CBC, CMP
#Hypotension/HTN�benign
-Will hold metoprolol XL 25 mg daily due to Soft BP 104/70
-Iv nss 60 cc/hr x1 liter
Hr 125 BP improving 130/80's @1900 will give Toprol Xl 25 mg now dose
#Hx MDS/chronic pancytopenia due to high risk MDS poor prognosis 14% blasts on current Chemotherapy
#Chronic anemia
-Status post 1 cycle of Vidaza
WBC 0.5, absolute neutrophil 0.1,
Hgb 8.2, PLT 23
-Recommendation per oncology recent admit for platelet transfusion if febrile plt less than 20, PRBC if Hgb less than 7
-Consult Oncology
type and screen i am
blood consent obtainedby myself , will be scanned by medical records in am. there is a copy on the chart
#VERNA on CKD 3A/3B
Creat 2 average appears 1.6
-Follow BMP
-IV NSS 60 cc an hour x 1 L follow BMP
#Transaminitis likely reactive
Follow CMP
#DM 2 with acute hyperglycemia
BS 334 anion gap 18
Accu-Cheks with SSI low
-Patient typically takes insulin degludec 20 units SQ at bedtime, NovoLog 6 units 08 100, 1200, 8 units every afternoon
#Gastric ulcer Hx/GERD
#Diverticulitis Hx
-Continue omeprazole 40 mg twice daily
Hx bladder cancer with resection/permanent ileal conduit 2010
Monitor urine output
-Follow [employer]
#Paroxysmal A-fib
No rate control meds no blood thinners listed
#Neuropathy hx
Other PMH:
Chronic dizziness
Former smoker
DVT prophylaxis
Plt currently 23 will hold
DNR per patient with at bedside
--- NOTE | 2024-01-23 15:18 | W.PN.UPDATE ---
Update Note
Progress Note Update
This note serves as an addendum to the H&P by powerhouse engineer LAURI Tiffanie ORTIZURGIS
HPI
78M HX chr pancytopenia, Bladdr CA with ileal conduit , A Fib,, HTN, IDDM , HX Diverticulitis, neuropathy, chronic dizziness
evaluation of extreme weakness and fatigue, poor appetite, chills and lightheaded
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
- receiving treatment for this with his last dose of chemo 2 or 3 days ago.
- HX hospitalizations due to significant anemia with a hemoglobin of 5.
Per she has been monitoring the patient's temperature and it has been as high as 100.3.
PHX; as above
Reviewed VS: T102.3 ST 133 104/70 RR27
PE
Gen: Not toxic looking . Looks tired
HEENT: anicteric
Neck: supple
Lungs: symmetric AE, clear
Cor: ST
Abdomen: benign with ileal conduit with darker colored urine in bag
CONVERTIBLE SOFA BEDSPRING TESTER: AAO3
MS: no edema
Psych: apporpaite
Data
WCC 0.5 ANC 106 - baseline 1.0
Hgb 8.2 - Baseline is mid 7s
Plt 23
CO2 17
BUN 53
Cr 2.0 - baseline 1.7
eGFR 33- baseline is 40 c/w CKD3a/b
LA 2.8
TB 1.7 - basliene
AST 72
ALT 52
AKP 142
NEG Covid
My view on CXR : NEG
Last hospitalist admission: Date of Admission: 01/03/24 -Date of Discharge: 01/09/24
PDX: Pancytopenia due to high risk MDS
ASSESSMENT & PLAN
Pending Rx reconciliation
Neutropenic fever unclear origin s/p 2 days of chemo ( 01/17 and 01/18 Vidaza)
ANC 106
HX recently diagnosed with MDS which has evidently progressed to leukemia.
Underlying baseline severe chronic pancytopenia
Chr total hyperbilirubinemia
No active bleeding
- BCx sent
- cont. IV CFP and vancomycin
- Blood Tx if Hgb is less than 7, Plt is less than 23
- ID and Heme consult
HX CKD3b
Stable
- Observe Cr
IDDM
- cont. KEY ACCOUNT DIRECTOR basal bolus insulin
- add ISS low
HX bladder cancer and resection with urostomy
- clear urine in bag
HX Prox AF
- Not on blood thinner due to pancytopenia
DVT Px: Platelet 23
Code: Full code
IMU
[2024-01-23 16:04] LABS: COVID-19 Antigen Negative (Negative)
--- NOTE | 2024-01-23 16:18 | CON.ONC ---
Impression
Impression
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
Recent GIB, monitor for bleeding
neutropenic fever
Plan
Plan
Neutropenic precautions. Daily GCSF in setting of severe neutropenia and febrile illness. Benefit of GCSF outweighs risk.
Follow up ID consult. Follow cultures. Check C.diff and stool culture if develops diarrhea. On broad spectum IV abx
Transfuse packed RBC for hemoglobin less than 8 or as needed for symptomatic anemia
Transfuse SDP if platelets <20 in setting of neutropenic fever, <50 prn bleeding. Check DIC panel
continue to hold anticoagulation the setting of severe thrombocytopenia
follow-up with Dr. Cruz for continued EPO and hypomethylating agent support upon discharge
Patient History
History of Present Illness
78 yo M known to Dr. Cruz for management of MDS/AML who presented to ED with neutropenic fever. 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 He is receiving hypomethylating agent, s/p C2D2 01/21 with short acting filgrastim
01/18 and darbepoetin 01/17. He did not come to his scheduled treatment 01/21 or today due to fatigue, weakness, and poor appetite. He was advised yesterday to proceed to the ER for further evaluation of neutropenic fever for further evaluation and
treatment, however, he refused. His was able to convince him to have ER evaluation today. Initial evaluation notable for WBC 0.5, ANC 0.1, Hgb 8.2g/dL, platelet count 23,000, INR 1.52, BUN 53, Creatinine 2, Tbili 1.7, AST 72, ALT 52, Alk phos
142. He is COVID and influenza negative, cxr shows no acute cardiopulmonary process, and blood cultures are pending. Denies overt bleeding.
He has been admitted for management of neutropenic fever, started on empiric IV abx with consultation requests for infectious disease and medical oncology.
Clinically, he reports fatigue, weakness, chronic dry cough, and diarrhea alternating with constipation. He denies SOB at rest, mouth sores, dental issues, nausea, vomiting, sick contacts.
Tmax 103.2F, BP soft 95/82, tachycardia, no hypoxia
Past-Medical/Surgical History
PMH bladder cancer 2010 s/p chemo radiation and bladder resection with permanent Ileal Conduit (tx'ed at [facility], not aware of chemo received), prostatectomy , Permanent afib on coumadin, HTN, DM, copd/ild, CKD
PSH radical�cystectomy/prostatectomy appendectomy hernia�repair Cholecystectomy
Social: , retired, former smoker. Denies significant ETOH. Denies recreational drugs.
Family uncle with colon cancer
Patient Medication
�Medication �Instructions �Recorded �Confirmed �Last Taken �Type
acetaminophen 650 mg 650 mg PO Q8HPRN PRN mild pain 03/15/23 01/23/24 01/22/24 History
tablet,extended release
insulin aspart U-100 100 unit/mL 6 units SC BID@0800,1200 Diabetes 03/15/23 01/23/24 01/03/24 History
(3 mL) subcutaneous pen (Novolog
FlexPen U-100 Insulin aspart)
insulin aspart U-100 100 unit/mL 8 unit SC QPM Diabetes 03/15/23 01/23/24 01/02/24 History
(3 mL) subcutaneous pen (Novolog
FlexPen U-100 Insulin aspart)
omeprazole 40 mg capsule,delayed 40 mg PO BID Gastrointestinal Issue 05/31/23 01/23/24 01/23/24 History
release
melatonin 5 mg tablet 5 mg PO HS sleep 06/05/23 01/23/24 01/22/24 History
insulin degludec 100 unit/mL (3 28 unit SC HS Diabetes 11/24/23 01/23/24 01/02/24 History
mL) subcutaneous pen
metoprolol succinate 25 mg 25 mg PO DAILY Heart 11/24/23 01/23/24 01/23/24 History
tablet,extended release 24 hr Disease/Condition
(Toprol XL)
ondansetron 8 mg disintegrating 8 mg PO Q8HPRN PRN chemo treatment 01/03/24 01/23/24 01/18/24 History
tablet
docusate sodium 100 mg capsule 100 mg PO QPM 01/23/24 01/23/24 Unknown History
(Colace)
docusate sodium 100 mg capsule 200 mg PO DAILY 01/23/24 01/23/24 Unknown History
(Colace)
Active Medications
Generic Name Dose Route Start Last Admin
Trade Name Freq PRN Reason Stop Dose Admin
Dextrose 12.5 grams 01/23/24 15:40
Dextrose 50% (0.5 Grams/Ml) 50 Ml Syringe IV 02/20/24 15:39
[id number] PRN
hypoglycemia
Protocol
Glucagon 1 mg 01/23/24 15:40
Glucagon 1 Mg Vial IM 02/20/24 15:39
PRN PRN
hypoglycemia
Protocol
Vancomycin HCl 1 each/ Device 0 mls @ 0 mls/hr 01/23/24 14:00
IV
PER PROTOCOL LYSSA
As Directed
Vancomycin HCl 2,000 mg/ 540 mls @ 270 mls/hr 01/23/24 15:14
Sodium Chloride IV 01/23/24 17:13
NOW STA
Sodium Chloride 1,000 mls @ 1,000 mls/hr 01/23/24 15:39
Nss IV 01/23/24 16:38
BOLUS ONE
Insulin Aspart 0 units 01/23/24 16:30
Insulin Aspart Low Resistance 300 Units/3 Ml Pen.Injctr SC 02/20/24 16:29
AC LYSSA
Protocol
Review of Systems
-
ROS notable for HPI, otherwise negative
Physical Exam
-
General: Appears Chronically Ill
HEENT: Moist Mucous Membranes and Other (poor dentition); Negative Jaundice
Cardiology: S1 and S2
Pulmonary: Clear
GI: Soft
Genito-Urinary: Other (Chronic ileal conduit )
Extremities: Pulses Present
Neurology: Non Focal
Skin: Warm
Psych: Calm
Labs
Lab Results
WBC 0.5 10^3/uL (4.8-10.8) L* 01/23/24 13:24
RBC 2.72 10^6/uL (4.70-6.10) L 01/23/24 13:24
Hgb 8.2 g/dL (13.0-18.0) L 01/23/24 13:
Hct 24.6 % (39.0-52.0) L 01/23/24 13:24
MCV 90.4 fL (80.0-94.0) 01/23/24 13:
MCH 30.1 pg (27.0-31.0) 01/23/24 13:24
MCHC 33.3 g/dL (33.0-37.0) 01/23/24 13:24
RDW 17.0 % (11.5-14.5) H 01/23/24 13:24
Plt Count 23 10^3/uL (130-400) L* 01/23/24 13:24
MPV 11.3 fL (7.4-10.4) H 01/23/24 13:24
Abs Immat Gran (auto) 0.0 10^3/uL (0-0.05) 01/23/24 13:24
Absolute Neuts (auto) 0.1 10^3/uL (1.4-6.5) L* 01/23/24 13:24
Absolute Lymphs (auto) 0.3 10^3/uL (1.2-3.4) L 01/23/24 13:24
Absolute Monos (auto) 0.0 10^3/uL (0.1-0.6) L 01/23/24 13:24
Absolute Eos (auto) 0.0 10^3/uL (0-0.7) 01/23/24 13:24
Absolute Basos (auto) 0.0 10^3/uL (0-0.2) 01/23/24 13:24
Immature Gran % 0.0 % (0-0.5) 01/23/24 13:24
Neutrophils % 21.3 % (42.2-75.2) L 01/23/24 13:24
Lymphocytes % 70.2 % (20.5-51.1) H 01/23/24 13:24
Monocytes % 6.4 % (1.7-9.3) 01/23/24 13:24
Eosinophils % 0.0 % (0-6) 01/23/24 13:24
Basophils % 2.1 % (0-2) H 01/23/24 13:24
Creatinine 2.0 mg/dL (0.7-1.3) H 01/23/24 13:24
Vital Signs
Vital Signs
Temp Pulse Resp BP Pulse Ox
103.2 F H 128 18 95/82 99
01/23/24 13:55 01/23/24 15:15 01/23/24 15:15 01/23/24 15:01 01/23/24 15:15
[2024-01-23] MEDS: VANCOCIN 540 MG IV (16:20)
[2024-01-23 16:31] LABS: Glucose - Point of Care 315 mg/dl (70-99)
[2024-01-23] MEDS: NOVOLOG FLEXPEN-LOW RESISTANCE 4 UNITS SC (17:38)
[2024-01-23] MEDS: COLACE PO (17:42)
--- NOTE | 2024-01-23 17:52 | PTCARENOTE ---
Pt rec'd from ED to IMU Room 3344 with accompanying. Orders rec'd, insulin order clarified by Tiffanie Melendrez NP, pt had hypoglycemia with Glucose in 300s x2, covered with 4 units at this time, ordered dinner but pt states he has poor
appetite. Pt with rigors, temp is currently 98.3. Admission completed at this time with . Call hall in reach. Pt remains in afib, HR currently 120 range. Will discuss with attending. BP 143/71.
--- NOTE | 2024-01-23 18:21 | PHA.VAN.IN ---
Assessment
- Assessment
Renal Function: Appears elevated from baseline (1.5 12/2023)
Maximum Temperature: 103.2 F rectal 01/22 @ 1355
Concomitant Antimicrobials: cefepime
Plan
- Plan
Initial / Loading Dose: vanc 2000mg administered @ 1620
Maintenance Regimen: dosing by level
Monitoring: random level 01/23 0600
Pharmacokinetics Vancomycin I
- -
Patient Age: 78
Patient Sex: Male
Vancomycin Day #: 1
Indication: Other
Requesting Provider: Tiffanie Melendrez
Pertinent Antimicrobial Allergies:
trimethoprim/sulfamethoxazole - lip swelling
tetracycline - 'penis swells up'
Height / Weight:
Height 6 ft 1 in
Actual Weight 87.8 kg
Pertinent Past Medical History: MDS/AML, CKD3,
- Vital Signs / Lab Results
Temp Pulse Resp BP Pulse Ox
98.3 F 128 20 143/71 99
01/23/24 17:40 01/23/24 17:45 01/23/24 17:45 01/23/24 16:55 01/23/24 16:30
Lab Results - Hematology
01/23/24
13:24
WBC 0.5 L*
Lab Results - Chemistry
01/23/24
13:24
BUN 53 H
Creatinine 2.0 H
Estimated Creat Clear 33
Albumin 3.6
01/23/24
13:24
Lactic Acid 2.8 H
Microbiology Results
01/23/24 15:34 Influenza Types A & B (ISABELLA) - Final
Nasal Swab Negative for Influenza A & B, NAAT
Negative results must be combined with clinical observations
and patient history.
Nucleic Acid Amplification test (NAAT)performed on the
[employer] platform.
[2024-01-23 20:01] LABS: Lactic Acid 1.5 mmol/L (0.7-2.0)
[2024-01-23] MEDS: TOPROL XL 25 MG PO (20:01)
[2024-01-23] MEDS: PROTONIX 40 MG PO (20:02)
[2024-01-23] MEDS: GRANIX 480 MCG SC (22:02)
[2024-01-23] MEDS: MELATONIN 5 MG PO (22:02)
[2024-01-23] MEDS: LANTUS 0.14 UNITS SC (22:06)
[2024-01-23 22:13] LABS: Glucose - Point of Care 237 mg/dl (70-99)
[2024-01-23 22:58] LABS: Urine Albumin 1+ (Neg - Trace); Urine Bilirubin Negative (Negative); Urine Character Slightly Cloudy (Clear); Urine Color Yellow; Urine Glucose Trace (Negative); Urine Ketone Negative (Negative); Urine Leukocyte Trace (Negative); Urine Nitrite Negative (Negative); Urine Occult Blood 2+ (Negative); Urine Urobilinogen Negative (Neg - 1+)
[2024-01-23 23:04] LABS: Urine Red Blood Cell 0-2 /HPF (0-2); Urine Squamous Cell 0-2 /LPF (Few)
[2024-01-23 23:05] LABS: Urine Bacteria Few (Negative)
[2024-01-24] VITALS (19 sets, daily range): BP systolic 90–156; BP diastolic 50–75; PULSE 89; O2SAT 100; BMI 25.2
[2024-01-24] MEDS: STERILE WATER FOR INJECTION 10 ML IV ×2 (02:30→14:54)
[2024-01-24] MEDS: MAXIPIME 2000 MG IV ×2 (02:30→14:54)
--- NOTE | 2024-01-24 03:00 | DOWNTIME ---
There was a [employer] Client Product Advisor Downtime on 12/27/2023 from 0100 to 12/27/2023 at 0252. Downtime documentation of patient's care, including medication administrations, has been reconciled in the electronic record per guidelines. Refer to the
patient's paper chart under the miscellaneous tab to see printed paper medication records and downtime forms.
[2024-01-24 04:53] LABS: Hematocrit 20.8 % (39.0-52.0); Hemoglobin 6.9 g/dL (13.0-18.0); Mean Corp Hgb Conc. 33.2 g/dL (33.0-37.0); Mean Corpuscular Hgb 29.6 pg (27.0-31.0); Mean Corpuscular Volume 89.3 fL (80.0-94.0); Mean Platelet Volume 12.5 fL (7.4-10.4); Platelet Count 18 10^3/uL (130-400); Red Blood Cell Count 2.33 10^6/uL (4.70-6.10); White Blood Cell Count 0.8 10^3/uL (4.8-10.8)
[2024-01-24 04:55] LABS: Fibrinogen 628 MG/DL (199-459); INR 1.67; PT 19.5 Sec (11.4-14.6)
[2024-01-24 04:56] LABS: APTT 47.9 Sec (23.4-35.0)
[2024-01-24 04:58] LABS: D-Dimer 2.56 ug/mlFEU (0.00-0.50)
--- NOTE | 2024-01-24 05:01 | W.PN.UPDATE ---
Update Note
Progress Note Update
hgb level is 6.9 and plt is 18 this am. One unit of blood, and SDP ordered. Will continue monitoring hgb and plts as needed.
[2024-01-24 05:06] LABS: ALT (SGPT) 54 U/L (0-50); AST (SGOT) 79 U/L (17-59); Alkaline Phosphatase 102 U/L (38-126); Blood Urea Nitrogen 48 mg/dl (9-20); Calcium 8.6 mg/dl (8.4-10.2); Carbon Dioxide 17 mmol/L (22-30); Chloride 111 mmol/L (98-107); Direct Bilirubin 0.7 mg/dl (0.0-0.4); Estimated Creatinine Clearance 40 ml/min; Glucose 110 mg/dl (70-99); LDH 233 U/L (120-246); Potassium 4.8 mmol/L (3.5-5.1); Sodium 141 mmol/L (135-145); Total Bilirubin 1.4 mg/dl (0.2-1.3); Total Protein 5.5 g/dl (6.3-8.2); Uric Acid 5.1 mg/dl (3.5-8.5); eGFR 40.75
[2024-01-24 05:18] LABS: Vancomycin Random 14.8 ug/ml
[2024-01-24 06:57] LABS: Band Neutrophils 0 % (0-3); Lymphocytes 76 % (20-51); Monocytes 12 % (2-9); Platelets Checked Yes; Segmented Neutrophils 12 % (42-75)
[2024-01-24 06:58] LABS: Acanthocytes FEW; Anisocytosis 1+; Hypochromasia 1+; Normal RBC Morphology No; Ovalocytes 1+; Polychromasia 1+
[2024-01-24 06:59] LABS: Total Cells Counted 100
--- NOTE | 2024-01-24 08:16 | VNURNOTE ---
Chart reviewed. Patient is current with VN PT. Will continue to follow hospital course and DC plans.
[2024-01-24] MEDS: NOVOLOG FLEXPEN-LOW RESISTANCE SC ×2 (08:17→12:31)
[2024-01-24] MEDS: PROTONIX 40 MG PO ×2 (08:17→20:30)
[2024-01-24 08:27] LABS: Glucose - Point of Care 129 mg/dl (70-99)
[2024-01-24 08:39] LABS: Glycohemoglobin (HgbA1c) 7.3 % (4.0-5.6)
--- NOTE | 2024-01-24 09:18 | PHA.VAN.FU ---
Vancomycin Assessment / Plan
- Assessment
Renal Function: SCR Decreasing
Neutropenia: ANC = 0
Concomitant Antimicrobials: cefepime
- Assessment - Therapeutic Drug Monitoring
Random Level: 14.8 - drawn ~12H after 2g loading dose
- Dosing Plan
Dosing by Level: Re-dose today (Vanc 1000mg)
- Monitoring Plan
Random Level: 01/24 0600
- Follow Up
Pharmacy will continue to follow.
Vancomycin Follow UP
- -
Patient Age: 78
Patient Sex: Male
Vancomycin Day #: 2
Indication: Other
Requesting Provider: Tiffanie Melendrez
Pertinent Antimicrobial Allergies:
trimethoprim/sulfamethoxazole - lip swelling
tetracycline - 'penis swells up'
Height / Weight:
Height 6 ft 1 in
Actual Weight 86.7 kg
Pertinent Past Medical History: MDS/AML, CKD3
- Vital Signs / Lab Results
Temp Pulse Resp BP Pulse Ox
98.1 F 99 17 112/61 99
01/24/24 08:58 01/24/24 08:58 01/24/24 08:58 01/24/24 08:58 01/23/24 16:30
Lab Results - Hematology
01/23/24 01/24/24
13:24 04:27
WBC 0.5 L* 0.8 L*
Band Neutrophils 0
Lab Results - Chemistry
01/23/24 01/24/24
13:24 04:27
BUN 53 H 48 H
Creatinine 2.0 H 1.7 H
Estimated Creat Clear 33 40
Albumin 3.6 3.0 L
01/23/24 01/23/24
13:24 19:43
Lactic Acid 2.8 H 1.5
Lab Results - Urine
01/23/24
22:53
Urine Nitrite Negative
Ur Leukocyte Esterase Trace A
Urine WBC 6-10 A
Ur Squamous Epith Cells 0-2
Urine Bacteria Few A
Microbiology Results
01/23/24 13:24 Blood Culture - Preliminary
Blood/Venous Positive culture in progress
Gram Stain - Preliminary
01/23/24 15:34 Influenza Types A & B (ISABELLA) - Final
Nasal Swab Negative for Influenza A & B, NAAT
Negative results must be combined with clinical observations
and patient history.
Nucleic Acid Amplification test (NAAT)performed on the
[employer] platform.
Therapeutic Drug Monitoring
Random Vancomycin 14.8 ug/ml 01/24/24 04:27
--- NOTE | 2024-01-24 09:30 | W.PN.HOSP.TC ---
Addendum entered and electronically signed by Sukhjinder Rich MD 01/24/24 15:03:
Purulent drainage from abd
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
-Patient have history of abdominal hernia repair with mesh which likely has been infected
-Patient reported to having some drainage from surgical incision site small track, which dried for last 2 years
-On exam patient have padmaja purulent drainage coming out, this has been cultured
-CT abdomen pelvis without contrast ordered to better evaluate any deeper seeded abscess pockets
-Patient not a candidate for surgical mass removal. May require lifelong antibiotic suppressive therapy
-Discussed with ID as well.
Original Note:
Today's Communication/Plan
-
1 u prbc/plt transfusion
f/u cbc count
f/u blood culture report
continue abx
transfer to tele
Assessment / Plan
Assessment / Plan
1. Neutropenic fever
Gram-positive bacteremia
-Presented for generalized weakness. Found to be febrile in the ER
-Pancytopenic with Hbg 6.9, TWBC 0.8, ANC 0 and plt 18
-Chest x-ray clear. No abdominal complaints.
-Blood culture 1 set out of 3 growing gram-positive cocci in chains, await further identification and susceptibility of the organism
-Currently empirically covered with vancomycin and cefepime. ID consulted for further help
-Oncology following, patient got dose of filgrastim/granix yesterday night
2. AML
MDS
Pancytopenia
-Follows with Dr. Ramses Carbajal,
-Got Vidaza on 01/17 and 01/18, could not finish 5-day course
-Getting 1 unit of PRBC and 1 unit of platelet for hbg 6.9 and Plt 18
-Monitor CBC with differential
3. IDDM
-Maintain on home regimen of long-acting insulin with Premeal
-Will adjust further insulin dosing based on blood glucose response
4. Essential HTN
- continue on home dose of toprol xl
5. Permanent Afib
-Currently in rate controlled A-fib, continue Toprol
-Off of Coumadin with lukemia/pancytopenia
History of bladder cancer s/p chemoradiation
History of prostatectomy
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
Chronic kidney disease stage III
COPD
DNR/DNI
SCD
Total time spent : 53 mins
I personally saw and examined the patient.
I have reviewed all diagnostic interpretations and treatment plans as written.
Time includes patient management by me, time spent at the patients bedside, time to review lab and imaging results, discussing patient care, documentation in the medical record, and time spent with the family or caregiver and discussing care plan
with RN/Consultants.
Anticipated Discharge: > 48 hours
Subjective/Interval History
-
Date of Service: January 24, 2024
Patient resting comfortably in bed
Febrile yesterday, no fever in the night
Not hypotensive
Objective Data
-
Labs:
Laboratory Results
01/24/24
04:27
WBC 0.8 L*
Hgb 6.9 L*
Hct 20.8 L*
Plt Count 18 L* D
PT 19.5 H
INR 1.67
APTT 47.9 H
Sodium 141
Potassium 4.8
Chloride 111 H
Carbon Dioxide 17 L
BUN 48 H
Creatinine 1.7 H
Glucose 110 H
Calcium 8.6
Total Bilirubin 1.4 H
AST 79 H
ALT 54 H
Alkaline Phosphatase 102
Vital Signs:
Vital Signs
Temp Pulse Resp BP Pulse Ox
98.1 F 99 17 112/61 99
01/24/24 08:58 01/24/24 08:58 01/24/24 08:58 01/24/24 08:58 01/23/24 16:30
I&O
01/23/24 01/24/24 01/25/24
06:59 06:59 06:59
Intake Total 1540 / 1540 0 / 0
Output Total 1375 / 1375
Balance 165 / 165 0 / 0
Review of Systems
-
Respiratory: Reports No Symptoms
Cardiac: Reports No Symptoms
Abdomen/GI: Reports No Symptoms
Physical Exam
-
General: No Apparent Distress and Comfortable
HEENT: Negative Oxygen
Respiratory: Clear to Auscultation
Cardiac: Regular Rhythm and S1/S2; Negative Murmur or Rub
GI: Soft, Nontender, Nondistended and Normal Bowel Sounds
Musculoskeletal: No Edema
Neuro: Awake, Alert, Oriented, No Motor Deficits and Nonfocal/Grossly Intact
Psych: Calm
--- NOTE | 2024-01-24 09:54 | W.PN.ONC2 ---
Documented by User: ZAC Payan 01/24/24 09:59
Today's Communication / Plan
-
follow CBC, transfuse prn
abx/infectous w/u per ID
Impression
Impression
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
No evidence acute DIC
Recent GIB, monitor for bleeding
neutropenic fever
positive blood culture -gram positive cocci in pairs x 1 bottle
Plan
Plan
Neutropenic precautions. Daily GCSF in setting of severe neutropenia and febrile illness. Benefit of GCSF outweighs risk.
Follow up ID consult. Follow cultures. Check C.diff and stool culture if develops diarrhea. On broad spectum IV abx
Transfuse packed RBC for hemoglobin less than 8 or as needed for symptomatic anemia
Transfuse SDP if platelets <20 in setting of neutropenic fever, <50 prn bleeding.
continue to hold anticoagulation the setting of severe thrombocytopenia
follow-up with Dr. Cruz for continued EPO and hypomethylating agent support upon discharge
Subjective/Objective
Chief Complaint
nausea with eating
Subjective
denies cough, sob, chest pain, palpitations. Denies bleeding
Vital Signs:
Vital Signs
Temp Pulse Resp BP Pulse Ox
98.1 F 99 17 112/61 99
01/24/24 08:58 01/24/24 08:58 01/24/24 08:58 01/24/24 08:58 01/23/24 16:30
Lab Results:
Laboratory Data
WBC 0.8 10^3/uL (4.8-10.8) L* 01/24/24 04:27
Hgb 6.9 g/dL (13.0-18.0) L* 01/24/24 04:27
Plt Count 18 10^3/uL (130-400) L* D 01/24/24 04:27
PT 19.5 Sec (11.4-14.6) H 01/24/24 04:27
INR 1.67 01/24/24 04:27
APTT 47.9 Sec (23.4-35.0) H 01/24/24 04:27
eGFR 40.75 01/24/24 04:27
Physical Exam
General: Appears Chronically Ill
HEENT: Moist Mucous Membranes and Other (poor dentition); no Jaundice
Cardiology: S1 and S2
Pulmonary: Clear
GI: Soft
Genito-Urinary: Chronic ileal conduit
Extremities: Pulses Present, no edema
Neurology: Non Focal
Skin: Warm
Psych: Calm
Review of Systems
Review of Systems
ROS notable for subjective, otherwise negative
Orders
Orders
Orders From Last 24 Hours
01/23/24 16:39
Precautions As Directed
01/23/24 22:00
Tbo-Filgrastim [Granix] 480 mcg SC HS
01/24/24 04:27
D-Dimer IN AM
Fibrinogen IN AM
INR [Prothrombin Time] IN AM
LDH IN AM
PTT IN AM
Uric Acid IN AM
01/25/24 06:00
CBC/With Diff [Complete Blood Count/With Diff] IN AM
01/26/24 06:00
CBC/With Diff [Complete Blood Count/With Diff] IN AM
01/27/24 06:00
CBC/With Diff [Complete Blood Count/With Diff] IN AM
01/28/24 06:00
CBC/With Diff [Complete Blood Count/With Diff] IN AM
01/29/24 06:00
CBC/With Diff [Complete Blood Count/With Diff] IN AM
01/30/24 06:00
CBC/With Diff [Complete Blood Count/With Diff] IN AM
01/31/24 06:00
CBC/With Diff [Complete Blood Count/With Diff] IN AM
02/01/24 06:00
CBC/With Diff [Complete Blood Count/With Diff] IN AM
02/02/24 06:00
CBC/With Diff [Complete Blood Count/With Diff] IN AM

Documented by User: Mike Rosenthal MD 01/24/24 13:05
Plan
Plan
Neutropenic precautions. Daily GCSF in setting of severe neutropenia and febrile illness. Benefit of GCSF outweighs risk.
Follow up ID consult. Follow cultures. Check C.diff and stool culture if develops diarrhea. On broad spectum IV abx
Transfuse packed RBC for hemoglobin less than 8 or as needed for symptomatic anemia
Transfuse SDP if platelets <20 in setting of neutropenic fever, <50 prn bleeding.
continue to hold anticoagulation the setting of severe thrombocytopenia
follow-up with Dr. Cruz for continued EPO and hypomethylating agent support upon discharge
Hematology Addendum:
Patient seen and evaluated and agree w/ MITER SAW OPERATOR note and plan as outlined
-MDS - pancytopenia
-transfuse plts and PRBCs today
-GCSF for WBC support
-antibiotics as per ID
-follow CBC
Will continue to follow with you.
--- NOTE | 2024-01-24 10:53 | PTCARENOTE ---
Pt w/ edema to L arm from IVF infiltration yesterday. Still had patent 20 gauge catheter in that arm - flushed and verified by IV team this morning. While platelets infusing pt c/o pain at IV site and increased edema noted. Infusion stopped. IV
team called and new access obtained in R arm. Able to finish platelet transfusion in R arm. Warm compress applied to L arm.
--- NOTE | 2024-01-24 11:29 | CON.ID ---
Consultation
-
Date/Time Consultation Requested: 01/23/2024 1520
Date/Time Consultation Performed: 01/24/2024 1120
Requesting Provider: Tiffanie Melendrez
Performing Provider: Dr. Costa
Reason for Consultation: Neutropenic fever
Chief Complaint / Past History
History of Present Illness
Elijah Askew is a 78-year-old man with a significant past medical history of transfusion dependent MDS/AML being evaluated at the request of Tiffanie Melendrez regarding neutropenic fever. History is obtained from chart review, along with patient
interview.
The patient is closely followed by Oncology and has been receiving chemotherapy in the treatment of his myelodysplastic syndrome. He was scheduled to receive treatment on 01/21, but did not present to the oncology office secondary to fatigue,
weakness and poor appetite. He was advised to proceed to the ER, but he did not want to at that point. Yesterday he developed fever and his convinced him to come to the emergency room. On presentation his ANC was found to be 100, with a
platelet count of 23,000. He has been started on empiric antibiotics. Infectious Diseases is asked to further antibiotic therapy.
Currently the patient feels fair. He does recall feeling hot and cold at home, but Tmax there was 100.3. He reports occasional cough but no recent change. He describes the production of very little phlegm. He denies any abdominal pain. He does
admit, though, that a small spot on his lower abdomen has opened up and is now draining pus. He reports that he had a history of a wound in this area for at least a year and previously had been following with wound care. He has a remote history of
ventral hernia repair with mesh in place.
Past History
Additional Past Medical History:
MDS/AML (transfusion dependent); on chemotherapy
Bladder cancer (2010)
A-fib
HTN
DM
COPD
Interstitial lung disease
CKD
Additional Past Surgical History:
Radical cystectomy/prostatectomy
Appendectomy
Ventral hernia repair (with mesh; 2004)
Cholecystectomy
Ileal conduit formation
Allergy History:
pollen extracts Allergy (Verified 11/24/23 12:06)
SEASONAL-NASAL SYMPTOMS
sulfamethoxazole [From Bactrim] Allergy (Verified 11/24/23 12:06)
lip swelling
tetracycline Allergy (Verified 11/24/23 12:06)
Swelling/'penis swells up'.
trimethoprim [From Bactrim] Allergy (Verified 11/24/23 12:06)
lip swelling
Medications Reviewed: Yes
Current Antibiotics:
Vancomycin (dosed per pharmacy)
Cefepime 2 g IV every 12 hours
Social History
Tobacco: Non-Smoker
Alcohol: None
Drug: None
Personal:
Living: With Family
Employment: Retired
Family History
Family History: Not Pertinent
Review of Systems
Vital Signs
Temp Pulse Resp BP Pulse Ox
98.2 F 88 20 115/63 98
01/24/24 11:16 01/24/24 11:16 01/24/24 11:16 01/24/24 11:16 01/24/24 10:51
Physical Exam
Physical Exam
Constitutional: No Acute Distress, Comfortable and Non-toxic
Eyes: Pupils Equal, Pupils Round, No Conjunctival Hemorrhage and Sclera Anicteric
Oral: No Thrush and No Ulcers
Cardiovascular: Regular Rate and S1/S2; Negative S3/S4
Pulmonary: Clear and Non Labored; Negative Wheezes, Rales or Rhonchi
Gastrointestinal: Soft, Non Tender, Non Distended, Normal Bowel Sounds, No Rebound and No Guarding
Genito-Urinary: CVA Tenderness and Other (Right-sided abdominal urostomy with clear yellow urine.)
Extremities: Negative Edema, Cyanosis or Erythema
Wound: Other (Lower abdominal punctate wound with expressible light beige purulence.)
Neurological: Awake and Alert
Psychological: Calm
.
Lab / Diagnostic Study Results
01/24/24 04:27
01/24/24 04:27
Abs Immat Gran (auto) 0.0 10^3/uL (0-0.05) 01/23/24 13:24
Absolute Neuts (auto) 0.1 10^3/uL (1.4-6.5) L* 01/23/24 13:
Absolute Lymphs (auto) 0.3 10^3/uL (1.2-3.4) L 01/23/24 13:24
Absolute Monos (auto) 0.0 10^3/uL (0.1-0.6) L 01/23/24 13:
Absolute Basos (auto) 0.0 10^3/uL (0-0.2) 01/23/24 13:24
Total Counted 100 01/24/24 04:27
Immature Gran % 0.0 % (0-0.5) 01/23/24 13:24
Neutrophils % 21.3 % (42.2-75.2) L 01/23/24 13:
Lymphocytes % 70.2 % (20.5-51.1) H 01/23/24 13:24
Monocytes % 6.4 % (1.7-9.3) 01/23/24 13:
Eosinophils % 0.0 % (0-6) 01/23/24 13:
Basophils % 2.1 % (0-2) H 01/23/24 13:24
Abs Neuts (Manual) 0.0 10^3/uL (1.4-6.5) L* 01/24/24 04:27
Segmented Neutrophils 12 % (42-75) L 01/24/24 04:27
Band Neutrophils 0 % (0-3) 01/24/24 04:27
Lymphocytes (Manual) 76 % (20-51) H 01/24/24 04:27
PT 19.5 Sec (11.4-14.6) H 01/24/24 04:27
INR 1.67 01/24/24 04:27
Lactic Acid 1.5 mmol/L (0.7-2.0) 01/23/24 19:43
Urine WBC 6-10 /HPF (0-5) A 01/23/24 22:53
Ur Squamous Epith Cells 0-2 /LPF (Few) 01/23/24 22:53
Microbiology Results
Micro:
01/23/24 13:24 Blood Culture - Preliminary
Blood/Venous Streptococcus species
Gram Stain - Preliminary
01/23/24 15:34 Urine Culture - Preliminary
Urine
01/23/24 15:34 Influenza Types A & B (ISABELLA) - Final
Nasal Swab Negative for Influenza A & B, NAAT
Negative results must be combined with clinical observations
and patient history.
Nucleic Acid Amplification test (NAAT)performed on the
[employer] platform.
01/23/24 15:45 Blood Culture - Pending
Blood/Venous
01/23/24 15:34 Blood Culture - Pending
Blood/Venous
Imaging:
01/23/2024 CXR (2 view): There is no parenchymal opacification or vascular congestion. The cardiomediastinal silhouettes are within the limits of normal. There is no pneumothorax, pleural effusion or mediastinal shift.
Assessment / Plan
Febrile neutropenia.
Bacteremia with Streptococcus species
Draining lower abdominal wound; ?Infected mesh
Pancytopenia (anemia/neutropenia/thrombocytopenia); transfusion dependent
CKD
MDS/AML (transfusion dependent); on chemotherapy
Bladder cancer (2010); s/p radical cystectomy with urostomy placement
A-fib
HTN
DM
COPD / Interstitial lung disease
Recommendations:
Continue with vancomycin and cefepime for the present.
Doses have been adjusted for renal insufficiency
Blood cultures noted to be positive with strep species. Will repeat blood cultures tomorrow to assess for clearance.
Wound culture of the abdominal drainage has been obtained. Patient is without discomfort, but may need imaging (CT) of the lower abdomen to assess for abscess.
Follow white count and temperature curve.
Further recommendations as additional data is returned.
Care Review
Plan reviewed with: Physician (Hospitalist)
[2024-01-24 12:40] LABS: Glucose - Point of Care 130 mg/dl (70-99)
[2024-01-24] MEDS: VANCOCIN 200 IV (13:43)
--- NOTE | 2024-01-24 14:03 | PTCARENOTE ---
transferred from IMU. unit of PRBC has infused, no adverse reactions noted. patient oriented to the room. family at bedside. assessment as documented. VSS. cont bedrest Q2turn as documented. no c.o pain at present, appears comfortable. assisted with
lunch menu options and ordering.
--- NOTE | 2024-01-24 15:20 | CM ---
Alert awake oriented patient who lives with his Mirza who lives in a 1 story home with 1 step to enter . He is assisted in all activities of daily living.He uses a walker.Pt receiving blood transfusion today.
[facility] hx /No SNF hx
Pharmacy [facility]
PCP DR Raphael Lam
PLAN Will need PT OT for dc planning .
[2024-01-24 17:34] LABS: Glucose - Point of Care 256 mg/dl (70-99)
[2024-01-24] MEDS: NOVOLOG FLEXPEN-LOW RESISTANCE 3 UNITS SC (17:35)
[2024-01-24] MEDS: COLACE PO (17:36)
[2024-01-24] MEDS: MELATONIN 5 MG PO (20:30)
[2024-01-24] MEDS: GRANIX 480 MCG SC (21:41)
[2024-01-24] MEDS: LANTUS 0.14 UNITS SC (21:42)
[2024-01-24 21:53] LABS: Glucose - Point of Care 294 mg/dl (70-99)
[2024-01-25] VITALS (16 sets, daily range): BP systolic 88–162; BP diastolic 54–79; PULSE 90–104; O2SAT 99–100; BMI 25.1
[2024-01-25] MEDS: MAXIPIME 2000 MG IV ×2 (01:02→14:46)
[2024-01-25] MEDS: STERILE WATER FOR INJECTION 10 ML IV ×2 (01:02→14:46)
[2024-01-25] MEDS: FLUSH (NSS) 3 FLUSH IV (01:04)
[2024-01-25 07:26] LABS: Glucose - Point of Care 236 mg/dl (70-99)
[2024-01-25 08:05] LABS: Vancomycin Random 12.8 ug/ml
[2024-01-25 08:12] LABS: % Lymphocytes 63.3 % (20.5-51.1); % Monocytes 8.2 % (1.7-9.3); % Neutrophils 26.5 % (42.2-75.2); Absolute Lymphocytes 0.3 10^3/uL (1.2-3.4); Absolute Neutrophils 0.1 10^3/uL (1.4-6.5); Hematocrit 21.4 % (39.0-52.0); Hemoglobin 7.4 g/dL (13.0-18.0); Mean Corp Hgb Conc. 34.6 g/dL (33.0-37.0); Mean Corpuscular Hgb 31.2 pg (27.0-31.0); Mean Corpuscular Volume 90.3 fL (80.0-94.0); Mean Platelet Volume 10.9 fL (7.4-10.4); Nucleated Red Blood Cells % 6.1 % (-); Platelet Count 15 10^3/uL (130-400); Red Blood Cell Count 2.37 10^6/uL (4.70-6.10); Red Cell Dist. Width 17.1 % (11.5-14.5); White Blood Cell Count 0.5 10^3/uL (4.8-10.8)
--- NOTE | 2024-01-25 08:37 | W.PN.ONC2 ---
Today's Communication / Plan
-
follow CBC, fever curve. I ordered 1 SDP today
bacteremia and pelvic wall abscess apprec ID recs
Impression
Impression
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
No evidence acute DIC
Recent GIB, monitor for bleeding
neutropenic fever
anterior pelvic wall abscess 1.7 x 4.0 x 3.0 cm
streptococcus species bacteremia
fecal impaction
Plan
Plan
Neutropenic precautions. Daily GCSF in setting of severe neutropenia and febrile illness. Benefit of GCSF outweighs risk.
ID following. streptococcus bacteremia and pelvic wall abscess
Transfuse packed RBC for hemoglobin less than 8 or as needed for symptomatic anemia
Transfuse SDP if platelets <20 in setting of neutropenic fever, <50 prn bleeding.
continue to hold anticoagulation the setting of severe thrombocytopenia
follow-up with Dr. Cruz for continued EPO and hypomethylating agent support upon discharg
Subjective/Objective
Chief Complaint
no new complaints
Subjective
afebrile, no hypoxia or hypotension
Vital Signs:
Vital Signs
Temp Pulse Resp BP Pulse Ox
98.0 F 101 20 111/61 100
01/25/24 07:34 01/25/24 07:34 01/25/24 07:34 01/25/24 07:34 01/25/24 07:34
Lab Results:
Laboratory Data
WBC 0.5 10^3/uL (4.8-10.8) L* 01/25/24 07:34
Hgb 7.4 g/dL (13.0-18.0) L 01/25/24 07:34
Plt Count 15 10^3/uL (130-400) L* 01/25/24 07:34
PT 19.5 Sec (11.4-14.6) H 01/24/24 04:27
INR 1.67 01/24/24 04:27
APTT 47.9 Sec (23.4-35.0) H 01/24/24 04:27
eGFR 40.75 01/24/24 04:27
Physical Exam
HEENT: Moist Mucous Membranes; No Jaundice
Cardiology: S1 and S2
Pulmonary: Clear
GI: Soft and Other (abdominal wound with dressing c/d/i)
Review of Systems
Review of Systems
ROS notable for subjective,otherwise negative
Orders
Orders
Orders From Last 24 Hours
01/26/24 06:00
CBC/With Diff [Complete Blood Count/With Diff] IN AM
01/27/24 06:00
CBC/With Diff [Complete Blood Count/With Diff] IN AM
01/28/24 06:00
CBC/With Diff [Complete Blood Count/With Diff] IN AM
01/29/24 06:00
CBC/With Diff [Complete Blood Count/With Diff] IN AM
01/30/24 06:00
CBC/With Diff [Complete Blood Count/With Diff] IN AM
01/31/24 06:00
CBC/With Diff [Complete Blood Count/With Diff] IN AM
02/01/24 06:00
CBC/With Diff [Complete Blood Count/With Diff] IN AM
02/02/24 06:00
CBC/With Diff [Complete Blood Count/With Diff] IN AM
[2024-01-25] MEDS: NOVOLOG FLEXPEN-LOW RESISTANCE 2 UNITS SC (08:41)
[2024-01-25] MEDS: PROTONIX 40 MG PO ×2 (08:41→19:58)
[2024-01-25 08:49] LABS: ALT (SGPT) 125 U/L (0-50); AST (SGOT) 179 U/L (17-59); Albumin 2.8 g/dl (3.5-5.0); Alkaline Phosphatase 119 U/L (38-126); Blood Urea Nitrogen 46 mg/dl (9-20); Calcium 8.7 mg/dl (8.4-10.2); Carbon Dioxide 16 mmol/L (22-30); Chloride 110 mmol/L (98-107); Estimated Creatinine Clearance 43 ml/min; Glucose 228 mg/dl (70-99); Potassium 4.6 mmol/L (3.5-5.1); Sodium 139 mmol/L (135-145); Total Bilirubin 1.7 mg/dl (0.2-1.3); Total Protein 5.2 g/dl (6.3-8.2); eGFR 43.83
--- NOTE | 2024-01-25 09:24 | PHA.VAN.FU ---
Vancomycin Assessment / Plan
- Assessment
Renal Function: Stable
Neutropenia: ANC = 100
In the past 24 hrs, patient has been: Afebrile
Concomitant Antimicrobials: cefepime
- Assessment - Therapeutic Drug Monitoring
Random Level: 12.8 - drawn ~17.5H after previous dose of 1000mg
- Dosing Plan
Dosing by Level: Re-dose today (Vanc 1000mg)
- Monitoring Plan
Random Level: 01/25 0600
- Follow Up
Pharmacy will continue to follow.
Vancomycin Follow UP
- -
Patient Age: 78
Patient Sex: Male
Vancomycin Day #: 3
Indication: Other
Requesting Provider: Tiffanie Costa
Pertinent Antimicrobial Allergies:
trimethoprim/sulfamethoxazole - lip swelling
tetracycline - 'penis swells up'
Height / Weight:
Height 6 ft 1 in
Actual Weight 86.319 kg
Pertinent Past Medical History: MDS/AML, CKD3
- Vital Signs / Lab Results
Temp Pulse Resp BP Pulse Ox
98.0 F 101 20 111/61 100
01/25/24 07:34 01/25/24 07:34 01/25/24 07:34 01/25/24 07:34 01/25/24 07:34
Lab Results - Hematology
01/23/24 01/24/24 01/25/24
13:24 04:27 07:34
WBC 0.5 L* 0.8 L* 0.5 L*
Band Neutrophils 0
Lab Results - Chemistry
01/23/24 01/24/24 01/25/24
13:24 04:27 07:34
BUN 53 H 48 H 46 H
Creatinine 2.0 H 1.7 H 1.6 H
Estimated Creat Clear 33 40 43
Albumin 3.6 3.0 L 2.8 L
01/23/24 01/23/24
13:24 19:43
Lactic Acid 2.8 H 1.5
Microbiology Results
01/23/24 13:24 Blood Culture - Preliminary
Blood/Venous Streptococcus species
Gram Stain - Preliminary
01/23/24 15:34 Blood Culture - Preliminary
Blood/Venous No Growth in 24 hours- Final report to follow
01/23/24 15:45 Blood Culture - Preliminary
Blood/Venous No Growth in 24 hours- Final report to follow
01/23/24 15:34 Urine Culture - Preliminary
Urine
01/23/24 15:34 Influenza Types A & B (ISABELLA) - Final
Nasal Swab Negative for Influenza A & B, NAAT
Negative results must be combined with clinical observations
and patient history.
Nucleic Acid Amplification test (NAAT)performed on the
[employer] platform.
Therapeutic Drug Monitoring
Random Vancomycin 12.8 ug/ml 01/25/24 07:34
[2024-01-25] MEDS: DULCOLAX 10 MG PO (09:37)
[2024-01-25 11:57] LABS: Glucose - Point of Care 272 mg/dl (70-99)
[2024-01-25] MEDS: NOVOLOG FLEXPEN-LOW RESISTANCE 3 UNITS SC ×2 (12:25→17:16)
--- NOTE | 2024-01-25 12:31 | CM ---
right of way manager reviewed patient's chart, high risk case manager received a message from [facility] for possible palliative care, high risk case manager spoke with physical therapy regarding recommendation for skilled placement and high risk case manager discussed with patient and spouse
and they are refusing skilled placement, they are also refusing a referral to Palliative care, [facility] made aware.
Plan; Home with [facility] resumption of care.
--- NOTE | 2024-01-25 12:50 | VNURNOTE ---
Received update pt would like to resume [facility]. Spoke with patient over the phone, he denies questions, understands [facility] will reach out to schedule resumption visit within a few days of DC home. Resumption referral placed in [facility].
[2024-01-25] MEDS: VANCOCIN 200 IV (12:51)
--- NOTE | 2024-01-25 13:04 | W.PN.ID1 ---
Date of Service
Date of Service: January 25, 2024
Today's Communication
Continue antibiotics per
Assessment / Plan
Febrile neutropenia.
Bacteremia with Streptococcus bovis
Draining lower abdominal wound
- suspected Infected mesh
- Cultures with MRSA
Pancytopenia (anemia/neutropenia/thrombocytopenia); transfusion dependent
CKD
MDS/AML (transfusion dependent); on chemotherapy
Bladder cancer (2010); s/p radical cystectomy with urostomy placement
A-fib
HTN
DM
COPD / Interstitial lung disease
Recommendations:
Continue with vancomycin (for MRSA/Strep bovis) and cefepime (for neutropenia).
Following Vanco levels closely given underlying renal insufficiency
Current antibiotic doses have been adjusted for renal insufficiency
Follow white count and temperature curve.
Chief Complaint
-: Other (Febrile neutropenia)
Subjective / Review of Systems
Patient seen and examined. Reports feeling slightly improved today.
Vital Signs / Physical Exam
Vital Signs
Vital Signs
Temp Pulse Resp BP Pulse Ox
97.5 F 107 22 109/54 96
01/25/24 12:23 01/25/24 12:47 01/25/24 12:47 01/25/24 12:47 01/25/24 12:47
Physical Exam
Constitutional: Comfortable, Chronically Ill and Non-toxic
Eyes: Sclera Anicteric
Cardiovascular: Regular Rate and S1/S2; Negative S3/S4
Pulmonary: Clear; Negative Wheezes or Rales
Gastrointestinal: Soft, Non Tender and Other (Lower abdominal wound draining purulent drainage.)
Genito-Urinary: Other (Urostomy in place)
Extremities: Edema; Negative Cyanosis or Erythema
Neurological: Awake and Alert
Psychological: Calm
Objective Data
Lab Data
Lab Results
09/19/24 07:34
01/25/24 07:34
PT 19.5 Sec (11.4-14.6) H 01/24/24 04:27
INR 1.67 01/24/24 04:27
APTT 47.9 Sec (23.4-35.0) H 01/24/24 04:27
Estimated Creat Clear 43 ml/min 01/25/24 07:34
Lactic Acid 1.5 mmol/L (0.7-2.0) 01/23/24 19:43
Total Bilirubin 1.7 mg/dl (0.2-1.3) H 01/25/24 07:34
AST 179 U/L (17-59) H 01/25/24 07:34
ALT 125 U/L (0-50) H 01/25/24 07:34
Alkaline Phosphatase 119 U/L (38-126) 01/25/24 07:34
Most recent labs reviewed.
Micro Results:
01/24/24 11:58 Wound Culture - Preliminary
Abdomen Staph aureus MRSA
Gram Stain - Preliminary
01/23/24 13:24 Blood Culture - Preliminary
Blood/Venous Streptococcus bovis
Gram Stain - Preliminary
01/23/24 15:34 Urine Culture - Preliminary
Urine Gram negative bacilli
Enterococcus species
Streptococcus species
01/23/24 15:34 Blood Culture - Preliminary
Blood/Venous No Growth in 24 hours- Final report to follow
01/23/24 15:45 Blood Culture - Preliminary
Blood/Venous No Growth in 24 hours- Final report to follow
01/23/24 15:34 Influenza Types A & B (ISABELLA) - Final
Nasal Swab Negative for Influenza A & B, NAAT
Negative results must be combined with clinical observations
and patient history.
Nucleic Acid Amplification test (NAAT)performed on the
[employer] platform.
Imaging:
01/23/2024 CXR (2 view): There is no parenchymal opacification or vascular congestion. The cardiomediastinal silhouettes are within the limits of normal. There is no pneumothorax, pleural effusion or mediastinal shift.
Care Review
Plan reviewed with: Physician (Hospitalist)
--- NOTE | 2024-01-25 14:11 | WOUNDNOTE ---
[facility] RN note: Patient admitted with sepsis, neutropenic fever. Patient lives with who changes his urostomy appliance.
See H&P for complete history.
PMH: former smoker, myelodyplasic syndrome, leukemia, last chemo days before admission, anemia, bladder ca, ileal conduit, HTN, IDDM, diverticulitis, cholecystectomy, neuropathy, ventral hernia repair 2004 with wound opening 2010, CKD3a/3b, COPD,
DJD.
Wound Location and type/assessment: Patient as draining lower abdominal wound from suspected infected hernia mesh with abscess, +MRSA. Opening small with 2.9cm depth. Moderate serous yellow drainage. No surrounding erythema. stated wound
drains on/off in general prior to admission. Sacrum dull red and intact. Heels blanchable red and intact. Urostomy appliance intact. Urine yellow colored. Stoma pink. stated she will bring in his urostomy supplies and change his appliance
tomorrow. He uses a Naomi pre cut convex 2 piece appliance.
Appetite: fair.
Pressure redistribution devices in place: [employer] Accumax. Patient can turn self in bed.
Plan: Abdominal dressing changed. Heels off bed with pillow. Instructed local care and instructed patient pressure injury prevention measures. Air chair cushion given.
Confirm orders with Dr. Costa who confirmed no packing, just dry gauze dressing.
Care plan to be updated and will follow as needed.
Note to case management of equipment requested for discharge: stated VN is planned when discharged.
Recommend follow up at wound care center upon discharge if needed.
--- NOTE | 2024-01-25 14:11 | W.PN.HOSP.TC ---
Today's Communication/Plan
-
see note
Assessment / Plan
Assessment / Plan
CT a/p
1).There is low-density collection in the anterior pelvic wall measuring 1.7 x 4.0 x 3.0 cm in AP, transverse and craniocaudal dimensions respectively consistent with abscess and associated with a linear soft tissue density extending to the anterior
skin surface which, given the patient's clinical history, I suspect this fistula from the abscess to the skin surface
2).There is moderate feces in rectum suggesting fecal impaction with associated perirectal edema suggesting stercoral colitis
3).There is cystectomy, and ureteral diversion with right lower quadrant urostomy
4).There is moderate left-sided renal cortical atrophy
There is 2 mm nonobstructing calculus in the midportion of the left kidney

1. Neutropenic fever
Streptococcus bovis bacteremia
-Presented for generalized weakness. Found to be febrile in the ER
-Pancytopenic with Hbg 6.9, TWBC 0.8, ANC 0 and plt 18 at admit
-Chest x-ray clear.
-Blood culture 1 set out of 3 growing streptococcus bovis.
-Currently empirically covered with vancomycin and cefepime. ID following help appreciated.
-Oncology following, patient got dose of filgrastim/granix.
2. Purulent drainage from abdominal skin
MRSA abdominal wall abscess
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
-Patient have history of abdominal hernia repair with mesh which likely has been infected
-Patient reported to having some drainage from surgical incision site small track, which dried for last [address] abdomen pelvis without contrast report as above.
-Clinically purulent drainage, cultured and growing MRSA
-Discussed with general surgery of consult and no indication for any debridement. Can be consulted if any concern of impartial drainage/expanding localized collection.
-Patient not a candidate for surgical mass removal. May require lifelong antibiotic suppressive therapy
3. AML
MDS
Pancytopenia
-Follows with Dr. Ramses Cruz,
-Got Vidaza on 01/17 and 01/18, could not finish 5-day course
-got 1 u prbc/1 u plt yesterday, getting 1 plt today
3. IDDM
-Maintain on home regimen of long-acting insulin with Premeal
-Will adjust further insulin dosing based on blood glucose response
4. Essential HTN
- continue on home dose of toprol xl
5. Permanent Afib
-Currently in rate controlled A-fib, continue Toprol
-Off of Coumadin with leukemia/pancytopenia
6. Asymptomatic bacteriuria
-Patient denies of any dysuria. Urine culture growing gram-negative bacilli/Enterococcus/streptococcus
-currently on broad-spectrum anti-bacterial for above mentioned infection
History of bladder cancer s/p chemoradiation
History of prostatectomy
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
Chronic kidney disease stage III
COPD
DNR/DNI
SCD
Total time spent : 52 mins
Care plan discussed with ID and GS
Anticipated Discharge: > 48 hours
Subjective/Interval History
-
Date of Service: January 25, 2024
afebrile in night
no other issues overnight
Objective Data
-
Labs:
Laboratory Results
01/25/24
07:34
WBC 0.5 L*
Hgb 7.4 L
Hct 21.4 L
Plt Count 15 L*
Sodium 139
Potassium 4.6
Chloride 110 H
Carbon Dioxide 16 L
BUN 46 H
Creatinine 1.6 H
Glucose 228 H
Calcium 8.7
Total Bilirubin 1.7 H
AST 179 H
ALT 125 H
Alkaline Phosphatase 119
Vital Signs:
Vital Signs
Temp Pulse Resp BP Pulse Ox
97.5 F 107 22 109/54 96
01/25/24 12:23 01/25/24 12:47 01/25/24 12:47 01/25/24 12:47 01/25/24 12:47
I&O
01/24/24 01/25/24 01/26/24
06:59 06:59 06:59
Intake Total 1540 / 1540 614 / 614 286 / 286
Output Total 1375 / 1375 1900 / 1900
Balance 165 / 165 -1286 / -1286 286 / 286
Review of Systems
-
Respiratory: Reports No Symptoms
Cardiac: Reports No Symptoms
Abdomen/GI: Reports No Symptoms
Physical Exam
-
General: No Apparent Distress and Comfortable
HEENT: Negative Oxygen
Respiratory: Clear to Auscultation
Cardiac: Regular Rhythm and S1/S2; Negative Murmur or Rub
GI: Soft, Nontender and Nondistended
Musculoskeletal: No Edema
Neuro: Awake, Alert, Oriented, No Motor Deficits and Nonfocal/Grossly Intact
Psych: Calm
--- NOTE | 2024-01-25 14:27 | WOUNDNOTE ---
R GREAT TOE TIP
--- NOTE | 2024-01-25 14:29 | WOUNDNOTE ---
ABDOMEN (small opening, approximately 2.9cm deep)
--- NOTE | 2024-01-25 14:29 | WOUNDNOTE ---
ABDOMEN (small opening, approximately 2.9cm deep)
[2024-01-25 16:34] LABS: Glucose - Point of Care 268 mg/dl (70-99)
[2024-01-25] MEDS: COLACE 100 MG PO (16:42)
[2024-01-25] MEDS: DUPHALAC/CHRONULAC 30 GRAMS PO ×2 (16:42→21:46)
[2024-01-25 21:39] LABS: Glucose - Point of Care 232 mg/dl (70-99)
[2024-01-25] MEDS: MELATONIN 5 MG PO (21:46)
[2024-01-25] MEDS: LANTUS 0.14 UNITS SC (21:50)
[2024-01-25] MEDS: GRANIX 480 MCG SC (21:51)
[2024-01-26] VITALS (9 sets, daily range): BP systolic 105–132; BP diastolic 57–84; BMI 25.0
[2024-01-26] MEDS: STERILE WATER FOR INJECTION 10 ML IV ×2 (01:08→14:23)
[2024-01-26] MEDS: MAXIPIME 2000 MG IV ×2 (01:08→14:23)
[2024-01-26 07:39] LABS: Vancomycin Random 14.4 ug/ml
[2024-01-26 07:48] LABS: Glucose - Point of Care 240 mg/dl (70-99)
[2024-01-26 07:58] LABS: Hematocrit 21.7 % (39.0-52.0); Hemoglobin 7.3 g/dL (13.0-18.0); Mean Corp Hgb Conc. 33.6 g/dL (33.0-37.0); Mean Corpuscular Volume 89.3 fL (80.0-94.0); Platelet Count 19 10^3/uL (130-400); Red Blood Cell Count 2.43 10^6/uL (4.70-6.10); Red Cell Dist. Width 16.8 % (11.5-14.5); White Blood Cell Count 0.6 10^3/uL (4.8-10.8)
[2024-01-26 08:03] LABS: ALT (SGPT) 317 U/L (0-50); AST (SGOT) 462 U/L (17-59); Alkaline Phosphatase 201 U/L (38-126); Blood Urea Nitrogen 42 mg/dl (9-20); Calcium 8.9 mg/dl (8.4-10.2); Carbon Dioxide 14 mmol/L (22-30); Chloride 110 mmol/L (98-107); Estimated Creatinine Clearance 43 ml/min; Glucose 220 mg/dl (70-99); Potassium 4.4 mmol/L (3.5-5.1); Sodium 142 mmol/L (135-145); Total Bilirubin 2.4 mg/dl (0.2-1.3); Total Protein 5.7 g/dl (6.3-8.2); eGFR 43.83
[2024-01-26 08:49] LABS: % Eosinophils 1.8 % (0-6); % Lymphocytes 66.1 % (20.5-51.1); % Monocytes 7.1 % (1.7-9.3); Absolute Lymphocytes 0.4 10^3/uL (1.2-3.4); Absolute Neutrophils 0.1 10^3/uL (1.4-6.5); Nucleated Red Blood Cells % 0 % (-)
[2024-01-26] MEDS: PROTONIX 40 MG PO ×2 (08:59→21:23)
[2024-01-26] MEDS: DUPHALAC/CHRONULAC 30 GRAMS PO (08:59)
[2024-01-26] MEDS: NOVOLOG FLEXPEN-LOW RESISTANCE 2 UNITS SC (09:03)
--- NOTE | 2024-01-26 10:34 | PHA.VAN.FU ---
Vancomycin Assessment / Plan
- Assessment
Renal Function: Stable
Neutropenia: ANC = 100
In the past 24 hrs, patient has been: Afebrile
Concomitant Antimicrobials: cefepime
- Assessment - Therapeutic Drug Monitoring
Random Level: 14.4 - drawn ~18H after previous dose of 1000mg
- Dosing Plan
Dosing by Level: Re-dose today (Vanc 1000mg)
- Monitoring Plan
Random Level: 01/26 06
- Follow Up
Pharmacy will continue to follow.
Vancomycin Follow UP
- -
Patient Age: 78
Patient Sex: Male
Vancomycin Day #: 4
Indication: Other
Requesting Provider: Tiffanie Costa
Pertinent Antimicrobial Allergies:
trimethoprim/sulfamethoxazole - lip swelling
tetracycline - 'penis swells up'
Height / Weight:
Height 6 ft 1 in
Actual Weight 85.899 kg
Pertinent Past Medical History: MDS/AML, CKD3
- Vital Signs / Lab Results
Temp Pulse Resp BP Pulse Ox
97.9 F 118 18 132/71 98
01/26/24 07:00 01/26/24 07:00 01/26/24 07:00 01/26/24 07:00 01/26/24 07:00
Lab Results - Hematology
01/23/24 01/24/24 01/25/24
13: 04:27 07:34
WBC 0.5 L* 0.8 L* 0.5 L*
Band Neutrophils 0
01/26/24
06:42
WBC 0.6 L*
Band Neutrophils
Lab Results - Chemistry
01/23/24 01/24/24 01/25/24
13:24 04:27 07:34
BUN 53 H 48 H 46 H
Creatinine 2.0 H 1.7 H 1.6 H
Estimated Creat Clear 33 40 43
Albumin 3.6 3.0 L 2.8 L
01/26/24
06:42
BUN 42 H
Creatinine 1.6 H
Estimated Creat Clear 43
Albumin 3.0 L
01/23/24 01/23/24
13:24 19:43
Lactic Acid 2.8 H 1.5
Microbiology Results
01/23/24 15:34 Urine Culture - Preliminary
Urine Gram negative bacilli
Enterococcus species
Streptococcus species
01/24/24 11:58 Wound Culture - Final
Abdomen Staph aureus MRSA
Gram Stain - Final
01/23/24 13:24 Blood Culture - Final
Blood/Venous Streptococcus bovis
Gram Stain - Final
01/23/24 15:45 Blood Culture - Preliminary
Blood/Venous No Growth in 48 hours- Final report to follow
01/23/24 15:34 Blood Culture - Preliminary
Blood/Venous No Growth in 48 hours- Final report to follow
Therapeutic Drug Monitoring
Random Vancomycin 14.4 ug/ml 01/26/24 06:42
--- NOTE | 2024-01-26 11:09 | CM ---
Chart reviewed and showcase trimmer met with patient and spouse to review discharge planning and they are adamant that patient return to home with resumption of care with [facility] when stable. They have declined palliative evaluation and alf
facility.
Plan; Home with [facility] with [facility].
[2024-01-26] MEDS: MIRALAX 17 GRAMS PO (11:45)
--- NOTE | 2024-01-26 12:00 | W.PN.ID1 ---
Date of Service
Date of Service: January 26, 2024
Today's Communication
Continue antibiotics.
Assessment / Plan
Febrile neutropenia.
- fevers improved. Patient remains profoundly neutropenic.
Bacteremia with Streptococcus bovis
Draining lower abdominal wound
- suspected Infected mesh
- Cultures with MRSA
Pancytopenia (anemia/neutropenia/thrombocytopenia); transfusion dependent
CKD
Transaminitis
- LFT's rising. ?2* cefepime
MDS/AML (transfusion dependent); on chemotherapy
Bladder cancer (2010); s/p radical cystectomy with urostomy placement
A-fib
HTN
DM
COPD / Interstitial lung disease
Recommendations:
Continue with vancomycin (for MRSA/Strep bovis)
Discontinue further cefepime.
Following Vanco levels closely given underlying renal insufficiency
Follow white count and temperature curve.
Repeat blood culture negative x 48 hours; will continue to monitor
Chief Complaint
-: Bacteremia and Other (Febrile neutropenia)
Subjective / Review of Systems
Review of Systems: No Fever, No Chills and No Abdominal Pain
Vital Signs / Physical Exam
Vital Signs
Vital Signs
Temp Pulse Resp BP Pulse Ox
97.9 F 118 18 132/71 98
01/26/24 07:00 01/26/24 07:00 01/26/24 07:00 01/26/24 07:00 01/26/24 07:00
Physical Exam
Constitutional: Comfortable, Chronically Ill and Non-toxic
Eyes: Sclera Anicteric
Cardiovascular: Regular Rate and S1/S2; Negative S3/S4
Pulmonary: Clear; Negative Wheezes or Rales
Gastrointestinal: Soft, Non Tender and Other (Lower abdominal wound draining purulent drainage.)
Genito-Urinary: Other (Urostomy in place)
Extremities: Edema; Negative Cyanosis or Erythema
Neurological: Awake and Alert
Psychological: Calm
Objective Data
Lab Data
Lab Results
01/26/24 06:42
01/26/24 06:42
PT 19.5 Sec (11.4-14.6) H 01/24/24 04:27
INR 1.67 01/24/24 04:27
APTT 47.9 Sec (23.4-35.0) H 01/24/24 04:27
Estimated Creat Clear 43 ml/min 01/26/24 06:42
Lactic Acid 1.5 mmol/L (0.7-2.0) 01/23/24 19:43
Total Bilirubin 2.4 mg/dl (0.2-1.3) H 01/26/24 06:42
AST 462 U/L (17-59) H 01/26/24 06:42
ALT 317 U/L (0-50) H 01/26/24 06:42
Alkaline Phosphatase 201 U/L (38-126) H 01/26/24 06:42
Most recent labs reviewed.
Micro Results:
01/23/24 15:34 Urine Culture - Preliminary
Urine Pseudomonas aeruginosa
Enterococcus faecalis
Streptococcus species
01/24/24 11:58 Wound Culture - Final
Abdomen Staph aureus MRSA
Gram Stain - Final
01/23/24 13:24 Blood Culture - Final
Blood/Venous Streptococcus bovis
Gram Stain - Final
01/23/24 15:45 Blood Culture - Preliminary
Blood/Venous No Growth in 48 hours- Final report to follow
01/23/24 15:34 Blood Culture - Preliminary
Blood/Venous No Growth in 48 hours- Final report to follow
01/23/24 15:34 Influenza Types A & B (ISABELLA) - Final
Nasal Swab Negative for Influenza A & B, NAAT
Negative results must be combined with clinical observations
and patient history.
Nucleic Acid Amplification test (NAAT)performed on the
[employer] platform.
Imaging:
01/23/2024 CXR (2 view): There is no parenchymal opacification or vascular congestion. The cardiomediastinal silhouettes are within the limits of normal. There is no pneumothorax, pleural effusion or mediastinal shift.
Care Review
Plan reviewed with: Physician (Hospitalist)
[2024-01-26 12:14] LABS: Glucose - Point of Care 304 mg/dl (70-99)
[2024-01-26] MEDS: NOVOLOG FLEXPEN 3 UNITS SC ×2 (12:42→17:29)
[2024-01-26] MEDS: NOVOLOG FLEXPEN-LOW RESISTANCE 4 UNITS SC (12:44)
--- NOTE | 2024-01-26 13:00 | W.PN.ONC ---
Today's Communication / Plan
-
transfuse 1 unit plts today
follow CBC
antibiotics as per ID
Impression
Impression
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
No evidence acute DIC
Recent GIB, monitor for bleeding
neutropenic fever
anterior pelvic wall abscess 1.7 x 4.0 x 3.0 cm
streptococcus bovis bacteremia
fecal impaction
Plan
Plan
Neutropenic precautions. Daily GCSF in setting of severe neutropenia and febrile illness. Benefit of GCSF outweighs risk.
ID following. streptococcus bacteremia and pelvic wall abscess
Transfuse packed RBC for hemoglobin less than 8 or as needed for symptomatic anemia
Transfuse SDP if platelets <20 in setting of neutropenic fever, <50 prn bleeding - 1 unit plts today
continue to hold anticoagulation the setting of severe thrombocytopenia
follow-up with Dr. Cruz for continued EPO and hypomethylating agent support upon discharge
Subjective/Objective
Subjective/Objective
afebrile, NAD
Vital Signs:
Vital Signs
Temp Pulse Resp BP Pulse Ox
97.9 F 118 18 132/71 98
01/26/24 07:00 01/26/24 07:00 01/26/24 07:00 01/26/24 07:00 01/26/24 07:00
Lab Results:
Laboratory Data
WBC 0.6 10^3/uL (4.8-10.8) L* 01/26/24 06:42
Hgb 7.3 g/dL (13.0-18.0) L 01/26/24 06:42
Plt Count 19 10^3/uL (130-400) L* D 01/26/24 06:42
PT 19.5 Sec (11.4-14.6) H 01/24/24 04:27
INR 1.67 01/24/24 04:27
APTT 47.9 Sec (23.4-35.0) H 01/24/24 04:27
eGFR 43.83 01/26/24 06:42
Exam: unchanged
Orders
Orders
Orders From Last 24 Hours
01/26/24 11:17
* Blood Bank Products Routine
[2024-01-26] MEDS: VANCOCIN 200 IV (13:09)
--- NOTE | 2024-01-26 14:25 | W.PN.HOSP.TC ---
Today's Communication/Plan
-
see note
Assessment / Plan
Assessment / Plan
CT a/p
1).There is low-density collection in the anterior pelvic wall measuring 1.7 x 4.0 x 3.0 cm in AP, transverse and craniocaudal dimensions respectively consistent with abscess and associated with a linear soft tissue density extending to the anterior
skin surface which, given the patient's clinical history, I suspect this fistula from the abscess to the skin surface
2).There is moderate feces in rectum suggesting fecal impaction with associated perirectal edema suggesting stercoral colitis
3).There is cystectomy, and ureteral diversion with right lower quadrant urostomy
4).There is moderate left-sided renal cortical atrophy
There is 2 mm nonobstructing calculus in the midportion of the left kidney

1. Neutropenic fever
Streptococcus bovis bacteremia
-Presented for generalized weakness. Found to be febrile in the ER
-Pancytopenic with Hbg 6.9, TWBC 0.8, ANC 0 and plt 18 at admit
-Chest x-ray clear.
-Blood culture 1 set out of 3 growing streptococcus bovis. C-scope in November showing high grade dysplastic polyp.
-Currently empirically covered with vancomycin and cefepime. ID following help appreciated.
-Oncology following, patient got dose of filgrastim/granix.
2. Purulent drainage from abdominal skin
MRSA abdominal wall abscess
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
-Patient have history of abdominal hernia repair with mesh which likely has been infected
-Patient reported to having some drainage from surgical incision site small track, which dried for last [address] abdomen pelvis without contrast report as above.
-Clinically purulent drainage, cultured and growing MRSA
-Discussed with general surgery of consult and no indication for any debridement. Can be consulted if any concern of impartial drainage/expanding localized collection.
-Patient not a candidate for surgical mass removal. May require lifelong antibiotic suppressive therapy
3. AML
MDS
Pancytopenia
-Follows with Dr. Ramses Cruz,
-Got Vidaza on 01/17 and 01/18, could not finish 5-day course
-got 1 u prbc/getting 3 unit of platelet today
4. Acute transaminitis
-LFT has been trending up. ALT 317 AST 462 total bilirubin 2.4 and ALP [address] abdomen pelvis did not show any liver parenchymal abnormalities
-Not on any hepatotoxic medication. Patient chemo med/Vidaza does not cause transaminitis
5. IDDM
-Maintain on home regimen of long-acting insulin with Premeal
-Will adjust further insulin dosing based on blood glucose response
6. Essential HTN
- continue on home dose of toprol xl
7. Permanent Afib
-Currently in rate controlled A-fib, continue Toprol
-Off of Coumadin with leukemia/pancytopenia
8. Asymptomatic bacteriuria
-Patient denies of any dysuria. Urine culture growing gram-negative bacilli/Enterococcus/streptococcus
-currently on broad-spectrum anti-bacterial for above mentioned infection
9. VERNA on CKDIIIB
-Cr trending down and close to baseline 1.6-1.7
10. Severe constipation
-CT abdomen pelvis showing possible fecal impaction with large amount of stool in rectum
-Patient had good bowel movement with Dulcolax suppository and oral laxative therapy
-Patient feels not relieved completely, provide x1 enema
History of bladder cancer s/p chemoradiation
History of prostatectomy
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
COPD
DNR/DNI
SCD
Care plan discussed with ID/GI
Total time spent : 51 mins
I personally saw and examined the patient.
I have reviewed all diagnostic interpretations and treatment plans as written.
Time includes patient management by me, time spent at the patients bedside, time to review lab and imaging results, discussing patient care, documentation in the medical record, and time spent with the family or caregiver and discussing care plan
with RN/Consultants.
Anticipated Discharge: > 48 hours
Subjective/Interval History
-
Date of Service: January 26, 2024
Denies any abdominal pain, had charted large bowel movement although does not felt completely relieved
Afebrile overnight
Objective Data
-
Labs:
Laboratory Results
01/26/24
06:42
WBC 0.6 L*
Hgb 7.3 L
Hct 21.7 L
Plt Count 19 L* D
Sodium 142
Potassium 4.4
Chloride 110 H
Carbon Dioxide 14 L*
BUN 42 H
Creatinine 1.6 H
Glucose 220 H
Calcium 8.9
Total Bilirubin 2.4 H
AST 462 H
ALT 317 H
Alkaline Phosphatase 201 H
Vital Signs:
Vital Signs
Temp Pulse Resp BP Pulse Ox
97.9 F 118 18 132/71 98
01/26/24 07:00 01/26/24 07:00 01/26/24 07:00 01/26/24 07:00 01/26/24 07:00
I&O
01/25/24 01/26/24 01/27/24
06:59 06:59 06:59
Intake Total 614 / 614 1126 / 1126
Output Total 1900 / 1900 1700 / 1700
Balance -1286 / -1286 -574 / -574
Review of Systems
-
Respiratory: Reports No Symptoms
Cardiac: Reports No Symptoms
Abdomen/GI: Reports Constipated
Physical Exam
-
General: No Apparent Distress and Comfortable
HEENT: Negative Oxygen
Respiratory: Clear to Auscultation
Cardiac: Regular Rhythm and S1/S2; Negative Murmur or Rub
GI: Soft, Nontender and Nondistended
Musculoskeletal: No Edema
Neuro: Awake, Alert, Oriented, No Motor Deficits and Nonfocal/Grossly Intact
Psych: Calm
--- NOTE | 2024-01-26 14:49 | CON.GI ---
Consultation
-
Date/Time Consultation Performed: 01/26/24
Performing Provider: Rob Peña MD
Reason for Consultation: elevated LFT
Medical History
Chief Complaint / HPI
Chief Complaint: fever
History of Present Illness:
The patient is a 78-year-old male with past medical history as noted who presents with fever. He has a history of MDS/AML on chemotherapy, with neutropenic fever. We are consulted for elevated LFTs. His workup here has shown cultures positive for
MRSA from abdominal wound infection and blood cultures positive for strep bovis. He denies any specific new abdominal pain besides his abdominal wound, though does have nausea and vomiting weakness around the time of his fever. He had a
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 Julian, with post polypectomy bleed which was self-limited. He does have episodes of documented relative hypotension over the past
several days, and has been on cefepime as well as other antibiotics including vancomycin. He does have Tylenol ordered though has not received any doses since the .
Past Medical History
Past Medical History: Other (MDS/AML, Permanent Atrial Fibrillation Hypertension DM-II Bladder Cancer s/p TURBT and Systemic Chemo 2010 and permaent Ileal Conduit GERD DJD / DDD COPD, colon polyp with post polypectomy bleed)
Past Surgical History: Other (adical cystectomy/prostatectomy Appendectomy Ventral hernia repair (with mesh; 2004) Cholecystectomy Ileal conduit formation)
Social History
Tobacco: Non-Smoker
Alcohol: None
Family History
Family History: Reviewed & Not Pertinent
Allergies / Home Medications
Allergy/AdvReac Type Severity Reaction Status Date / Time
pollen extracts Allergy SEASONAL-NASAL Verified 11/24/23 12:06
SYMPTOMS
sulfamethoxazole Allergy lip Verified 11/24/23 12:06
[From Bactrim] swelling
tetracycline Allergy Swelling/'penis Verified 11/24/23 12:06
swells up'.
trimethoprim [From Bactrim] Allergy lip Verified 11/24/23 12:06
swelling
�Medication �Instructions �Recorded
acetaminophen 650 mg 650 mg PO Q8HPRN PRN mild pain 03/15/23
tablet,extended release
insulin aspart U-100 100 unit/mL 6 units SC BID@0800,1200 Diabetes 03/15/23
(3 mL) subcutaneous pen (Novolog
FlexPen U-100 Insulin aspart)
insulin aspart U-100 100 unit/mL 8 unit SC QPM Diabetes 03/15/23
(3 mL) subcutaneous pen (Novolog
FlexPen U-100 Insulin aspart)
omeprazole 40 mg capsule,delayed 40 mg PO BID Gastrointestinal Issue 05/31/23
release
melatonin 5 mg tablet 5 mg PO HS sleep 06/05/23
insulin degludec 100 unit/mL (3 28 unit SC HS Diabetes 11/24/23
mL) subcutaneous pen
metoprolol succinate 25 mg 25 mg PO DAILY Heart 11/24/23
tablet,extended release 24 hr Disease/Condition
(Toprol XL)
ondansetron 8 mg disintegrating 8 mg PO Q8HPRN PRN chemo treatment 01/03/24
tablet
docusate sodium 100 mg capsule 100 mg PO QPM stool softener 01/23/24
(Colace)
docusate sodium 100 mg capsule 200 mg PO DAILY stool softener 01/23/24
(Colace)
Review of Systems
-
All other systems: A 12 pt ROS was Negative except as stated above in HPI
Vital Signs
Temp Pulse Resp BP Pulse Ox
97.9 F 118 18 132/71 98
01/26/24 07:00 01/26/24 07:00 01/26/24 07:00 01/26/24 07:00 01/26/24 07:00
Physical Exam
Exam
General: NAD, thin appearing
HEENT: Mucous membranes dry, anicteric, no lymphadenopathy
Heart: Regular, no murmurs
Lungs: CTA bilaterally
Abdomen: normal bowel sounds, soft, no tenderness, no rebound or guarding, no masses, bruits or ascites, ileal conduit in the right lower quadrant, bandage intact in the midline
Extremeties: no edema
Skin: no rashes
Results
WBC 0.6 10^3/uL (4.8-10.8) L* 01/26/24 06:42
Hgb 7.3 g/dL (13.0-18.0) L 01/26/24 06:42
Hct 21.7 % (39.0-52.0) L 01/26/24 06:42
MCV 89.3 fL (80.0-94.0) 01/26/24 06:42
Plt Count 19 10^3/uL (130-400) L* D 01/26/24 06:42
Absolute Neuts (auto) 0.1 10^3/uL (1.4-6.5) L* 01/26/24 06:42
PT 19.5 Sec (11.4-14.6) H 01/24/24 04:27
INR 1.67 01/24/24 04:27
APTT 47.9 Sec (23.4-35.0) H 01/24/24 04:27
Sodium 142 mmol/L (135-145) 01/26/24 06:42
Potassium 4.4 mmol/L (3.5-5.1) 01/26/24 06:42
Chloride 110 mmol/L (98-107) H 01/26/24 06:42
Carbon Dioxide 14 mmol/L (22-30) L* 01/26/24 06:42
BUN 42 mg/dl (9-20) H 01/26/24 06:42
Creatinine 1.6 mg/dL (0.7-1.3) H 01/26/24 06:42
Calcium 8.9 mg/dl (8.4-10.2) 01/26/24 06:42
Total Bilirubin 2.4 mg/dl (0.2-1.3) H 01/26/24 06:42
AST 462 U/L (17-59) H 01/26/24 06:42
ALT 317 U/L (0-50) H 01/26/24 06:42
Alkaline Phosphatase 201 U/L (38-126) H 01/26/24 06:42
Diagnostic Image Results:
CT:
IMPRESSION:
1).There is low-density collection in the anterior pelvic wall measuring 1.7 x 4.0 x 3.0 cm in AP, transverse and craniocaudal dimensions respectively consistent with abscess and associated with a linear soft tissue density extending to the anterior
skin surface which, given the patient's clinical history, I suspect this fistula from the abscess to the skin surface
2).There is moderate feces in rectum suggesting fecal impaction with associated perirectal edema suggesting stercoral colitis
3).There is cystectomy, and ureteral diversion with right lower quadrant urostomy
4).There is moderate left-sided renal cortical atrophy
There is 2 mm nonobstructing calculus in the midportion of the left kidney
Prior GI Procedures:
EGD:
09/28:
Impression: - Tortuous esophagus.
- Normal mucosa was found in the entire esophagus.
Biopsied.
- Gastritis. Biopsied.
- A few gastric polyps.
- Normal examined duodenum.
Colonoscopy:
11/28:
Impression: - Hemorrhoids found on perianal exam.
- The examined portion of the ileum was normal.
- One 45 mm polyp in the ascending colon, removed with
mucosal resection. Resected and retrieved. Treated
with argon plasma coagulation (APC). Clips (MR
conditional) were placed.
- Three 4 to 9 mm polyps in the ascending colon,
removed with a cold snare. Resected and retrieved.
- Internal hemorrhoids.
- Mucosal resection was performed. Resection and
retrieval were complete.
Assessment / Plan
-
1. Elevated LFTs: In a mild necroinflammatory pattern, the setting of neutropenia secondary to chemotherapy, with underlying MDS/AML, likely multifactorial. There is likely some component of bacteremia/infection, as well as antibiotics and
possible underlying low flow given documented hypotension. Given his immunocompromise status other infections are possible including opportunistic infections as well as reactivation hepatitis B. At this point we will check hepatitis panel,
ultrasound with Dopplers and continue close observation. If do not start to respond then we will consider workup for HSV/CMV/EBV etc. will continue to trend for now.
-
-
Thank you for consultation and allowing me to participate in the patient's care. Please call the visual education director GI physician during the after hours with any questions or concerns.
[2024-01-26 17:13] LABS: Glucose - Point of Care 298 mg/dl (70-99)
[2024-01-26] MEDS: NOVOLOG FLEXPEN-LOW RESISTANCE 3 UNITS SC (17:29)
[2024-01-26] MEDS: COLACE 100 MG PO (17:29)
[2024-01-26] MEDS: LANTUS 0.14 UNITS SC (21:23)
[2024-01-26] MEDS: MELATONIN 5 MG PO (21:23)
[2024-01-26] MEDS: GRANIX 480 MCG SC (21:25)
[2024-01-26 21:37] LABS: Glucose - Point of Care 207 mg/dl (70-99)
[2024-01-27] VITALS (9 sets, daily range): BP systolic 105–145; BP diastolic 56–82; BMI 25.1
[2024-01-27] MEDS: MAXIPIME 2000 MG IV ×2 (01:04→13:12)
[2024-01-27] MEDS: STERILE WATER FOR INJECTION 10 ML IV ×2 (01:04→13:12)
[2024-01-27 06:20] LABS: Hematocrit 19.8 % (39.0-52.0); Hemoglobin 6.9 g/dL (13.0-18.0); Mean Corp Hgb Conc. 34.8 g/dL (33.0-37.0); Mean Corpuscular Hgb 31.5 pg (27.0-31.0); Mean Corpuscular Volume 90.4 fL (80.0-94.0); Mean Platelet Volume 10.3 fL (7.4-10.4); Platelet Count 22 10^3/uL (130-400); Red Blood Cell Count 2.19 10^6/uL (4.70-6.10); Red Cell Dist. Width 16.6 % (11.5-14.5); White Blood Cell Count 0.6 10^3/uL (4.8-10.8)
[2024-01-27 06:35] LABS: ALT (SGPT) 218 U/L (0-50); AST (SGOT) 132 U/L (17-59); Albumin 2.9 g/dl (3.5-5.0); Alkaline Phosphatase 174 U/L (38-126); Blood Urea Nitrogen 40 mg/dl (9-20); Calcium 8.8 mg/dl (8.4-10.2); Carbon Dioxide 18 mmol/L (22-30); Chloride 107 mmol/L (98-107); Estimated Creatinine Clearance 40 ml/min; Glucose 173 mg/dl (70-99); Potassium 4.4 mmol/L (3.5-5.1); Sodium 137 mmol/L (135-145); Total Bilirubin 2.2 mg/dl (0.2-1.3); Total Protein 5.4 g/dl (6.3-8.2); eGFR 40.75
[2024-01-27 08:19] LABS: Glucose - Point of Care 195 mg/dl (70-99)
--- NOTE | 2024-01-27 08:23 | W.PN.ONC ---
Today's Communication / Plan
-
Neutropenic precautions. Daily GCSF in setting of severe neutropenia and febrile illness. Benefit of GCSF outweighs risk.
ID following. streptococcus bacteremia and pelvic wall abscess
Transfuse packed RBC for hemoglobin less than 8 or as needed for symptomatic anemia Hemoglobin 6.9 today
Transfuse SDP if platelets <20 in setting of neutropenic fever, <50 prn bleeding - 1 unit plts today Platelets 22 post transfusion
Hold anticoagulation the setting of severe thrombocytopenia
follow-up with Dr. Cruz for continued EPO and hypomethylating agent support upon discharge
Impression
Impression
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
No evidence acute DIC
Recent GIB, monitor for bleeding
neutropenic fever
anterior pelvic wall abscess 1.7 x 4.0 x 3.0 cm
streptococcus bovis bacteremia
fecal impaction
Subjective/Objective
Subjective/Objective
Patient without new complaints.Notices some fatigue and exertional dyspnea
Vital Signs:
Vital Signs
Temp Pulse Resp BP Pulse Ox
97.6 F 101 18 127/69 96
01/27/24 03:35 01/27/24 03:35 01/27/24 03:35 01/27/24 03:35 01/27/24 03:35
Physical exam unchanged
Lab Results:
Laboratory Data
WBC 0.6 10^3/uL (4.8-10.8) L* 01/27/24 05:25
Hgb 6.9 g/dL (13.0-18.0) L* 01/27/24 05:25
Plt Count 22 10^3/uL (130-400) L* 01/27/24 05:25
PT 19.5 Sec (11.4-14.6) H 01/24/24 04:27
INR 1.67 01/24/24 04:27
APTT 47.9 Sec (23.4-35.0) H 01/24/24 04:27
eGFR 40.75 01/27/24 05:25
[2024-01-27] MEDS: NOVOLOG FLEXPEN-LOW RESISTANCE SC (08:39)
[2024-01-27] MEDS: PROTONIX 40 MG PO ×2 (08:52→20:37)
[2024-01-27] MEDS: MIRALAX 17 GRAMS PO (08:52)
[2024-01-27] MEDS: NOVOLOG FLEXPEN SC (08:52)
[2024-01-27] MEDS: NOVOLOG FLEXPEN-LOW RESISTANCE 1 UNITS SC ×2 (08:53→12:17)
--- NOTE | 2024-01-27 09:00 | PHA.VAN.FU ---
Vancomycin Assessment / Plan
- Assessment
Renal Function: SCR Increasing (1.6->1.7)
Neutropenia: 0.6 (Daily GSF in setting of severe neutropenia -MDS/AML)
In the past 24 hrs, patient has been: Afebrile
Concomitant Antimicrobials: cefepime
- Assessment - Therapeutic Drug Monitoring
Random Level: 16.0 (~16.5 hours post 1000 mg dose yesterday)
- Dosing Plan
Dosing by Level: Re-dose today (750 mg x 1 dose)
- Monitoring Plan
Random Level: repeat random AM 01/27
- Follow Up
Pharmacy will continue to follow.
Vancomycin Follow UP
- -
Patient Age: 78
Patient Sex: Male
Vancomycin Day #: 5
Indication: Other
Requesting Provider: Tiffanie Melendrez / Igor
Pertinent Antimicrobial Allergies:
trimethoprim/sulfamethoxazole - lip swelling
tetracycline - 'penis swells up'
Height / Weight:
Height 6 ft 1 in
Actual Weight 86.211 kg
Pertinent Past Medical History: MDS/AML, CKD3
- Vital Signs / Lab Results
Temp Pulse Resp BP Pulse Ox
98.0 F 110 20 112/62 100
01/27/24 07:00 01/27/24 07:00 01/27/24 07:00 01/27/24 07:00 01/27/24 07:00
Lab Results - Hematology
01/25/24 01/26/24 01/27/24
07:34 06:42 05:25
WBC 0.5 L* 0.6 L* 0.6 L*
Lab Results - Chemistry
01/25/24 01/26/24 01/27/24
07:34 06:42 05:25
BUN 46 H 42 H 40 H
Creatinine 1.6 H 1.6 H 1.7 H
Estimated Creat Clear 43 43 40
Albumin 2.8 L 3.0 L 2.9 L
Microbiology Results
01/23/24 15:34 Urine Culture - Preliminary
Urine Pseudomonas aeruginosa
Enterococcus faecalis
Streptococcus species
01/23/24 15:45 Blood Culture - Preliminary
Blood/Venous No Growth in 72 hours- Final report to follow
01/23/24 15:34 Blood Culture - Preliminary
Blood/Venous No Growth in 72 hours- Final report to follow
01/23/24 13:24 Blood Culture - Final
Blood/Venous Streptococcus bovis
Gram Stain - Final
01/24/24 11:58 Wound Culture - Final
Abdomen Staph aureus MRSA
Gram Stain - Final
Therapeutic Drug Monitoring
Random Vancomycin 16.0 ug/ml 01/27/24 05:25
--- NOTE | 2024-01-27 09:54 | W.PN.UPDATE ---
Update Note
Progress Note Update
Patient off the floor at ultrasound. LFTs reviewed which are improving, hepatitis panel and ultrasound still pending. Will continue to trend for now.
[2024-01-27] MEDS: VANCOCIN 150 IV (11:28)
[2024-01-27] MEDS: ANESTHETIC LOZENGE 1 LOZENGE PO (11:28)
[2024-01-27 11:37] LABS: % Basophils 1.6 % (0-2); % Eosinophils 1.6 % (0-6); % Immature Granulocytes 1.6 % (0-0.5); % Lymphocytes 68.3 % (20.5-51.1); % Monocytes 12.7 % (1.7-9.3); % Neutrophils 14.2 % (42.2-75.2); Absolute Lymphocytes 0.4 10^3/uL (1.2-3.4); Absolute Monocytes 0.1 10^3/uL (0.1-0.6); Absolute Neutrophils 0.1 10^3/uL (1.4-6.5); Nucleated Red Blood Cells % 0 % (-)
--- NOTE | 2024-01-27 11:58 | W.PN.ID1 ---
Date of Service
Date of Service: January 27, 2024
Today's Communication
Continue Vancomycin.
Assessment / Plan
Febrile neutropenia.
- fevers improved. Patient remains profoundly neutropenic.
Bacteremia with Streptococcus bovis
Draining lower abdominal wound
- suspected Infected mesh.
-CT shows abscess extending to skin. No indication for surgery, per Surgery.
- Cultures with MRSA
Pancytopenia (anemia/neutropenia/thrombocytopenia); transfusion dependent
CKD
Transaminitis
- LFT's rising. ?2* cefepime
MDS/AML (transfusion dependent); on chemotherapy
Bladder cancer (2010); s/p radical cystectomy with urostomy placement
A-fib
HTN
DM
COPD / Interstitial lung disease
Recommendations:
Continue with vancomycin (for MRSA/Strep bovis)
Following Vanco levels closely given underlying renal insufficiency
Follow white count and temperature curve.
Repeat blood culture negative x 48 hours; will continue to monitor
Chief Complaint
-: Bacteremia and Other (Febrile neutropenia)
Subjective / Review of Systems
Feels worse today. Tired and weak.
Vital Signs / Physical Exam
Vital Signs
Vital Signs
Temp Pulse Resp BP Pulse Ox
97.3 F 104 18 114/59 99
01/27/24 11:00 01/27/24 11:00 01/27/24 11:00 01/27/24 11:00 01/27/24 11:00
Physical Exam
Constitutional: Chronically Ill
Eyes: Sclera Anicteric
Oropharyngeal: Negative Exudate or Thrush
Cardiovascular: S1/S2 and Other (tachy)
Pulmonary: Clear
Gastrointestinal: Soft, Non Tender, Non Distended and Other (dressing mild yellow strikethrough)
Genito-Urinary: Clear Urine (ileostomy); Negative CVA Tenderness
Neurological: Awake and Alert
Physical Exam:
01/24/24 CT a/p: There is low-density collection in the anterior pelvic wall measuring 1.7 x 4.0 x 3.0 cm in AP, transverse and craniocaudal dimensions respectively consistent with abscess and associated with a linear soft tissue density extending to
the anterior skin surface which, given the patient's clinical history, I suspect this fistula from the abscess to the skin surface
Objective Data
Lab Data
Lab Results
01/27/24 05:25
01/27/24 05:25
PT 19.5 Sec (11.4-14.6) H 01/24/24 04:27
INR 1.67 01/24/24 04:27
APTT 47.9 Sec (23.4-35.0) H 01/24/24 04:27
Estimated Creat Clear 40 ml/min 01/27/24 05:25
Lactic Acid 1.5 mmol/L (0.7-2.0) 01/23/24 19:43
Total Bilirubin 2.2 mg/dl (0.2-1.3) H 01/27/24 05:25
AST 132 U/L (17-59) H 01/27/24 05:25
ALT 218 U/L (0-50) H 01/27/24 05:25
Alkaline Phosphatase 174 U/L (38-126) H 01/27/24 05:25
Most recent labs reviewed.
Micro Results:
01/23/24 15:34 Urine Culture - Final
Urine Pseudomonas aeruginosa
Pseudomonas aeruginosa#2
Enterococcus faecalis
Streptococcus species
01/23/24 15:45 Blood Culture - Preliminary
Blood/Venous No Growth in 72 hours- Final report to follow
01/23/24 15:34 Blood Culture - Preliminary
Blood/Venous No Growth in 72 hours- Final report to follow
01/23/24 13:24 Blood Culture - Final
Blood/Venous Streptococcus bovis
Gram Stain - Final
01/24/24 11:58 Wound Culture - Final
Abdomen Staph aureus MRSA
Gram Stain - Final
01/23/24 15:34 Influenza Types A & B (ISABELLA) - Final
Nasal Swab Negative for Influenza A & B, NAAT
Negative results must be combined with clinical observations
and patient history.
Nucleic Acid Amplification test (NAAT)performed on the
[employer] platform.
Imaging:
01/23/2024 CXR (2 view): There is no parenchymal opacification or vascular congestion. The cardiomediastinal silhouettes are within the limits of normal. There is no pneumothorax, pleural effusion or mediastinal shift.
[2024-01-27 12:02] LABS: Glucose - Point of Care 180 mg/dl (70-99)
[2024-01-27] MEDS: NOVOLOG FLEXPEN 3 UNITS SC ×2 (12:17→17:10)
[2024-01-27] MEDS: OASIS 1 SPRAY PO ×2 (12:18→17:10)
--- NOTE | 2024-01-27 13:40 | VATNOTE ---
Previous left arm infiltrate re-assessed. Pt states swelling has improved. Warm compress provided.
--- NOTE | 2024-01-27 14:23 | W.PN.HOSP.TC ---
Today's Communication/Plan
-
maintain on abx
f/u blood counts
LFT improving
US abd neg.
Assessment / Plan
Assessment / Plan
CT a/p
1).There is low-density collection in the anterior pelvic wall measuring 1.7 x 4.0 x 3.0 cm in AP, transverse and craniocaudal dimensions respectively consistent with abscess and associated with a linear soft tissue density extending to the anterior
skin surface which, given the patient's clinical history, I suspect this fistula from the abscess to the skin surface
2).There is moderate feces in rectum suggesting fecal impaction with associated perirectal edema suggesting stercoral colitis
3).There is cystectomy, and ureteral diversion with right lower quadrant urostomy
4).There is moderate left-sided renal cortical atrophy
There is 2 mm nonobstructing calculus in the midportion of the left kidney

1. Neutropenic fever
Streptococcus bovis bacteremia
-Presented for generalized weakness. Found to be febrile in the ER
-Pancytopenic with Hbg 6.9, TWBC 0.8, ANC 0 and plt 18 at admit
-Chest x-ray clear.
-Blood culture 1 set out of 3 growing streptococcus bovis. C-scope in November showing high grade dysplastic polyp.
-Currently empirically covered with vancomycin and cefepime. ID following help appreciated.
-Oncology following, patient got dose of filgrastim/granix.
2. Purulent drainage from abdominal skin
MRSA abdominal wall abscess
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
-Patient have history of abdominal hernia repair with mesh which likely has been infected
-Patient reported to having some drainage from surgical incision site small track, which dried for last [address] abdomen pelvis without contrast report as above.
-Clinically purulent drainage, cultured and growing MRSA
-Discussed with general surgery of consult and no indication for any debridement. Can be consulted if any concern of impartial drainage/expanding localized collection.
-Patient not a candidate for surgical mass removal. May require lifelong antibiotic suppressive therapy
3. AML
MDS
Pancytopenia
-Follows with Dr. Ramses Cruz,
-Got Vidaza on 01/17 and 01/18, could not finish 5-day course
-Getting PRBC/platelets as needed. Second unit PRBC ordered today. Got 3 platelets so far.
4. Acute transaminitis
-LFT yesterday ALT 317 AST 462 total bilirubin 2.4 and ALP 201
-Trending down today
-CT abdomen pelvis did not show any liver parenchymal abnormalities
-Not on any hepatotoxic medication. Patient chemo med/Vidaza does not cause transaminitis
-Hepatitis panel pending
-Abd US negative.
5. IDDM
-Maintain on home regimen of long-acting insulin with Premeal
-Will adjust further insulin dosing based on blood glucose response
6. Essential HTN
- continue on home dose of Toprol xl
7. Permanent Atrial fib
-Currently in rate controlled A-fib, continue Toprol
-Off of Coumadin with leukemia/pancytopenia
8. Asymptomatic bacteriuria
-Patient denies of any dysuria. Urine culture growing gram-negative bacilli/Enterococcus/streptococcus
-currently on broad-spectrum anti-bacterial for above mentioned infection
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
-Cr trending down and close to baseline 1.6-1.7
10. Severe constipation
-CT abdomen pelvis showing possible fecal impaction with large amount of stool in rectum
-Patient had good bowel movement with Dulcolax suppository and oral laxative therapy
-Patient did not feel completely felt relieved, so enema provided on Monday
-Check abdominal x-ray in the morning to assess residual stool amount
History of bladder cancer s/p chemoradiation
History of prostatectomy
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
COPD
DNR/DNI
SCD
Anticipated Discharge: > 48 hours
Subjective/Interval History
-
Date of Service: January 27, 2024
No issues overnight
Patient still feeling constipated and states he is leaking with laxative
No bleeding diathesis
Afebrile overnight
Objective Data
-
Labs:
Laboratory Results
01/27/24
05:25
WBC 0.6 L*
Hgb 6.9 L*
Hct 19.8 L*
Plt Count 22 L*
Sodium 137
Potassium 4.4
Chloride 107
Carbon Dioxide 18 L
BUN 40 H
Creatinine 1.7 H
Glucose 173 H
Calcium 8.8
Total Bilirubin 2.2 H
AST 132 H
ALT 218 H
Alkaline Phosphatase 174 H
Vital Signs:
Vital Signs
Temp Pulse Resp BP Pulse Ox
97.3 F 104 18 114/59 99
01/27/24 11:00 01/27/24 11:00 01/27/24 11:00 01/27/24 11:00 01/27/24 11:00
I&O
01/26/24 01/27/24 01/28/24
06:59 06:59 06:59
Intake Total 1126 / 1126 957 / 957
Output Total 1700 / 1700 1550 / 1550
Balance -574 / -574 -593 / -593
Review of Systems
-
Respiratory: Reports No Symptoms
Cardiac: Reports No Symptoms
Abdomen/GI: Reports Abdominal Pain; Denies Nausea or Vomiting
Physical Exam
-
General: No Apparent Distress and Comfortable
HEENT: Negative Oxygen
Respiratory: Clear to Auscultation
Cardiac: Regular Rhythm and S1/S2; Negative Murmur or Rub
GI: Soft, Nontender and Nondistended
Musculoskeletal: No Edema
Neuro: Awake, Alert, Oriented, No Motor Deficits and Nonfocal/Grossly Intact
Psych: Calm
[2024-01-27 16:55] LABS: Glucose - Point of Care 246 mg/dl (70-99)
[2024-01-27] MEDS: SODIUM BICARBONATE 1300 MG PO ×2 (17:10→21:22)
[2024-01-27] MEDS: COLACE 100 MG PO (17:10)
[2024-01-27] MEDS: NOVOLOG FLEXPEN-LOW RESISTANCE 2 UNITS SC (17:11)
[2024-01-27] MEDS: LANTUS 0.14 UNITS SC (21:22)
[2024-01-27] MEDS: MELATONIN 5 MG PO (21:22)
[2024-01-27] MEDS: OASIS 2 SPRAY PO (21:24)
[2024-01-27] MEDS: GRANIX 480 MCG SC (21:24)
[2024-01-27 21:52] LABS: Glucose - Point of Care 257 mg/dl (70-99)
[2024-01-28] MEDS: MAXIPIME 2000 MG IV ×2 (01:44→16:08)
[2024-01-28] MEDS: STERILE WATER FOR INJECTION 10 ML IV ×2 (01:45→16:08)
[2024-01-28 03:32] VITALS: BP 141/73
[2024-01-28 06:00] VITALS: BMI 25.1
[2024-01-28 07:05] LABS: Glucose - Point of Care 226 mg/dl (70-99)
[2024-01-28 07:39] VITALS: BP 121/74
[2024-01-28 08:39] LABS: % Immature Granulocytes 12.2 % (0-0.5); % Lymphocytes 69.4 % (20.5-51.1); % Monocytes 4.1 % (1.7-9.3); % Neutrophils 14.3 % (42.2-75.2); Absolute Immature Granulocytes 0.1 10^3/uL (0-0.05); Absolute Lymphocytes 0.3 10^3/uL (1.2-3.4); Absolute Neutrophils 0.1 10^3/uL (1.4-6.5); Hematocrit 24.1 % (39.0-52.0); Hemoglobin 7.9 g/dL (13.0-18.0); Mean Corp Hgb Conc. 32.8 g/dL (33.0-37.0); Mean Corpuscular Hgb 29.2 pg (27.0-31.0); Mean Corpuscular Volume 88.9 fL (80.0-94.0); Nucleated Red Blood Cells % 0 % (-); Platelet Count 18 10^3/uL (130-400); Red Blood Cell Count 2.71 10^6/uL (4.70-6.10); Red Cell Dist. Width 16.8 % (11.5-14.5); White Blood Cell Count 0.5 10^3/uL (4.8-10.8)
[2024-01-28 08:48] LABS: Vancomycin Random 14.5 ug/ml
[2024-01-28 09:00] LABS: ALT (SGPT) 185 U/L (0-50); AST (SGOT) 129 U/L (17-59); Albumin 3.2 g/dl (3.5-5.0); Alkaline Phosphatase 173 U/L (38-126); Blood Urea Nitrogen 47 mg/dl (9-20); Calcium 8.9 mg/dl (8.4-10.2); Carbon Dioxide 20 mmol/L (22-30); Chloride 105 mmol/L (98-107); Estimated Creatinine Clearance 38 ml/min; Glucose 266 mg/dl (70-99); Potassium 4.8 mmol/L (3.5-5.1); Sodium 139 mmol/L (135-145); Total Bilirubin 2.5 mg/dl (0.2-1.3); Total Protein 5.7 g/dl (6.3-8.2); eGFR 38.05
--- NOTE | 2024-01-28 09:00 | PTCARENOTE ---
Patient ambulating from bed to stretcher with RW and staff assistance. Patient very weak and HR tachy in to 140s with movement. Patient appearing winded. Assisted back to bed
[2024-01-28] MEDS: PROTONIX 40 MG PO ×2 (09:32→20:10)
[2024-01-28] MEDS: OASIS 1 SPRAY PO ×3 (09:32→22:08)
[2024-01-28] MEDS: SODIUM BICARBONATE 1300 MG PO ×3 (09:32→22:07)
[2024-01-28] MEDS: MIRALAX 17 GRAMS PO (09:32)
[2024-01-28] MEDS: NOVOLOG FLEXPEN 3 UNITS SC ×2 (09:33→13:04)
[2024-01-28] MEDS: NOVOLOG FLEXPEN-LOW RESISTANCE 2 UNITS SC (09:33)
--- NOTE | 2024-01-28 09:36 | PHA.VAN.FU ---
Vancomycin Assessment / Plan
- Assessment
Renal Function: SCR Increasing (1.6->1.7->1.8)
Neutropenia: ANC 0.1
In the past 24 hrs, patient has been: Afebrile
Concomitant Antimicrobials: cefepime
- Assessment - Therapeutic Drug Monitoring
Random Level: 14.5 ( ~ 20.5 hours after last 750 mg dose)
- Dosing Plan
Continue: dose by level
Dosing by Level: Re-dose today (750 mg x 1 dose)
- Monitoring Plan
Random Level: random level with am labs 01/28
- Follow Up
Pharmacy will continue to follow.
Vancomycin Follow UP
- -
Patient Age: 78
Patient Sex: Male
Vancomycin Day #: 6
Indication: Other
Requesting Provider: Tiffanie Costa
Pertinent Antimicrobial Allergies:
trimethoprim/sulfamethoxazole - lip swelling
tetracycline - 'penis swells up'
Height / Weight:
Height 6 ft 1 in
Actual Weight 86.239 kg
Pertinent Past Medical History: MDS/AML, CKD3
- Vital Signs / Lab Results
Temp Pulse Resp BP Pulse Ox
98.4 F 109 18 121/74 95
01/28/24 07:39 01/28/24 07:39 01/28/24 07:39 01/28/24 07:39 01/28/24 07:39
Lab Results - Hematology
01/26/24 01/27/24 01/28/24
06:42 05:25 07:47
WBC 0.6 L* 0.6 L* 0.5 L*
Lab Results - Chemistry
01/26/24 01/27/24 01/28/24
06:42 05:25 07:47
BUN 42 H 40 H 47 H
Creatinine 1.6 H 1.7 H 1.8 H
Estimated Creat Clear 43 40 38
Albumin 3.0 L 2.9 L 3.2 L
Microbiology Results
01/23/24 15:45 Blood Culture - Preliminary
Blood/Venous No Growth in 4 days- Final report to follow
01/23/24 15:34 Blood Culture - Preliminary
Blood/Venous No Growth in 4 days- Final report to follow
01/23/24 15:34 Urine Culture - Final
Urine Pseudomonas aeruginosa
Pseudomonas aeruginosa#2
Enterococcus faecalis
Streptococcus species
01/23/24 13:24 Blood Culture - Final
Blood/Venous Streptococcus bovis
Gram Stain - Final
01/24/24 11:58 Wound Culture - Final
Abdomen Staph aureus MRSA
Gram Stain - Final
Therapeutic Drug Monitoring
Random Vancomycin 14.5 ug/ml 01/28/24 07:47
--- NOTE | 2024-01-28 09:45 | W.PN.GI.CBS2 ---
Today's Communication / Plan
-
Please see assessment and plan for details.
Assessment / Plan
-
1. Elevated LFTs: In a mild necroinflammatory pattern, the setting of neutropenia secondary to chemotherapy, with underlying MDS/AML, likely multifactorial. There is likely some component of bacteremia/infection, as well as antibiotics and
possible underlying low flow given documented hypotension. Given his immunocompromise status other infections are possible including opportunistic infections as well as reactivation hepatitis B. Ultrasound was essentially unremarkable. His LFTs
continue to improve making other viral infections unlikely. At this point would continue to trend for now, await hepatitis panel.
Subjective
Subjective
Date of Service: January 28, 2024
Patient starting to feel bit better, slightly better appetite. No significant abdominal pain, vomiting. Having occasional loose stools though no bloody stools.
Objective
Data Reviewed
Laboratory Data:
Laboratory Results
01/28/24 07:47
01/28/24 07:47
Laboratory Results
PT 19.5 Sec (11.4-14.6) H 01/24/24 04:27
INR 1.67 01/24/24 04:27
APTT 47.9 Sec (23.4-35.0) H 01/24/24 04:27
Magnesium 2.0 mg/dl (1.6-2.3) 01/24/24 04:27
Total Bilirubin 2.5 mg/dl (0.2-1.3) H 01/28/24 07:47
AST 129 U/L (17-59) H 01/28/24 07:47
ALT 185 U/L (0-50) H 01/28/24 07:47
Alkaline Phosphatase 173 U/L (38-126) H 01/28/24 07:47
Vital Signs and I&O:
Vital Signs
Temp Pulse Resp BP Pulse Ox
98.4 F 109 18 121/74 95
01/28/24 07:39 01/28/24 07:39 01/28/24 07:39 01/28/24 07:39 01/28/24 07:39
I&O
01/27/24 01/28/24 01/29/24
06:59 06:59 06:59
Intake Total 957 / 957 1450 / 1450 480 / 480
Output Total 1550 / 1550 775 / 775 1700 / 1700
Balance -593 / -593 675 / 675 -1220 / -1220
Physical Exam
Physical Exam
General: NAD
Abdomen: normal bowel sounds, soft, no tenderness, no masses or bruits, no ascites, ileal conduit in place, bandage in place
[2024-01-28 11:04] VITALS: BP 124/73
[2024-01-28 12:17] LABS: Glucose - Point of Care 255 mg/dl (70-99)
[2024-01-28] MEDS: TYLENOL 650 MG PO (12:41)
[2024-01-28] MEDS: VANCOCIN 150 IV (13:00)
[2024-01-28] MEDS: NOVOLOG FLEXPEN-LOW RESISTANCE 3 UNITS SC (13:01)
--- NOTE | 2024-01-28 13:25 | W.PN.ID1 ---
Date of Service
Date of Service: January 28, 2024
Today's Communication
Continue vancomycin
Ordered TTE.
Assessment / Plan
Febrile neutropenia.
- fevers improved. Patient remains profoundly neutropenic.
Bacteremia with Streptococcus bovis
Draining lower abdominal wound
- suspected Infected mesh.
-CT shows abscess extending to skin. No indication for surgery, per Surgery.
- Cultures with MRSA
Pancytopenia (anemia/neutropenia/thrombocytopenia); transfusion dependent
CKD
Transaminitis ?due to cefepime
- LFT's improving
MDS/AML (transfusion dependent); on chemotherapy
Bladder cancer (2010); s/p radical cystectomy with urostomy placement
A-fib
HTN
DM
COPD / Interstitial lung disease
Recommendations:
Continue with vancomycin (for MRSA/Strep bovis)
Following Vanco levels closely given underlying renal insufficiency
Repeat blood culture negative x 48 hours; will continue to monitor
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
Ordered TTE for tomorrow.
Chief Complaint
-: Bacteremia and Other (Febrile neutropenia)
Subjective / Review of Systems
Feels OK.
Vital Signs / Physical Exam
Vital Signs
Vital Signs
Temp Pulse Resp BP Pulse Ox
97.5 F 117 16 124/73 92
01/28/24 11:04 01/28/24 11:04 01/28/24 11:04 01/28/24 11:04 01/28/24 11:04
Physical Exam
Constitutional: Chronically Ill
Eyes: Sclera Anicteric
Oropharyngeal: Negative Exudate or Thrush
Cardiovascular: S1/S2 and Other (tachy)
Pulmonary: Clear
Gastrointestinal: Soft, Non Tender, Non Distended and Other (dressing mild yellow strikethrough)
Genito-Urinary: Clear Urine (ileostomy); Negative CVA Tenderness
Neurological: Awake and Alert
Physical Exam:
01/24/24 CT a/p: There is low-density collection in the anterior pelvic wall measuring 1.7 x 4.0 x 3.0 cm in AP, transverse and craniocaudal dimensions respectively consistent with abscess and associated with a linear soft tissue density extending to
the anterior skin surface which, given the patient's clinical history, I suspect this fistula from the abscess to the skin surface
Objective Data
Lab Data
Lab Results
01/28/24 07:47
01/28/24 07:47
PT 19.5 Sec (11.4-14.6) H 01/24/24 04:27
INR 1.67 01/24/24 04:27
APTT 47.9 Sec (23.4-35.0) H 01/24/24 04:27
Estimated Creat Clear 38 ml/min 01/28/24 07:47
Lactic Acid 1.5 mmol/L (0.7-2.0) 01/23/24 19:43
Total Bilirubin 2.5 mg/dl (0.2-1.3) H 01/28/24 07:47
AST 129 U/L (17-59) H 01/28/24 07:47
ALT 185 U/L (0-50) H 01/28/24 07:47
Alkaline Phosphatase 173 U/L (38-126) H 01/28/24 07:47
Most recent labs reviewed.
Micro Results:
01/23/24 15:45 Blood Culture - Preliminary
Blood/Venous No Growth in 4 days- Final report to follow
01/23/24 15:34 Blood Culture - Preliminary
Blood/Venous No Growth in 4 days- Final report to follow
01/23/24 15:34 Urine Culture - Final
Urine Pseudomonas aeruginosa
Pseudomonas aeruginosa#2
Enterococcus faecalis
Streptococcus species
01/23/24 13:24 Blood Culture - Final
Blood/Venous Streptococcus bovis
Gram Stain - Final
01/24/24 11:58 Wound Culture - Final
Abdomen Staph aureus MRSA
Gram Stain - Final
01/23/24 15:34 Influenza Types A & B (ISABELLA) - Final
Nasal Swab Negative for Influenza A & B, NAAT
Negative results must be combined with clinical observations
and patient history.
Nucleic Acid Amplification test (NAAT)performed on the
[employer] platform.
Imaging:
01/23/2024 CXR (2 view): There is no parenchymal opacification or vascular congestion. The cardiomediastinal silhouettes are within the limits of normal. There is no pneumothorax, pleural effusion or mediastinal shift.
Care Review
Plan reviewed with: Physician (Dr. Chris Rich)
--- NOTE | 2024-01-28 13:57 | W.PN.HOSP.TC ---
Today's Communication/Plan
-
monitor CBC
abx per ID
resume back toprol xl
GOC discussion
Assessment / Plan
Assessment / Plan
CT a/p
1).There is low-density collection in the anterior pelvic wall measuring 1.7 x 4.0 x 3.0 cm in AP, transverse and craniocaudal dimensions respectively consistent with abscess and associated with a linear soft tissue density extending to the anterior
skin surface which, given the patient's clinical history, I suspect this fistula from the abscess to the skin surface
2).There is moderate feces in rectum suggesting fecal impaction with associated perirectal edema suggesting stercoral colitis
3).There is cystectomy, and ureteral diversion with right lower quadrant urostomy
4).There is moderate left-sided renal cortical atrophy
There is 2 mm nonobstructing calculus in the midportion of the left kidney

1. Neutropenic fever
Streptococcus bovis bacteremia
-Presented for generalized weakness. Found to be febrile in the ER
-Pancytopenic with Hbg 6.9, TWBC 0.8, ANC 0 and plt 18 at admit
-Chest x-ray clear.
-Blood culture 1 set out of 3 growing streptococcus bovis. C-scope in November showing high grade dysplastic polyp.
-Currently empirically covered with vancomycin and cefepime. ID following help appreciated.
-Oncology following, patient got dose of filgrastim/granix.
2. Purulent drainage from abdominal skin
MRSA abdominal wall abscess
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
-Patient have history of abdominal hernia repair with mesh which likely has been infected
-Patient reported to having some drainage from surgical incision site small track, which dried for last [address] abdomen pelvis without contrast report as above.
-Clinically purulent drainage, cultured and growing MRSA
-Discussed with general surgery of consult and no indication for any debridement. Can be consulted if any concern of impartial drainage/expanding localized collection.
-Patient not a candidate for surgical mass removal. May require lifelong antibiotic suppressive therapy
3. AML
MDS
Pancytopenia
-Follows with Dr. Ramses Cruz,
-Got Vidaza on 01/17 and 01/18, could not finish 5-day course
-Getting PRBC/platelets as needed. Got 3 platelets and 2u prbc so far.
4. Acute transaminitis
-LFT yesterday ALT 317 AST 462 total bilirubin 2.4 and ALP 201
-Trending down today
-CT abdomen pelvis did not show any liver parenchymal abnormalities
-Not on any hepatotoxic medication. Patient chemo med/Vidaza does not cause transaminitis
-Hepatitis panel pending
-Abd US negative.
5. IDDM
-Maintain on home regimen of long-acting insulin with Premeal
-increase dose of premeal insulin
6. Essential HTN
- continue on home dose of Toprol xl
7. Permanent Atrial fib
-HR remains elevated, asymptomatic
-resumed back on toprol xl today
-Off of Coumadin with leukemia/pancytopenia
8. Asymptomatic bacteriuria
-Patient denies of any dysuria. Urine culture growing gram-negative bacilli/Enterococcus/streptococcus
-currently on broad-spectrum anti-bacterial for above mentioned infection
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
-Cr trending down and close to baseline 1.6-1.7
10. Severe constipation
-CT abdomen pelvis showing possible fecal impaction with large amount of stool in rectum
-Patient had good bowel movement with Dulcolax suppository and oral laxative therapy
-Patient did not feel completely felt relieved, so enema provided on Monday
-Check abdominal x-ray in the morning to assess residual stool amount
History of bladder cancer s/p chemoradiation
History of prostatectomy
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
COPD
DNR/DNI
SCD
Patient overall prognosis has been poor and happy to discuss post 10 she will need of hospice care if patient blood count does not improve. Oncology also have discussed similar things with patient and patient understands prognosis. Spouse at
bedside. Question answered,
Total time spent : 53 mins
Anticipated Discharge: > 48 hours
Subjective/Interval History
-
Date of Service: January 28, 2024
Patient remains to feel weak/fatigued
Afebrile overnight
tachycardic , Denies having chest pain discomfort
Objective Data
-
Labs:
Laboratory Results
01/28/24
07:47
WBC 0.5 L*
Hgb 7.9 L
Hct 24.1 L
Plt Count 18 L*
Sodium 139
Potassium 4.8
Chloride 105
Carbon Dioxide 20 L
BUN 47 H
Creatinine 1.8 H
Glucose 266 H
Calcium 8.9
Total Bilirubin 2.5 H
AST 129 H
ALT 185 H
Alkaline Phosphatase 173 H
Vital Signs:
Vital Signs
Temp Pulse Resp BP Pulse Ox
97.5 F 117 16 124/73 92
01/28/24 11:04 01/28/24 11:04 01/28/24 11:04 01/28/24 11:04 01/28/24 11:04
I&O
01/27/24 01/28/24 01/29/24
06:59 06:59 06:59
Intake Total 957 / 957 1450 / 1450 480 / 480
Output Total 1550 / 1550 775 / 775 1700 / 1700
Balance -593 / -593 675 / 675 -1220 / -1220
Review of Systems
-
Respiratory: Reports No Symptoms
Cardiac: Denies Chest Pain or Palpitations
Abdomen/GI: Reports No Symptoms
Physical Exam
-
General: No Apparent Distress and Comfortable
HEENT: Negative Oxygen
Respiratory: Clear to Auscultation
Cardiac: S1/S2 and Tachycardic; Negative Murmur or Rub
GI: Soft, Nontender and Nondistended
Musculoskeletal: No Edema
Neuro: Awake, Alert, Oriented, No Motor Deficits and Nonfocal/Grossly Intact
Psych: Calm
[2024-01-28 15:50] VITALS: BP 112/70
[2024-01-28] MEDS: TOPROL XL 25 MG PO (16:08)
--- NOTE | 2024-01-28 16:15 | PTCARENOTE ---
Patient and expressing sadness over 'running out of options'. Emotional support provided.
[2024-01-28 16:38] LABS: Glucose - Point of Care 190 mg/dl (70-99)
[2024-01-28] MEDS: NOVOLOG FLEXPEN-LOW RESISTANCE 1 UNITS SC (18:35)
[2024-01-28] MEDS: OASIS 2 SPRAY PO (18:35)
[2024-01-28] MEDS: COLACE PO ×2 (18:35→18:41)
[2024-01-28] MEDS: NOVOLOG FLEXPEN 5 UNITS SC (18:36)
[2024-01-28 19:47] VITALS: BP 118/69
[2024-01-28 21:25] LABS: Glucose - Point of Care 201 mg/dl (70-99)
[2024-01-28] MEDS: LANTUS 0.14 UNITS SC (22:05)
[2024-01-28] MEDS: GRANIX 480 MCG SC (22:05)
[2024-01-28] MEDS: MELATONIN 5 MG PO (22:07)
[2024-01-28 23:23] VITALS: BP 113/61
[2024-01-29] VITALS (10 sets, daily range): BP systolic 94–129; BP diastolic 43–70; BMI 25.2
[2024-01-29] MEDS: MAXIPIME 2000 MG IV (03:33)
[2024-01-29] MEDS: STERILE WATER FOR INJECTION 10 ML IV (03:34)
--- NOTE | 2024-01-29 07:22 | W.PN.GI.CBS2 ---
Today's Communication / Plan
-
Please see assessment and plan for details.
Assessment / Plan
-
1. Elevated LFTs: In a mild necroinflammatory pattern, the setting of neutropenia secondary to chemotherapy, with underlying MDS/AML, likely multifactorial. There is likely some component of bacteremia/infection, as well as antibiotics and
possible underlying low flow given documented hypotension. Given his immunocompromise status other infections are possible including opportunistic infections as well as reactivation hepatitis B. Ultrasound was essentially unremarkable. His LFTs
continue to improve making other viral infections unlikely. If LFTs continue to improve today we will sign off for now, please call back with any further questions.
Subjective
Subjective
Date of Service: January 29, 2024
Patient feeling okay, still profoundly neutropenic, no fevers, few loose stools though no bleeding, less pain, tolerating diet.
Objective
Data Reviewed
Laboratory Data:
Laboratory Results
PT 19.5 Sec (11.4-14.6) H 01/24/24 04:27
INR 1.67 01/24/24 04:27
APTT 47.9 Sec (23.4-35.0) H 01/24/24 04:27
Magnesium 2.0 mg/dl (1.6-2.3) 01/24/24 04:27
Total Bilirubin 2.5 mg/dl (0.2-1.3) H 01/28/24 07:47
AST 129 U/L (17-59) H 01/28/24 07:47
ALT 185 U/L (0-50) H 01/28/24 07:47
Alkaline Phosphatase 173 U/L (38-126) H 01/28/24 07:47
Vital Signs and I&O:
Vital Signs
Temp Pulse Resp BP Pulse Ox
98.4 F 111 21 129/68 98
01/29/24 03:45 01/29/24 03:45 01/29/24 03:45 01/29/24 03:45 01/29/24 03:45
I&O
01/28/24 01/29/24 01/30/24
06:59 06:59 06:59
Intake Total 1450 / 1450 1240 / 1240
Output Total 775 / 775 3200 / 3200
Balance 675 / 675 -1960 / -1959
Physical Exam
Physical Exam
General: NAD
Abdomen: normal bowel sounds, soft, no tenderness, no masses or bruits, no ascites, ileal conduit in the right lower quadrant, bandage in place
[2024-01-29 08:15] LABS: Vancomycin Random 15.7 ug/ml
[2024-01-29 08:24] LABS: Glucose - Point of Care 272 mg/dl (70-99)
[2024-01-29 08:36] LABS: ALT (SGPT) 178 U/L (0-50); AST (SGOT) 145 U/L (17-59); Albumin 2.8 g/dl (3.5-5.0); Alkaline Phosphatase 170 U/L (38-126); Blood Urea Nitrogen 49 mg/dl (9-20); Calcium 8.8 mg/dl (8.4-10.2); Carbon Dioxide 17 mmol/L (22-30); Chloride 106 mmol/L (98-107); Estimated Creatinine Clearance 34 ml/min; Glucose 186 mg/dl (70-99); Potassium 4.2 mmol/L (3.5-5.1); Sodium 138 mmol/L (135-145); Total Bilirubin 2.5 mg/dl (0.2-1.3); Total Protein 5.3 g/dl (6.3-8.2); eGFR 33.53
[2024-01-29] MEDS: NOVOLOG FLEXPEN 5 UNITS SC (08:45)
[2024-01-29] MEDS: NOVOLOG FLEXPEN-LOW RESISTANCE 3 UNITS SC (08:45)
[2024-01-29] MEDS: SODIUM BICARBONATE 1300 MG PO (08:46)
[2024-01-29] MEDS: PROTONIX 40 MG PO ×2 (08:46→20:36)
[2024-01-29] MEDS: OASIS 2 SPRAY PO ×3 (08:46→18:03)
[2024-01-29] MEDS: TOPROL XL 25 MG PO (08:46)
[2024-01-29] MEDS: MIRALAX 17 GRAMS PO (08:48)
--- NOTE | 2024-01-29 09:21 | W.PN.ONC2 ---
Today's Communication / Plan
-
follow cbc
gcsf
abx per ID
I reviewed palliative best supportive care vs comfort care with pt and today in setting of poor prognosis. if would like to pursue comfort care with poor prognosis then hospice appropriate
Impression
Impression
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
No evidence acute DIC
Recent GIB, monitor for bleeding
neutropenic fever
anterior pelvic wall abscess 1.7 x 4.0 x 3.0 cm
streptococcus bovis bacteremia
fecal impaction
Plan
Plan
Neutropenic precautions. Consider long acting GCSF rather than short acting in setting of severe neutropenia and febrile illness. Will await feed back from pharmacy. Benefit of GCSF outweighs risk.
ID following. streptococcus bacteremia and pelvic wall abscess
Transfuse packed RBC for hemoglobin less than 8 or as needed for symptomatic anemia
Transfuse SDP if platelets <20 in setting of neutropenic fever, <50 prn bleeding
Hold anticoagulation the setting of severe thrombocytopenia
follow-up with Dr. Cruz for continued EPO and hypomethylating agent support upon discharge
if would like to pursue comfort care with poor prognosis then hospice appropriate
>50% of visit was spent on education, counseling, and coordination of care
Subjective/Objective
Chief Complaint
no new complaints
Subjective
afebrile, no hypoxia or hypotension
Vital Signs:
Vital Signs
Temp Pulse Resp BP Pulse Ox
98 F 102 19 118/63 100
01/29/24 07:42 01/29/24 07:42 01/29/24 07:42 01/29/24 07:42 01/29/24 07:42
Lab Results:
Laboratory Data
WBC 0.5 10^3/uL (4.8-10.8) L* 01/28/24 07:47
Hgb 7.9 g/dL (13.0-18.0) L 01/28/24 07:47
Plt Count 18 10^3/uL (130-400) L* 01/28/24 07:47
PT 19.5 Sec (11.4-14.6) H 01/24/24 04:27
INR 1.67 01/24/24 04:27
APTT 47.9 Sec (23.4-35.0) H 01/24/24 04:27
eGFR 33.53 01/29/24 06:59
Physical Exam
HEENT: Moist Mucous Membranes; No Jaundice
Cardiology: S1 and S2
Pulmonary: Clear
GI: Soft and Other (abdominal wound with dressing c/d/i)
Review of Systems
Review of Systems
Review of systems notable for subjective, otherwise negative
--- NOTE | 2024-01-29 09:22 | W.PN.HOSP.TC ---
Today's Communication/Plan
-
Antibiotic would no longer help as per ID, antibiotics discontinued
Hospice discussed with patient, who is thinking about it
Poor prognosis
1 unit of platelets today
Neutropenic precautions
Assessment / Plan
Assessment / Plan
Physical Exam
General: Not in acute distress
HEENT: Normocephalic
Respiratory: Clear to Auscultation Bilaterally
Cardiac: S1/S2 and Tachycardic
GI: Soft, Nontender and Nondistended. Positive bowel sounds.
Musculoskeletal: No Edema
Neuro: Awake, Alert, Oriented, No Motor Deficits and Nonfocal/Grossly Intact
Psych: Calm
CT a/p
1).There is low-density collection in the anterior pelvic wall measuring 1.7 x 4.0 x 3.0 cm in AP, transverse and craniocaudal dimensions respectively consistent with abscess and associated with a linear soft tissue density extending to the anterior
skin surface which, given the patient's clinical history, I suspect this fistula from the abscess to the skin surface
2).There is moderate feces in rectum suggesting fecal impaction with associated perirectal edema suggesting stercoral colitis
3).There is cystectomy, and ureteral diversion with right lower quadrant urostomy
4).There is moderate left-sided renal cortical atrophy
There is 2 mm nonobstructing calculus in the midportion of the left kidney

Assessment/Plan
1. Neutropenic fever
Streptococcus bovis bacteremia - had recent colonoscopy with removal of high-grade dysplastic polyp. No indication for repeat c-scop.
-Presented for generalized weakness. Found to be febrile in the ER
-Pancytopenic with Hbg 6.9, TWBC 0.8, ANC 0 and plt 18 at admit
-Chest x-ray clear.
-Blood culture growing streptococcus bovis. C-scope in November showing high grade dysplastic polyp.
-Currently empirically covered with vancomycin and cefepime. ID following help appreciated.
-Oncology following, patient got dose of filgrastim/granix.
-Neutropenic precautions
2. Purulent drainage from abdominal skin
MRSA abdominal wall abscess
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
-Patient have history of abdominal hernia repair with mesh which likely has been infected
-Patient reported to having some drainage from surgical incision site small track, which dried for last [address] abdomen pelvis without contrast report as above.
-Clinically purulent drainage, cultured and growing MRSA
-Discussed with general surgery of consult and no indication for any debridement. Can be consulted if any concern of impartial drainage/expanding localized collection.
-Patient not a candidate for surgical mass removal.
-Appreciate ID: ID physician spoke extensively with the patient and his and mentioned that given all of patient's underlying conditions, there is no real benefit to further antibiotic therapy; MRSA noted from the abdominal wound, unfortunately,
given patient's underlying allergies (tetracycline, Bactrim), there are no oral options.
3. AML
MDS
Pancytopenia
-Follows with Dr. Ramses Cruz,
-Got Vidaza on 01/17 and 01/18, could not finish 5-day course
-Getting PRBC/platelets as needed. Got 3 platelets and 2u prbc so far.
-Ordered 1 unit platelets on 01/29/24
4. Acute transaminitis
-CT abdomen pelvis did not show any liver parenchymal abnormalities
-Not on any hepatotoxic medication. Patient chemo med/Vidaza does not cause transaminitis
-Hepatitis panel
-Abd US negative.
-Appreciate gastroenterology evaluation
5. IDDM
-Maintain on home regimen of long-acting insulin with Premeal
-Dose of premeal insulin was previously increased
6. Essential HTN
- continue on home dose of Toprol xl
7. Permanent Atrial fib
-HR remains elevated, asymptomatic
-resumed back on toprol xl today
-Off of Coumadin with leukemia/pancytopenia
8. Asymptomatic bacteriuria
-Patient denies of any dysuria. Urine culture growing gram-negative bacilli/Enterococcus/streptococcus
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
-Cr increased again to 2.0
10. Severe constipation
-CT abdomen pelvis showing possible fecal impaction with large amount of stool in rectum
-Patient had good bowel movement with Dulcolax suppository and oral laxative therapy
-Patient did not feel completely felt relieved, so enema provided on Monday
-Check abdominal x-ray in the morning to assess residual stool amount
History of bladder cancer s/p chemoradiation
History of prostatectomy
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
COPD
DNR/DNI
SCD
Patient overall prognosis has been poor and hospice/comfort has been discussed by multiple physicians to the patient.
Total time spent : 55 mins
Anticipated Discharge: > 48 hours
Subjective/Interval History
-
Date of Service: January 29, 2024
Patient was seen and examined. He reported no new symptoms or complaints.
Objective Data
-
Labs:
Laboratory Results
01/29/24
06:59
WBC Pending
Hgb Pending
Hct Pending
Plt Count Pending
Sodium 138
Potassium 4.2
Chloride 106
Carbon Dioxide 17 L
BUN 49 H
Creatinine 2.0 H
Glucose 186 H
Calcium 8.8
Total Bilirubin 2.5 H
AST 145 H
ALT 178 H
Alkaline Phosphatase 170 H
Vital Signs:
Vital Signs
Temp Pulse Resp BP Pulse Ox
98 F 102 19 118/63 100
01/29/24 07:42 01/29/24 07:42 01/29/24 07:42 01/29/24 07:42 01/29/24 07:42
I&O
01/28/24 01/29/24 01/30/24
06:59 06:59 06:59
Intake Total 1450 / 1450 1240 / 1240
Output Total 775 / 775 3200 / 3200
Balance 675 / 675 -1959 / -1959
--- NOTE | 2024-01-29 09:26 | PHA.VAN.FU ---
Vancomycin Assessment / Plan
- Assessment
Renal Function: SCR Increasing
Neutropenia: ANC = 100 (01/27)
In the past 24 hrs, patient has been: Afebrile
Concomitant Antimicrobials: cefepime
- Assessment - Therapeutic Drug Monitoring
Random Level: 15.7 - drawn ~18H after previous dose of 750mg
- Dosing Plan
Dosing by Level: Re-dose today (Vanc 750mg)
- Monitoring Plan
Random Level: 01/29 0600
- Follow Up
Pharmacy will continue to follow.
Vancomycin Follow UP
- -
Patient Age: 78
Patient Sex: Male
Vancomycin Day #: 7
Indication: Other
Requesting Provider: Tiffanie Costa
Pertinent Antimicrobial Allergies:
trimethoprim/sulfamethoxazole - lip swelling
tetracycline - 'penis swells up'
Height / Weight:
Height 6 ft 1 in
Actual Weight 86.664 kg
Pertinent Past Medical History: MDS/AML, CKD3
- Vital Signs / Lab Results
Temp Pulse Resp BP Pulse Ox
98 F 102 19 118/63 100
01/29/24 07:42 01/29/24 07:42 01/29/24 07:42 01/29/24 07:42 01/29/24 07:42
Lab Results - Hematology
01/27/24 01/28/24
05:25 07:47
WBC 0.6 L* 0.5 L*
Lab Results - Chemistry
01/27/24 01/28/24 01/29/24
05:25 07:47 06:59
BUN 40 H 47 H 49 H
Creatinine 1.7 H 1.8 H 2.0 H
Estimated Creat Clear 40 38 34
Albumin 2.9 L 3.2 L 2.8 L
Microbiology Results
01/23/24 15:45 Blood Culture - Final
Blood/Venous No Growth - Final Report
01/23/24 15:34 Blood Culture - Final
Blood/Venous No Growth - Final Report
01/23/24 15:34 Urine Culture - Final
Urine Pseudomonas aeruginosa
Pseudomonas aeruginosa#2
Enterococcus faecalis
Streptococcus species
Therapeutic Drug Monitoring
Random Vancomycin 15.7 ug/ml 01/29/24 06:59
[2024-01-29 10:04] LABS: % Basophils 1.6 % (0-2); % Eosinophils 1.6 % (0-6); % Lymphocytes 65.6 % (20.5-51.1); % Monocytes 13.1 % (1.7-9.3); % Neutrophils 18.1 % (42.2-75.2); Absolute Lymphocytes 0.4 10^3/uL (1.2-3.4); Absolute Monocytes 0.1 10^3/uL (0.1-0.6); Absolute Neutrophils 0.1 10^3/uL (1.4-6.5); Hematocrit 21.3 % (39.0-52.0); Hemoglobin 7.2 g/dL (13.0-18.0); Mean Corp Hgb Conc. 33.8 g/dL (33.0-37.0); Mean Corpuscular Hgb 29.4 pg (27.0-31.0); Mean Corpuscular Volume 86.9 fL (80.0-94.0); Nucleated Red Blood Cells % 3.3 % (-); Platelet Count 13 10^3/uL (130-400); Red Blood Cell Count 2.45 10^6/uL (4.70-6.10); Red Cell Dist. Width 16.7 % (11.5-14.5); White Blood Cell Count 0.6 10^3/uL (4.8-10.8)
[2024-01-29] MEDS: VANCOCIN 150 IV (11:39)
[2024-01-29 11:46] LABS: Glucose - Point of Care 305 mg/dl (70-99)
[2024-01-29] MEDS: NOVOLOG FLEXPEN SC ×2 (11:48→17:42)
[2024-01-29] MEDS: NOVOLOG FLEXPEN-LOW RESISTANCE 4 UNITS SC (11:49)
--- NOTE | 2024-01-29 13:53 | W.PN.ID1 ---
Date of Service
Date of Service: January 29, 2024
Today's Communication
Discontinue further antibiotics.
Assessment / Plan
Febrile neutropenia.
- fevers improved. Patient remains profoundly neutropenic.
- No response to GCSF thus far.
Bacteremia with Streptococcus bovis
Draining lower abdominal wound
- suspected Infected mesh.
-CT shows abscess extending to skin. No indication for surgery, per Surgery.
- Cultures with MRSA
Pancytopenia (anemia/neutropenia/thrombocytopenia); transfusion dependent
CKD
Transaminitis ?due to cefepime
- LFT's improving
MDS/AML (transfusion dependent); on chemotherapy
Bladder cancer (2010); s/p radical cystectomy with urostomy placement
A-fib
HTN
DM
COPD / Interstitial lung disease
Recommendations:
Chart reviewed, and Hematology/oncology notes that patient is hospice appropriate.
I spoke extensively with the patient and his . Given all underlying conditions, there is no real benefit to further antibiotic therapy.
MRSA noted from the abdominal wound, unfortunately, given patient's underlying allergies (tetracycline, Bactrim), there are no oral options. The wound does drain, which is good.
Would discontinue further antibiotic therapy at this point with a focus on comfort.
Consult hospice.
����������������������������������������������������������
Chief Complaint
-: Bacteremia and Other (Febrile neutropenia)
Subjective / Review of Systems
Patient seen and examined. Overall feels very fatigued and weak.
Review of Systems: No Fever
Vital Signs / Physical Exam
Vital Signs
Vital Signs
Temp Pulse Resp BP Pulse Ox
98 F 100 21 113/58 99
01/29/24 11:26 01/29/24 11:26 01/29/24 11:26 01/29/24 11:26 01/29/24 11:26
Physical Exam
Constitutional: Chronically Ill
Eyes: Sclera Anicteric
Oropharyngeal: Negative Exudate or Thrush
Cardiovascular: S1/S2 and Other (tachy)
Pulmonary: Clear
Gastrointestinal: Soft, Non Tender, Non Distended and Other (dressing mild yellow strikethrough)
Genito-Urinary: Clear Urine (ileostomy); Negative CVA Tenderness
Neurological: Awake and Alert
Physical Exam:
01/24/24 CT a/p: There is low-density collection in the anterior pelvic wall measuring 1.7 x 4.0 x 3.0 cm in AP, transverse and craniocaudal dimensions respectively consistent with abscess and associated with a linear soft tissue density extending to
the anterior skin surface which, given the patient's clinical history, I suspect this fistula from the abscess to the skin surface
Objective Data
Lab Data
Lab Results
01/29/24 06:59
01/29/24 06:59
PT 19.5 Sec (11.4-14.6) H 01/24/24 04:27
INR 1.67 01/24/24 04:27
APTT 47.9 Sec (23.4-35.0) H 01/24/24 04:27
Estimated Creat Clear 34 ml/min 01/29/24 06:59
Lactic Acid 1.5 mmol/L (0.7-2.0) 01/23/24 19:43
Total Bilirubin 2.5 mg/dl (0.2-1.3) H 01/29/24 06:59
AST 145 U/L (17-59) H 01/29/24 06:59
ALT 178 U/L (0-50) H 01/29/24 06:59
Alkaline Phosphatase 170 U/L (38-126) H 01/29/24 06:59
Most recent labs reviewed.
Micro Results:
01/23/24 15:45 Blood Culture - Final
Blood/Venous No Growth - Final Report
01/23/24 15:34 Blood Culture - Final
Blood/Venous No Growth - Final Report
01/23/24 15:34 Urine Culture - Final
Urine Pseudomonas aeruginosa
Pseudomonas aeruginosa#2
Enterococcus faecalis
Streptococcus species
01/23/24 13:24 Blood Culture - Final
Blood/Venous Streptococcus bovis
Gram Stain - Final
01/24/24 11:58 Wound Culture - Final
Abdomen Staph aureus MRSA
Gram Stain - Final
01/23/24 15:34 Influenza Types A & B (ISABELLA) - Final
Nasal Swab Negative for Influenza A & B, NAAT
Negative results must be combined with clinical observations
and patient history.
Nucleic Acid Amplification test (NAAT)performed on the
[employer] platform.
Imaging:
01/24/24 CT a/p: There is low-density collection in the anterior pelvic wall measuring 1.7 x 4.0 x 3.0 cm in AP, transverse and craniocaudal dimensions respectively consistent with abscess and associated with a linear soft tissue density extending to
the anterior skin surface which, given the patient's clinical history, I suspect this fistula from the abscess to the skin surface
01/23/2024 CXR (2 view): There is no parenchymal opacification or vascular congestion. The cardiomediastinal silhouettes are within the limits of normal. There is no pneumothorax, pleural effusion or mediastinal shift.
Care Review
Plan reviewed with: Physician (Hospitalist) and Other (Case management)
--- NOTE | 2024-01-29 14:04 | VATNOTE ---
Left arm swelling improving per patient, still firm to touch.
--- NOTE | 2024-01-29 16:32 | CM ---
Met with patient & .
Case management consult completed for hospice.
Reviewed options of hospice and would like hospice.
tt to Onelia Tucker - [facility]
PLAN: hospice consult with hospice
[2024-01-29 16:35] LABS: Glucose - Point of Care 233 mg/dl (70-99)
[2024-01-29] MEDS: COLACE 100 MG PO (18:03)
[2024-01-29] MEDS: NOVOLOG FLEXPEN-LOW RESISTANCE 2 UNITS SC (18:04)
--- NOTE | 2024-01-29 18:25 | PTCARENOTE ---
During incontinence care, 4 fluid filled blisters noted to patient's R groin. Patient denies pain, burn or itch to site. A small 1cm x 0.5 cm SDTI noted to patient sacrum. Protective foam had been in place and maintained. New foam placed at sacrum
for protection. Patient and spouse educated regarding pressure injures and the need for frequent position changes--patient and spouse agreeable. Turning schedule will be maintained q2hr.
[2024-01-29 21:23] LABS: Hepatitis B Surface Antigen Negative (Negative)
[2024-01-29 21:40] LABS: Hepatitis B Surface Antibody Negative; Hepatitis C Antibody Negative (Negative)
[2024-01-29 21:41] LABS: Hepatitis A Antibody, Total Negative (Negative)
[2024-01-29 22:12] LABS: Glucose - Point of Care 246 mg/dl (70-99)
[2024-01-29] MEDS: OASIS 1 SPRAY PO (23:12)
[2024-01-29] MEDS: GRANIX 480 MCG SC (23:12)
[2024-01-29] MEDS: LANTUS 0.14 UNITS SC (23:12)
[2024-01-29] MEDS: MELATONIN 5 MG PO (23:13)
[2024-01-30 03:36] VITALS: BP 126/63
[2024-01-30 05:48] VITALS: BMI 25.2
[2024-01-30 07:25] LABS: Glucose - Point of Care 246 mg/dl (70-99)
[2024-01-30 08:03] VITALS: BP 102/71
[2024-01-30] MEDS: TOPROL XL 25 MG PO (08:13)
[2024-01-30] MEDS: PROTONIX 40 MG PO ×2 (08:14→19:53)
[2024-01-30] MEDS: MIRALAX 17 GRAMS PO (08:14)
[2024-01-30] MEDS: NOVOLOG FLEXPEN-LOW RESISTANCE 2 UNITS SC (08:14)
[2024-01-30] MEDS: NOVOLOG FLEXPEN 5 UNITS SC ×2 (08:15→12:06)
[2024-01-30] MEDS: OASIS 1 SPRAY PO ×3 (08:16→21:41)
[2024-01-30 09:09] LABS: % Eosinophils 1.8 % (0-6); % Immature Granulocytes 5.3 % (0-0.5); % Lymphocytes 68.4 % (20.5-51.1); % Neutrophils 17.5 % (42.2-75.2); Absolute Lymphocytes 0.4 10^3/uL (1.2-3.4); Absolute Neutrophils 0.1 10^3/uL (1.4-6.5); Hematocrit 21.9 % (39.0-52.0); Hemoglobin 7.4 g/dL (13.0-18.0); Mean Corp Hgb Conc. 33.8 g/dL (33.0-37.0); Mean Corpuscular Hgb 30.2 pg (27.0-31.0); Mean Corpuscular Volume 89.4 fL (80.0-94.0); Nucleated Red Blood Cells % 3.5 % (-); Platelet Count 17 10^3/uL (130-400); Red Blood Cell Count 2.45 10^6/uL (4.70-6.10); Red Cell Dist. Width 16.6 % (11.5-14.5); White Blood Cell Count 0.6 10^3/uL (4.8-10.8)
[2024-01-30 09:13] LABS: ALT (SGPT) 139 U/L (0-50); AST (SGOT) 88 U/L (17-59); Albumin 2.8 g/dl (3.5-5.0); Alkaline Phosphatase 159 U/L (38-126); Blood Urea Nitrogen 52 mg/dl (9-20); Calcium 8.7 mg/dl (8.4-10.2); Carbon Dioxide 18 mmol/L (22-30); Chloride 105 mmol/L (98-107); Estimated Creatinine Clearance 34 ml/min; Glucose 234 mg/dl (70-99); Potassium 4.2 mmol/L (3.5-5.1); Sodium 138 mmol/L (135-145); Total Bilirubin 2.2 mg/dl (0.2-1.3); Total Protein 5.3 g/dl (6.3-8.2); eGFR 33.53
--- NOTE | 2024-01-30 10:19 | HOSPNOTE ---
Addendum entered by Cathy Tucker RN 01/30/24 12:00:
Met with patient and spouse and explained hospice and the philosophy. Patient is AAO and his wish is to go home with hospice services. The spouse will be primary caregiver. Equipment was ordered and will be delivered tomorrow, transport is scheduled
for 1pm. Case management and Attending aware of plan. I spoke with floor RN and she is aware of plan. Spouse has my number with any further questions.
Original Note:
Called spouse and left a message on both phone numbers listed. Will continue to try to reach spouse. More information to follow.
--- NOTE | 2024-01-30 10:30 | W.PN.ONC ---
Today's Communication / Plan
-
d/c to home hospice
Impression
Impression
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
No evidence acute DIC
Recent GIB, monitor for bleeding
neutropenic fever
anterior pelvic wall abscess 1.7 x 4.0 x 3.0 cm
streptococcus bovis bacteremia
fecal impaction
Plan
Plan
Met w/ patient and , after discussions and much consideration, they've decided to pursue home hospice, would like to go home as soon as possible.
Subjective/Objective
Subjective/Objective
wants to go home on hospice
Vital Signs:
Vital Signs
Temp Pulse Resp BP Pulse Ox
98.5 F 102 19 102/71 100
01/30/24 08:03 01/30/24 08:13 01/30/24 08:03 01/30/24 08:13 01/30/24 08:03
Lab Results:
Laboratory Data
WBC 0.6 10^3/uL (4.8-10.8) L* 01/30/24 07:08
Hgb 7.4 g/dL (13.0-18.0) L 01/30/24 07:08
Plt Count 17 10^3/uL (130-400) L* D 01/30/24 07:08
PT 19.5 Sec (11.4-14.6) H 01/24/24 04:27
INR 1.67 01/24/24 04:27
APTT 47.9 Sec (23.4-35.0) H 01/24/24 04:27
eGFR 33.53 01/30/24 07:08
--- NOTE | 2024-01-30 10:52 | VATNOTE ---
Left arm swelling decreasing ,some firmness noted. Pt denies discomfort.
[2024-01-30 11:00] VITALS: BP 125/64
[2024-01-30 11:56] LABS: Glucose - Point of Care 324 mg/dl (70-99)
[2024-01-30] MEDS: NOVOLOG FLEXPEN-LOW RESISTANCE 4 UNITS SC (12:07)
--- NOTE | 2024-01-30 14:11 | W.PN.ID1 ---
Date of Service
Date of Service: January 30, 2024
Today's Communication
Sign off
Assessment / Plan
Febrile neutropenia.
- fevers improved. Patient remains profoundly neutropenic.
- No response to GCSF thus far.
Bacteremia with Streptococcus bovis
Draining lower abdominal wound
- suspected Infected mesh.
-CT shows abscess extending to skin. No indication for surgery, per Surgery.
- Cultures with MRSA
Pancytopenia (anemia/neutropenia/thrombocytopenia); transfusion dependent
CKD
Transaminitis ?due to cefepime
- LFT's improving
MDS/AML (transfusion dependent); on chemotherapy
Bladder cancer (2010); s/p radical cystectomy with urostomy placement
A-fib
HTN
DM
COPD / Interstitial lung disease
Recommendations:
Antibiotics previously discontinued.
Patient for home hospice as soon as hospital bed can be delivered.
Little more to offer from a Infectious Diseases service.
Will see again at your request.
����������������������������������������������������������
Chief Complaint
-: Bacteremia and Other (Febrile neutropenia)
Subjective / Review of Systems
Review of Systems: No Fever
Vital Signs / Physical Exam
Vital Signs
Vital Signs
Temp Pulse Resp BP Pulse Ox
97.5 F 98 16 125/64 93
01/30/24 11:00 01/30/24 11:00 01/30/24 11:00 01/30/24 11:00 01/30/24 11:00
Physical Exam
Constitutional: Comfortable and Chronically Ill
Pulmonary: Non Labored
Gastrointestinal: Non Distended
Neurological: Other (Resting comfortably.)
Objective Data
Lab Data
Lab Results
01/30/24 07:08
01/30/24 07:08
PT 19.5 Sec (11.4-14.6) H 01/24/24 04:27
INR 1.67 01/24/24 04:27
APTT 47.9 Sec (23.4-35.0) H 01/24/24 04:27
Estimated Creat Clear 34 ml/min 01/30/24 07:08
Lactic Acid 1.5 mmol/L (0.7-2.0) 01/23/24 19:43
Total Bilirubin 2.2 mg/dl (0.2-1.3) H 01/30/24 07:08
AST 88 U/L (17-59) H 01/30/24 07:08
ALT 139 U/L (0-50) H 01/30/24 07:08
Alkaline Phosphatase 159 U/L (38-126) H 01/30/24 07:08
Most recent labs reviewed.
Micro Results:
01/23/24 15:45 Blood Culture - Final
Blood/Venous No Growth - Final Report
01/23/24 15:34 Blood Culture - Final
Blood/Venous No Growth - Final Report
01/23/24 15:34 Urine Culture - Final
Urine Pseudomonas aeruginosa
Pseudomonas aeruginosa#2
Enterococcus faecalis
Streptococcus species
01/23/24 13:24 Blood Culture - Final
Blood/Venous Streptococcus bovis
Gram Stain - Final
01/24/24 11:58 Wound Culture - Final
Abdomen Staph aureus MRSA
Gram Stain - Final
01/23/24 15:34 Influenza Types A & B (ISABELLA) - Final
Nasal Swab Negative for Influenza A & B, NAAT
Negative results must be combined with clinical observations
and patient history.
Nucleic Acid Amplification test (NAAT)performed on the
[employer] platform.
Imaging:
01/24/24 CT a/p: There is low-density collection in the anterior pelvic wall measuring 1.7 x 4.0 x 3.0 cm in AP, transverse and craniocaudal dimensions respectively consistent with abscess and associated with a linear soft tissue density extending to
the anterior skin surface which, given the patient's clinical history, I suspect this fistula from the abscess to the skin surface
01/23/2024 CXR (2 view): There is no parenchymal opacification or vascular congestion. The cardiomediastinal silhouettes are within the limits of normal. There is no pneumothorax, pleural effusion or mediastinal shift.
Care Review
Plan reviewed with: Physician (Hospitalist)
[2024-01-30 15:00] VITALS: BP 102/63
--- NOTE | 2024-01-30 15:13 | PN.CDI ---
CDI
- -
CDI:
Physician Documentation Request
Admit Date: 01/23/24 15:52
Dear Doctor Darron,
Please review the following and provide your response in the progress notes.
Clinical Indicators:
The diagnosis of Sepsis was documented on 01/23/24, but is not consistently noted in subsequent documentation.
Pt admitted with Neutropenic fever, gram-positive bacteremia.
01/22 H&P: '#Sepsis with history of severe pancytopenia on current chemotherapy..WBC 0.5 absolute neutrophil 0.1..Temp 103.2 F, , lactic acid 2.8.'
01/29 ID: 'Draining lower abdominal wound- suspected Infected mesh. -CT shows abscess extending to skin. No indication for surgery, per Surgery.
- Cultures with MRSA'
Selected Entries
01/23/24
13:55
Temp 103.2 F H
Pulse 127
Resp Rate 24
01/23/24
14:30 01/23/24
15:00
Temp
Pulse 133 126
Resp Rate 27 26
Please clarify the following:
- Sepsis was present on admission and is still being monitored, evaluated or treated
- Sepsi was ruled out
- Sepsis is still a likely, suspected, probable diagnosis
- Other
Use of terms such as suspected, likely, concern for, or probable (associated with a specific diagnosis that is being evaluated, monitored, or treated as if it exists) are acceptable and can be coded in the inpatient setting, when documented at the
time of discharge.
Thank you,
Carmen Yip RN, BSN
CDI Specialist
Available via [employer]
Please use your independent medical judgment in providing your response.
--- NOTE | 2024-01-30 15:30 | CM ---
CM reviewed pt with Dr Tolliver- pt and spouse requesting hospice
Sposue confirms plan for Hospice at home
Referral made via [facility]
Plan for dc tomorrow home with hospice
IMM verbally completed with spouse- copy provided
Handy Worker arranged for transport at 1300 pickup
Forms on chart
DNR form on chart and TT/Dr Tolliver requesting signature
Discharge Disposition- home tomorrow with Hospice, BLS 1300 pickup
--- NOTE | 2024-01-30 16:00 | W.PN.HOSP.TC ---
Today's Communication/Plan
-
Patient and his have decided for patient to go to home with home hospice
Per case management, patient can be discharged tomorrow at the earliest
Assessment / Plan
Assessment / Plan
Physical Exam
General: Not in acute distress
HEENT: Normocephalic
Respiratory: Clear to Auscultation Bilaterally
Cardiac: S1/S2 and Tachycardic
GI: Soft, Nontender and Nondistended. Positive bowel sounds.
Musculoskeletal: No Edema
Neuro: Awake, Alert, Oriented, No Motor Deficits and Nonfocal/Grossly Intact
Psych: Calm
CT a/p
1).There is low-density collection in the anterior pelvic wall measuring 1.7 x 4.0 x 3.0 cm in AP, transverse and craniocaudal dimensions respectively consistent with abscess and associated with a linear soft tissue density extending to the anterior
skin surface which, given the patient's clinical history, I suspect this fistula from the abscess to the skin surface
2).There is moderate feces in rectum suggesting fecal impaction with associated perirectal edema suggesting stercoral colitis
3).There is cystectomy, and ureteral diversion with right lower quadrant urostomy
4).There is moderate left-sided renal cortical atrophy
There is 2 mm nonobstructing calculus in the midportion of the left kidney

Assessment/Plan
1. Neutropenic fever
Sepsis was present on admission and is still being monitored, evaluated or treated
Streptococcus bovis bacteremia - had recent colonoscopy with removal of high-grade dysplastic polyp. No indication for repeat c-scop.
-Presented for generalized weakness. Found to be febrile in the ER
-Pancytopenic with Hbg 6.9, TWBC 0.8, ANC 0 and plt 18 at admit
-Blood culture growing streptococcus bovis. C-scope in November showing high grade dysplastic polyp.
-ID following help appreciated: no more antibiotics as they would not benefit patient in their opinion
-Oncology following, patient got dose of filgrastim/granix.
-Neutropenic precautions
2. Purulent drainage from abdominal skin
MRSA abdominal wall abscess
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
-Patient have history of abdominal hernia repair with mesh which likely has been infected
-Patient reported to having some drainage from surgical incision site small track, which dried for last [address] abdomen pelvis without contrast report as above.
-Clinically purulent drainage, cultured and growing MRSA
-Discussed with general surgery of consult and no indication for any debridement. Can be consulted if any concern of impartial drainage/expanding localized collection.
-Patient not a candidate for surgical mass removal.
-Appreciate ID: ID physician spoke extensively with the patient and his and mentioned that given all of patient's underlying conditions, there is no real benefit to further antibiotic therapy; MRSA noted from the abdominal wound, unfortunately,
given patient's underlying allergies (tetracycline, Bactrim), there are no oral options.
3. AML
MDS
Pancytopenia
-Follows with Dr. Ramses Cruz,
-Got Vidaza on 01/17 and 01/18, could not finish 5-day course
-Getting PRBC/platelets as needed. Got 3 platelets and 2u prbc so far.
-Ordered 1 unit platelets on 01/29/24
4. Acute transaminitis
-CT abdomen pelvis did not show any liver parenchymal abnormalities
-Not on any hepatotoxic medication. Patient chemo med/Vidaza does not cause transaminitis
-Hepatitis panel
-Abd US negative.
-Appreciate gastroenterology evaluation
5. IDDM
-Maintain on home regimen of long-acting insulin with Premeal
-Dose of premeal insulin was previously increased
6. Essential HTN
- continue on home dose of Toprol xl
7. Permanent Atrial fib
-HR remains elevated, asymptomatic
-resumed back on toprol xl
-Off of Coumadin with leukemia/pancytopenia
8. Asymptomatic bacteriuria
-Patient denies of any dysuria. Urine culture growing gram-negative bacilli/Enterococcus/streptococcus
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
-Cr increased again to 2.0
10. Severe constipation
-CT abdomen pelvis showing possible fecal impaction with large amount of stool in rectum
-Patient had good bowel movement with Dulcolax suppository and oral laxative therapy
-Patient did not feel completely felt relieved, so enema provided on Monday
-Check abdominal x-ray in the morning to assess residual stool amount
History of bladder cancer s/p chemoradiation
History of prostatectomy
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
COPD
DNR/DNI
SCD
Anticipated Discharge: Within 24 hours
Subjective/Interval History
-
Date of Service: January 30, 2024
Patient was seen and examined. He reported no new symptoms.
Objective Data
-
Labs:
Laboratory Results
01/30/24
07:08
WBC 0.6 L*
Hgb 7.4 L
Hct 21.9 L
Plt Count 17 L* D
Sodium 138
Potassium 4.2
Chloride 105
Carbon Dioxide 18 L
BUN 52 H
Creatinine 2.0 H
Glucose 234 H
Calcium 8.7
Total Bilirubin 2.2 H
AST 88 H
ALT 139 H
Alkaline Phosphatase 159 H
Vital Signs:
Vital Signs
Temp Pulse Resp BP Pulse Ox
98.5 F 109 32 102/63 98
01/30/24 15:00 01/30/24 15:00 01/30/24 15:00 01/30/24 15:00 01/30/24 15:00
I&O
01/29/24 01/30/24 01/31/24
06:59 06:59 06:59
Intake Total 1240 / 1240 1241 / 1241
Output Total 3200 / 3200 1400 / 1400
Balance -1960 / -1960 -159 / -159
[2024-01-30 16:20] LABS: Glucose - Point of Care 214 mg/dl (70-99)
[2024-01-30] MEDS: NOVOLOG FLEXPEN SC (17:21)
[2024-01-30] MEDS: NOVOLOG FLEXPEN-LOW RESISTANCE SC (17:21)
[2024-01-30] MEDS: COLACE PO (17:21)
[2024-01-30] MEDS: OASIS PO (17:21)
[2024-01-30 21:29] LABS: Glucose - Point of Care 276 mg/dl (70-99)
[2024-01-30] MEDS: LANTUS 0.14 UNITS SC (21:40)
[2024-01-30] MEDS: MELATONIN 5 MG PO (21:40)
[2024-01-30] MEDS: GRANIX 480 MCG SC (21:40)
[2024-01-30] MEDS: TYLENOL 650 MG PO (21:54)
[2024-01-30 23:20] VITALS: BP 115/59
[2024-01-31 06:00] VITALS: BMI 25.0
[2024-01-31 07:34] LABS: Hematocrit 23.1 % (39.0-52.0); Hemoglobin 7.5 g/dL (13.0-18.0); Mean Corp Hgb Conc. 32.5 g/dL (33.0-37.0); Mean Corpuscular Hgb 29.2 pg (27.0-31.0); Mean Corpuscular Volume 89.9 fL (80.0-94.0); Platelet Count 16 10^3/uL (130-400); Red Blood Cell Count 2.57 10^6/uL (4.70-6.10); Red Cell Dist. Width 16.8 % (11.5-14.5); White Blood Cell Count 0.6 10^3/uL (4.8-10.8)
[2024-01-31 07:40] VITALS: BP 116/78
[2024-01-31 07:53] LABS: ALT (SGPT) 138 U/L (0-50); AST (SGOT) 98 U/L (17-59); Albumin 3.1 g/dl (3.5-5.0); Alkaline Phosphatase 165 U/L (38-126); Blood Urea Nitrogen 60 mg/dl (9-20); Carbon Dioxide 19 mmol/L (22-30); Chloride 104 mmol/L (98-107); Estimated Creatinine Clearance 33 ml/min; Glucose 320 mg/dl (70-99); Sodium 138 mmol/L (135-145); Total Bilirubin 2.5 mg/dl (0.2-1.3); Total Protein 5.8 g/dl (6.3-8.2); eGFR 31.63
[2024-01-31 07:55] LABS: Glucose - Point of Care 355 mg/dl (70-99)
[2024-01-31 08:14] LABS: % Eosinophils 1.8 % (0-6); % Lymphocytes 60.7 % (20.5-51.1); % Monocytes 10.7 % (1.7-9.3); % Neutrophils 26.8 % (42.2-75.2); Absolute Lymphocytes 0.3 10^3/uL (1.2-3.4); Absolute Monocytes 0.1 10^3/uL (0.1-0.6); Absolute Neutrophils 0.2 10^3/uL (1.4-6.5); Nucleated Red Blood Cells % 0 % (-)
[2024-01-31] MEDS: NOVOLOG FLEXPEN 5 UNITS SC ×2 (09:25→12:25)
[2024-01-31] MEDS: NOVOLOG FLEXPEN-LOW RESISTANCE 5 UNITS SC (09:26)
[2024-01-31] MEDS: PROTONIX 40 MG PO (09:31)
[2024-01-31] MEDS: OASIS 1 SPRAY PO ×2 (09:31→12:27)
[2024-01-31] MEDS: MIRALAX 17 GRAMS PO (09:31)
[2024-01-31] MEDS: TOPROL XL 25 MG PO (09:32)
--- NOTE | 2024-01-31 10:53 | W.PN.HOSP.TC ---
Today's Communication/Plan
-
Patient and his have agreed to home hospice -- discharge to home with home hospice today
Assessment / Plan
Assessment / Plan
Physical Exam
General: Not in acute distress
HEENT: Normocephalic
Respiratory: Clear to Auscultation Bilaterally
Cardiac: S1/S2 and Tachycardic
GI: Soft, Nontender and Nondistended. Positive bowel sounds.
Musculoskeletal: No Edema
Neuro: Awake, Alert, Oriented, No Motor Deficits and Nonfocal/Grossly Intact
Psych: Calm
CT a/p
1).There is low-density collection in the anterior pelvic wall measuring 1.7 x 4.0 x 3.0 cm in AP, transverse and craniocaudal dimensions respectively consistent with abscess and associated with a linear soft tissue density extending to the anterior
skin surface which, given the patient's clinical history, I suspect this fistula from the abscess to the skin surface
2).There is moderate feces in rectum suggesting fecal impaction with associated perirectal edema suggesting stercoral colitis
3).There is cystectomy, and ureteral diversion with right lower quadrant urostomy
4).There is moderate left-sided renal cortical atrophy
There is 2 mm nonobstructing calculus in the midportion of the left kidney

Assessment/Plan
1. Neutropenic fever
Sepsis was present on admission and is still being monitored, evaluated or treated
Streptococcus bovis bacteremia - had recent colonoscopy with removal of high-grade dysplastic polyp. No indication for repeat c-scop.
-Presented for generalized weakness. Found to be febrile in the ER
-Pancytopenic with Hbg 6.9, TWBC 0.8, ANC 0 and plt 18 at admit
-Blood culture growing streptococcus bovis. C-scope in November showing high grade dysplastic polyp.
-ID following help appreciated: no more antibiotics as they would not benefit patient in their opinion
-Oncology following, patient got dose of filgrastim/granix.
-Neutropenic precautions
-Patient and his have agreed to home hospice -- discharge to home with home hospice today
2. Purulent drainage from abdominal skin
MRSA abdominal wall abscess
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
-Patient have history of abdominal hernia repair with mesh which likely has been infected
-Patient reported to having some drainage from surgical incision site small track, which dried for last [address] abdomen pelvis without contrast report as above.
-Clinically purulent drainage, cultured and growing MRSA
-Discussed with general surgery of consult and no indication for any debridement. Can be consulted if any concern of impartial drainage/expanding localized collection.
-Patient not a candidate for surgical mass removal.
-Appreciate ID: ID physician spoke extensively with the patient and his and mentioned that given all of patient's underlying conditions, there is no real benefit to further antibiotic therapy; MRSA noted from the abdominal wound, unfortunately,
given patient's underlying allergies (tetracycline, Bactrim), there are no oral options.
-Patient and his have agreed to home hospice -- discharge to home with home hospice today
3. AML
MDS
Pancytopenia
-Follows with Dr. Ramses Cruz,
-Got Vidaza on 01/17 and 01/18, could not finish 5-day course
-Getting PRBC/platelets as needed. Got 3 platelets and 2u prbc so far.
-Ordered 1 unit platelets on 01/29/24
4. Acute transaminitis
-CT abdomen pelvis did not show any liver parenchymal abnormalities
-Not on any hepatotoxic medication. Patient chemo med/Vidaza does not cause transaminitis
-Hepatitis panel
-Abd US negative.
-Appreciate gastroenterology evaluation
5. IDDM
-Maintain on home regimen of long-acting insulin with Premeal
-Dose of premeal insulin was previously increased
6. Essential Hypertension
- continue on home dose of Toprol XL
7. Permanent Atrial fib
-HR remains elevated, asymptomatic
-resumed back on toprol xl
-Off of Coumadin with leukemia/pancytopenia
8. Asymptomatic bacteriuria
-Patient denies of any dysuria. Urine culture growing gram-negative bacilli/Enterococcus/streptococcus
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
-Cr increased again to 2.0
10. Severe constipation
-CT abdomen pelvis showing possible fecal impaction with large amount of stool in rectum
-Patient had good bowel movement with Dulcolax suppository and oral laxative therapy
-Patient did not feel completely felt relieved, so enema provided on Monday
-Check abdominal x-ray in the morning to assess residual stool amount
History of bladder cancer s/p chemoradiation
History of prostatectomy
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
COPD
DNR/DNI
SCD
More than 30 minutes spent in discharge including
Final examination of the patient
Summarizing hospital stay
Instructions for continuing care to all relevant caregivers
Preparation of discharge records, prescriptions, and referral forms
Total time spent (in minutes): 34
Anticipated Discharge: Today
Subjective/Interval History
-
Date of Service: January 31, 2024
Patient was seen and examined. He reported no new symptoms or complaints.
Objective Data
-
Labs:
Laboratory Results
01/31/24
06:54
WBC 0.6 L*
Hgb 7.5 L
Hct 23.1 L
Plt Count 16 L*
Sodium 138
Potassium 5.0
Chloride 104
Carbon Dioxide 19 L
BUN 60 H
Creatinine 2.1 H
Glucose 320 H
Calcium 9.0
Total Bilirubin 2.5 H
AST 98 H
ALT 138 H
Alkaline Phosphatase 165 H
Vital Signs:
Vital Signs
Temp Pulse Resp BP Pulse Ox
98.2 F 115 19 116/78 96
01/31/24 07:40 01/31/24 07:40 01/31/24 07:40 01/31/24 07:40 01/31/24 07:40
I&O
01/30/24 01/31/24 02/01/24
06:59 06:59 06:59
Intake Total 1241 / 1241 1200 / 1200
Output Total 1400 / 1400 1225 / 1225
Balance -159 / -159 - /
[2024-01-31 11:43] LABS: Glucose - Point of Care 348 mg/dl (70-99)
[2024-01-31] MEDS: NOVOLOG FLEXPEN-LOW RESISTANCE 4 UNITS SC (12:26)
--- NOTE | 2024-01-31 13:07 | CM ---
CM reviewed chart, plan for discharge home with Hospice. CM confirmed with [facility], equipment will be delivered today at 12:00 p.m. , nurses will be out to home around 2:30 p.m. Out of Hospital DNR form signed, placed in chart.
Confirmed ambulance transport scheduled for 1:00 p.m. CM will continue to follow for all discharge planning needs.
Plan; home with Hospice, 1:00 p.m. ambulance transport
[2024-01-31 15:28] VITALS: BP 109/59
== END 2024-01-31 15:38 | disposition hospice, home (50) | DRG 919 ==
LOC: 4 WEST ACU 15:52
PROVIDERS: Clinical Nurse Specialist Family Health; Emergency Medicine; Hospitalist; Internal Medicine Infectious Disease; Nurse Practitioner Acute Care; ADMITTING PHYSICIAN Internal Medicine; ATTENDING PHYSICIAN Hospitalist; CONSULT PHYSICIAN Internal Medicine Gastroenterology; EMERGENCY PHYSICIAN Emergency Medicine; FAMILY PHYSICIAN Internal Medicine; OTHER PHYSICIAN Internal Medicine Hematology & Oncology; OTHER PHYSICIAN Internal Medicine Infectious Disease
PROC: 30233R1 Transfusion of Nonautologous Platelets into Peripheral Vein, Percutaneous Approach (ICD-10-PCS; 2024-01-23)
PROC: 30233N1 Transfusion of Nonautologous Red Blood Cells into Peripheral Vein, Percutaneous Approach (ICD-10-PCS; 2024-01-23)
DX: T85.79XA Infection and inflammatory reaction due to other internal prosthetic devices, implants and grafts, initial encounter (principal); A40.8 Other streptococcal sepsis; C92.00 Acute myeloblastic leukemia, not having achieved remission; D61.818 Other pancytopenia; I48.21 Permanent atrial fibrillation; L02.211 Cutaneous abscess of abdominal wall; Z66 Do not resuscitate; Z51.5 Encounter for palliative care; J84.9 Interstitial pulmonary disease, unspecified; N17.9 Acute kidney failure, unspecified; R64 Cachexia; E11.22 Type 2 diabetes mellitus with diabetic chronic kidney disease; N18.32 Chronic kidney disease, stage 3b; J44.9 Chronic obstructive pulmonary disease, unspecified; I12.9 Hypertensive chronic kidney disease with stage 1 through stage 4 chronic kidney disease, or unspecified chronic kidney disease; Z92.3 Personal history of irradiation; Z87.891 Personal history of nicotine dependence; Z88.1 Allergy status to other antibiotic agents; Z88.2 Allergy status to sulfonamides; Z79.4 Long term (current) use of insulin; Z79.899 Other long term (current) drug therapy; E11.65 Type 2 diabetes mellitus with hyperglycemia; E11.40 Type 2 diabetes mellitus with diabetic neuropathy, unspecified; Z79.01 Long term (current) use of anticoagulants; Z85.51 Personal history of malignant neoplasm of bladder; K56.41 Fecal impaction; Y83.8 Other surgical procedures as the cause of abnormal reaction of the patient, or of later complication, without mention of misadventure at the time of the procedure; K21.9 Gastro-esophageal reflux disease without esophagitis; E78.00 Pure hypercholesterolemia, unspecified; T45.1X5A Adverse effect of antineoplastic and immunosuppressive drugs, initial encounter; Z93.6 Other artificial openings of urinary tract status; I95.9 Hypotension, unspecified; R74.01 Elevation of levels of liver transaminase levels; D70.1 Agranulocytosis secondary to cancer chemotherapy; B95.62 Methicillin resistant Staphylococcus aureus infection as the cause of diseases classified elsewhere; Z68.25 Body mass index [BMI] 25.0-25.9, adult
CPT/HCPCS: 71046; 74018; 74176; 76700; 80053; 80202; 81003; 81015; 82248; 82962; 83036; 83605; 83615; 83735; 84550; 85025; 85379; 85384; 85610; 85730; 86705; 86706; 86708; 86709; 86803; 86850; 86900; 86901; 86920; 87040; 87070; 87077; 87086; 87147; 87186; 87205; 87340; 87502; 87811; 93005; 93306; 93975; 96374; 97163; 97167; 97530; 99291; J1447; P9016; P9073